=== PATIENT | male | born 1960 | race American Indian/Alaskan Native ===

== ENCOUNTER 2017-01-22 13:02 | Inpatient (IN) | payer OTHER ==
[2017-01-22] MEDS ORDERED: ATROPINE 0.1% (CARDIAC) ONE (13:05)
[2017-01-22] MEDS ORDERED: ATROPINE IV ONE ×2 (13:13→14:00)
[2017-01-22] MEDS ORDERED: INTROPIN DRIP 800 MG/D5W 250 ML 800 MG/250 ML BAG IV ONE (13:14)
[2017-01-22 13:55] LABS: Basophils % (Auto) 0.5 % (0.0-1.8); Eosinophils % (Auto) 1.9 % (0.0-4.3); Hematocrit 40.6 % (35.5-45.6); Hemoglobin 12.9 gm/dl (11.8-15.2); Mean Corpuscular HGB Conc 32 % (32-34); Mean Corpuscular Hemoglobin 27 pg (28-32); Mean Corpuscular Volume 85 fl (84-94); Platelet Count 136 K/mm3 (140-440); Red Blood Count 4.77 M/mm3 (3.65-5.03); Red Cell Distribution Width 16.3 % (13.2-15.2); White Blood Count 4.5 K/mm3 (4.5-11.0)
--- NOTE | 2017-01-22 14:00 | History and Physical Report ---
History of Present Illness Chief complaint: Unresponsive History of present illness: 56 YO Male with HTN, Obesity, DM, Metabolic Syndrome, Medication Noncompliance presents to ED for evaluation. Pt unable to provide history. History taken from EMS, and ED staff. EMS was notified, and upon arrival the patient was found down , unresponsive and diaphoretic. EMS found the patient to have a heart rate of 26, and serum glucose of 400. Pt was placed him on a external pacemaker and became minimally responsive but was still nonverbal and mostly not following commands. No reports of fever, chills, CP, Palpitation, NVD, prodictive cough, recent ill contacts, foreign travel, individual/family history of DVT/PE, leg swelling, calf pain, prolonged travel/immobility, hemoptysis. Past History Past Medical History: diabetes, hypertension, other (metabolic sundrome,) Past Surgical History: Other (Right Ankle) Social history: single. denies: smoking, alcohol abuse, prescription drug abuse Family history: CAD, hypertension Medications and Allergies Allergies Allergy/AdvReac Type Severity Reaction Status Date / Time Unable to Assess Allergy Verified 01/22/17 13:12 Home Medications Medication Instructions Recorded Confirmed Last Taken Type Furosemide [Lasix TAB] 20 mg PO DAILY 01/22/17 01/22/17 Unknown History Nitroglycerin [Nitrostat] 0.4 mg SL PRN PRN 01/22/17 01/22/17 Unknown History Torsemide [Demadex] 1.5 tab PO DAILY 01/22/17 01/22/17 Unknown History Active Meds: Active Medications Atropine Sulfate (Atropine) 1 mg IV ONCE.ED ONE Stop: 01/22/17 14:01 Dopamine HCl/Dextrose (Intropin Drip 800 Mg/D5w 250 Ml) 800 mg in 250 mls @ 4.252 mls/hr IV TITR ONE; 2 MCG/KG/MIN PRN Reason: Protocol Stop: 01/25/17 00:01 Last Titration: 01/22/17 13:40 Dose: 7 mcg/kg/min, 14.88 mls/hr Review of Systems ROS unobtainable: due to mental status Exam - Constitutional Vitals: Temp Pulse Resp BP Pulse Ox 97.2 F L 36 L 18 93/77 100 01/22/17 13:44 01/22/17 13:47 01/22/17 13:47 01/22/17 13:47 01/22/17 13:47 General appearance: Present: severe distress - EENT Eyes: Present: EOM intact - Neck Neck: Present: supple, normal ROM - Respiratory Respiratory effort: labored Respiratory: bilateral: diminished - Cardiovascular Rhythm: other (bradycardic) Heart Sounds: Present: S1 & S2 - Extremities Extremities: pulses symmetrical, No edema Extremity abnormal: edema Peripheral Pulses: within normal limits - Abdominal General gastrointestinal: Present: soft, non-tender, non-distended, normal bowel sounds Male genitourinary: Present: normal - Integumentary Integumentary: Present: clear, dry, pale, decreased turgor - Musculoskeletal Musculoskeletal: generalized weakness - Psychiatric Psychiatric: no intact judgment & insight, no memory intact - Neurologic Neurologic: moves all extremities, no gait normal Results - Labs CBC & Chem 7: 01/22/17 13:48 01/22/17 14:53 Labs: Abnormal lab results 01/22/17 Range/Units 13:48 Edmunds % (Auto) 13.3 H (0.0-7.3) % Assessment and Plan - Patient Problems (1) Cardiogenic shock Current Visit: Yes Status: Acute Plan to address problem: Cardiology consulted, pt placed on IV pressor support, Pt taken urgently to laboratory assistant. Transcutaneous pacer placed in ED. The high probability of a clinically significant, sudden or life threatening deterioration of the [Cardiac, pulmonary, renal] system(s) required my full and direct attention, intervention and personal management. The aggregate critical care time was [65] minutes. This time is in addition to time spent performing reported procedures but includes the following: [x] Data Review and interpretation [x] Patient assessment and monitoring of vital signs [x] Documentation [x] Medication orders and management (2) NSTEMI (non-ST elevated myocardial infarction) Current Visit: Yes Status: Acute Plan to address problem: Cardiology consulted, Pt taken urgently to laboratory assistant, anticoagulation pending results of laboratory assistant intervention, as per cardiology team. (3) ARF (acute renal failure) Current Visit: Yes Status: Acute Qualifiers: Acute renal failure type: A Plan to address problem: IVF resuscitation, supportive care, monitor uop q shift (4) ARF (acute respiratory failure) Current Visit: Yes Status: Acute Qualifiers: Respiratory failure complication: R (5) Encephalopathy Current Visit: Yes Status: Acute Plan to address problem: supportive care, CT head, (6) Hyponatremia syndrome Current Visit: Yes Status: Acute Plan to address problem: IVF replacement, repeat bmp (7) DVT prophylaxis Current Visit: Yes Status: Acute
--- NOTE | 2017-01-22 14:01 | Emergency Department Report ---
HPI - General Chief Complaint: Dyspnea/Respdistress - HPI HPI: This is a 56-year-old AA male presents to the emergency department via EMS from home after the patient was found unresponsive. EMS found the patient to have a heart rate of 26 and they also did an Accu-Chek and found the sugar to be greater than 400. They placed him on a external pacemaker with pads. Once he was getting externally paced, the patient was more responsive but was still nonverbal and mostly not following commands. Secondary to the patient's current condition he is a poor historian but the medications that he arrived with show a high probability of a history of CHF. There also appears to be some history of coronary artery disease and/or angina as he has nitroglycerin sublingual available as well. ED Past Medical Hx - Past Medical History Previous Medical History?: Yes Hx Congestive Heart Failure: Yes Hx Diabetes: Yes - Social History Smoking Status: Unknown if ever smoked - Medications Home Medications: Home Medications Medication Instructions Recorded Confirmed Last Taken Type Furosemide [Lasix TAB] 20 mg PO DAILY 01/22/17 01/22/17 Unknown History Nitroglycerin [Nitrostat] 0.4 mg SL PRN PRN 01/22/17 01/22/17 Unknown History Torsemide [Demadex] 1.5 tab PO DAILY 01/22/17 01/22/17 Unknown History ED Review of Systems ROS: Stated complaint: UNRESPONSIVE Other details as noted in HPI Comment: Unobtainable due to pts medical conditions Physical Exam - Physical Exam Vital Signs: Vital Signs 01/22/17 01/22/17 01/22/17 13:05 13:17 13:44 Temperature 97.2 F L Pulse Rate 30 L 30 L Respiratory 26 H Rate Blood Pressure 104/76 [Left] O2 Sat by Pulse 100 100 Oximetry 01/22/17 13:47 Temperature Pulse Rate 36 L Respiratory 18 Rate Blood Pressure 93/77 [Left] O2 Sat by Pulse 100 Oximetry Physical Exam: GENERAL: The patient is ill-appearing and unresponsive. HENT: Normocephalic. Atraumatic. Patient has moist mucous membranes. EYES: Patient's eyes are open but he does not display any current extraocular motion. Pupils equal reactive to light bilaterally. NECK: Supple. Trachea is midline. CHEST/LUNGS: Clear to auscultation. There is no respiratory distress noted. HEART/CARDIOVASCULAR: Regular. There is no tachycardia. There is no gallop rub or murmur. ABDOMEN: Abdomen is soft. Patient has normal bowel sounds. SKIN: Skin is slightly cool but dry. NEURO: Patient's eyes are open but he does not appear unresponsive. He does not follow any commands. He does withdraw to painful stimuli. He does have a gag reflex. MUSCULOSKELETAL: There is no tenderness to palpation or obvious deformity. Femoral pulses +2 over 4 bilaterally. ED Course Vital Signs 01/22/17 01/22/17 01/22/17 13:05 13:17 13:44 Temperature 97.2 F L Pulse Rate 30 L 30 L Respiratory 26 H Rate Blood Pressure 104/76 [Left] O2 Sat by Pulse 100 100 Oximetry 01/22/17 13:47 Temperature Pulse Rate 36 L Respiratory 18 Rate Blood Pressure 93/77 [Left] O2 Sat by Pulse 100 Oximetry - Consultations Consultation #1: I spoke with the metal lather on-call, Dr. Tip Sagastume, who is going to come into the emergency department and/or Hospital to place a temporary pacemaker. microbiology lab manager team has been notified. 01/22/17 14:02 - Central Line Placement Right Femoral Consent Obtained: emergent situation Time Out Performed: Yes Patient Placed on Monitor/Pulse Ox: Yes MD Prep: mask, gown, gloves Central Line Prep: Chlorhexidine scrub Local Anesthesia Used: Lidocaine 1% Amount of Anesthesia Used (mls): 3 Ultrasound Used for Placement: Yes Central Line Lumen Inserted: triple Bloods Obtained for Lab: No Central Line Position: good blood return, sutured in place with nyl Dressing Applied: Tegaderm, sterile gauze/tape Patient Tolerated Procedure: well Complications: none ED Medical Decision Making - Lab Data Result diagrams: 01/22/17 21:00 01/22/17 21:00 - EKG Data When compared to previous EKG there are: previous EKG unavailable Interpretation: other (junctional bradycardia with PVCs, low voltage QRS, nonspecific ST-T waves with T-wave inversions to the lateral leads V4 through V6 , prolonged QT, 36 bpm) - Radiology Data Radiology results: image reviewed interpreted by me: Chest x-ray shows some mild cardiomegaly and concern for a slightly widened mediastinum. No pneumothorax or pleural effusions. - Medical Decision Making 56-year-old male presents to the emergency department after he was found unresponsive and was found by EMS to have significant bradycardia with a heart rate of 26. Patient did come in with the same bradycardia and was responsive only to painful stimuli. He did have a gag reflex and spontaneous eye opening and had a pulse ox of 100% with supplemental oxygen and therefore did not appear to require intubation immediately. EKG showed a junctional sustained significant bradycardia but no ST elevation RI or any obvious heart block. He was given atropine without any improvement. He had palpable femoral pulses but no obtainable blood pressure. He was started on dopamine and was titrated until we had a blood pressure of about 100/40. Patient was placed back on the external pacers using the pads but it did not necessarily appear as if there was capture or perfusion. A right femoral central line was placed in case other pressors or resuscitation was necessary. Cardiology was consult it and came into the emergency department and took the patient to the Family Psychologist for a temporary pacer. Just prior to going to the sanitation laborer the patient did show some slight improvement and started talking, looking around. It appeared as if the patient has a hearing impairment or is deaf. The patient was admitted to the ICU from the Family Psychologist and was accepted for admission by the hospitalist Dr. Hurley. Dr. Hurley had sent the patient for a CT of the chest secondary to the chest x-ray but did not result in showing any concern for dissection or any other acute process of the chest. - Differential Diagnosis RI, heart block, dysrhythmia Critical Care Time: Yes Critical care time in (mins) excluding proc time.: 45 Critical care attestation.: If time is entered above; I have spent that time in minutes in the direct care of this critically ill patient, excluding procedure time. Critical care time was spent on this patient during his initial evaluation, multiple re-evaluations , titration of dopamine, ordering and interpretation of labs and imaging, discussion with the metal lather, discussion with the admitting hospitalist. This does not include time spent doing the right femoral central venous catheter placement. Critical Care Time: 45 minutes ED Disposition Clinical Impression: Cardiogenic shock, Hyperkalemia, Bradycardia with 31-40 beats per minute, Elevated troponin ARF (acute renal failure) Qualifiers: Acute renal failure type: unspecified Qualified Code(s): N17.9 - Acute kidney failure, unspecified Disposition: 09 OP ADMIT IP TO THIS HOSP Is pt being admited?: Yes Condition: Serious
[2017-01-22 14:04] LABS: INR 1.36 (0.87-1.13)
[2017-01-22 14:05] LABS: Partial Thromboplastin Time 34.4 Sec. (24.2-36.6)
[2017-01-22] MEDS ORDERED: PROVENTIL IH PRN (14:20)
[2017-01-22 14:37] LABS: Anion Gap TNR mmol/L; Blood Urea Nitrogen TNR mg/dL (9-20); Carbon Dioxide TNR mmol/L (22-30); Chloride TNR mmol/L (98-107); Sodium TNR mmol/L (137-145)
[2017-01-22 14:38] LABS: BUN/Creatinine Ratio TNR; Calcium TNR mg/dL (8.4-10.2); Glucose TNR mg/dL (75-100); Potassium TNR mmol/L (3.6-5.0)
[2017-01-22 14:39] LABS: Cholesterol TNR mg/dL (50-199); HDL Cholesterol TNR mg/dL (40-59); LDL Cholesterol,Direct TNR mg/dL (50-130); Triglycerides TNR mg/dL (2-149)
[2017-01-22] MEDS ORDERED: HEPARIN/NS 5000 UNIT/500ML(CATH LAB) 500 ML IR ONE (15:02)
[2017-01-22] MEDS: XYLOCAINE 2% INFILTRATI ONE ×2 (15:04→15:05)
[2017-01-22 15:10] LABS: BUN/Creatinine Ratio 14.21; Chloride 101.2 mmol/L (98-107); Potassium 5.9 mmol/L (3.6-5.0)
[2017-01-22 15:12] LABS: Albumin/Globulin Ratio 1.7 %; Bilirubin,Direct 0.5 mg/dL (0-0.2); Bilirubin,Indirect 0.5 mg/dL; Total Protein 6.3 g/dL (6.3-8.2)
--- NOTE | 2017-01-22 17:27 | Cardiac Catherization Report ---
TEMPORARY PACEMAKER PROCEDURE The patient is a 56-year-old male who came to the Emergency Room with an altered mental status, hyperkalemia and heart rate of 36 with evidence of complete heart block on the 12 lead electrocardiogram. A temporary pacemaker was recommended to stabilize the patient's heart rate and rhythm. PROCEDURE: The patient was prepped and draped in the sterile fashion exposing the right femoral vein. The right femoral vein was cannulated via the Seldinger technique and a sheath was placed, 6-Kittitian. Temporary pacemaker was advanced under fluoroscopic guidance and position in the right ventricle. The threshold was deemed to be less than one milliamp. The device was sutured into place. There was no evidence of hematoma. The patient was trashing about and uncooperative during the procedure. The pacemaker was set at 3 milliamps, heart rate of 70, synchronized. COMPLICATIONS: None. ESTIMATED BLOOD LOSS: Less than 10 mL. PREPROCEDURE DIAGNOSIS: Complete heart block. POSTPROCEDURE DIAGNOSES: Complete heart block. SEDATION: No intravenous sedation was given. He received 20 mL of subcutaneus Xylocaine. FINAL IMPRESSION: Complete heart block with bradycardia, unstable hemodynamics. PLAN: Temporary pacemaking, echocardiography, serial cardiac enzymes, consider permanent pacemaker, correct hyperkalemia. JOB# [id number] DANNY/KARINA CORADO
--- NOTE | 2017-01-22 17:55 | Cat Scan Report ---
FINAL REPORT PROCEDURE: CT CHEST WO CON TECHNIQUE: Computerized axial tomography of the chest was performed without contrast material. This study is performed without intravenous contrast and the sensitivity for pathology, including neoplasms, adenopathy, abscess, pulmonary embolism and aortic dissection, is reduced. HISTORY: dypsnea COMPARISON: No prior studies are available for comparison. TECHNICAL QUALITY: Satisfactory. FINDINGS: Heart and pericardium: Heart is enlarged. No pericardial effusion or thickening. Thoracic aorta: Normal contour. Pulmonary vasculature: Normal. Lymph nodes: 2 centimeter short axis right paratracheal lymph node is noted. Lungs: There are patchy bilateral airspace infiltrates, noted throughout the lungs diffusely, which may be related to infectious infiltrates. There may be a component of pulmonary edema. Pleural space: No effusion, thickening, or pneumothorax. Musculoskeletal structures: No significant abnormality. Upper abdominal structures: Small amount of free fluid is seen in the upper abdomen. IMPRESSION: Cardiomegaly. Bilateral pulmonary infiltrates, which may be related to pneumonia. Cannot exclude pulmonary edema.
[2017-01-22] MEDS ORDERED: KIONEX PO ONE (21:52)
[2017-01-22 22:01] LABS: BUN/Creatinine Ratio 15.62; Calcium 7.4 mg/dL (8.4-10.2); Chloride 106.3 mmol/L (98-107); Potassium 5.4 mmol/L (3.6-5.0)
[2017-01-22 22:05] LABS: INR 1.35 (0.87-1.13)
[2017-01-22] MEDS: CATAPRES PO PRN (22:10)
[2017-01-22 22:17] LABS: Hematocrit TNR % (35.5-45.6); Hemoglobin TNR gm/dl (11.8-15.2); Mean Corpuscular HGB Conc TNR % (32-34); Mean Corpuscular Hemoglobin TNR pg (28-32); Mean Corpuscular Volume TNR fl (84-94); Mean Platelet Volume TNR fl (6-12); Platelet Count TNR K/mm3 (140-440); Red Blood Count TNR M/mm3 (3.65-5.03); Red Cell Distribution Width TNR % (13.2-15.2); White Blood Count TNR K/mm3 (4.5-11.0)
[2017-01-22 22:18] LABS: Basophils % (Auto) TNR % (0.0-1.8); Eosinophils % (Auto) TNR % (0.0-4.3)
[2017-01-22 22:19] LABS: Diff Status TNR
--- NOTE | 2017-01-23 02:13 | Consultation ---
HISTORY OF PRESENT ILLNESS: The patient is a 56-year-old male who was found unresponsive with a heart rate of 26 and a blood sugar of 400. He has been unable to give any history. He became more responsive after an external pacemaker was placed. A Cardiology consult was requested because of persistent bradycardia and evidence of complete heart block on EKG. His past history is not available. Given his medications, it is suspected that he has hypertension, possible heart failure and possible coronary disease. He normally goes to [place]. There were no ST changes to suggest an acute myocardial infarction. There are no physical findings to suggest congestive heart failure. PAST HISTORY: There is no family available. It is unknown if he has had any operations, smoking history, alcohol history or if he is compliant with his medications. It is suspected that he has diabetes. MEDICATIONS: Includes sublingual nitroglycerin, Demadex, Lasix. REVIEW OF SYSTEMS: Not available at this time. PHYSICAL EXAMINATION: GENERAL: Well-developed, moderately overweight, alert, but disoriented and sometimes agitated. HEENT: Unremarkable. NECK: Reveals mild JVD. There are no bruits. Neck supple, no masses. LUNGS: Clear. No labored respirations. HEART: Bradycardia, rhythm regular, no rubs, murmurs, gallops appreciable at this time. ABDOMEN: Soft, nontender, no masses, somewhat distended. Bowel sounds intact, but diminished. NEUROLOGIC: Grossly symmetrical other than an altered mental status. SKIN: Clear. EXTREMITIES: No cyanosis or clubbing. There is trace pedal edema. There is a scar about the right ankle suggesting previous surgery. LABORATORY DATA: EKG shows sinus rhythm with complete heart block, junctional rhythm of about 36. There are nonspecific ST-T changes. The T-waves are either flattened or slightly inverted. Blood tests remarkable for potassium 5.9. Platelet count 136. Creatinine 1.9. Blood sugar 334. CO2 level 25. Anion gap 17. Mild elevation of alkaline phosphatase and CK. TSH normal. IMPRESSION: 1. Complete heart block with bradycardia in labile blood pressure readings, hypertensive at times, but he has been on IV dopamine. 2. Uncontrolled diabetes. 3. Acute renal failure with hyperkalemia. 4. Obesity. 5. Altered mental status, consider metabolic encephalopathy, intracranial process, cerebral hypoperfusion. 6. Cardiomegaly on chest x-ray: CAT scan pending. 7. Suspect history of hypertension. 8. Suspect history of coronary artery disease: There is no suggestion of acute coronary syndrome at this time. PLAN: Admit to ICU, hydrate, insulin, temporary pacemaking, echocardiography. Consider Neurology consultation. Thank you for this consultation. JOB# [id number] DANNY/NTS
--- NOTE | 2017-01-23 07:26 | XRay Report ---
AP CHEST: HISTORY: chest pain No comparison. Mild cardiomegaly and pulmonary venous congestion are identified. No evidence for pneumonia, pleural effusion or pneumothorax. The thoracic cage is grossly intact. IMPRESSION: Cardiomegaly and pulmonary venous congestion.
[2017-01-23 07:40] LABS: Basophils % (Auto) 0.3 % (0.0-1.8); Eosinophils % (Auto) 1.9 % (0.0-4.3); Hematocrit 36.9 % (35.5-45.6); Hemoglobin 11.7 gm/dl (11.8-15.2); Mean Corpuscular HGB Conc 32 % (32-34); Mean Corpuscular Hemoglobin 27 pg (28-32); Mean Corpuscular Volume 85 fl (84-94); Platelet Count 122 K/mm3 (140-440); Red Blood Count 4.35 M/mm3 (3.65-5.03); Red Cell Distribution Width 16.2 % (13.2-15.2); White Blood Count 6.9 K/mm3 (4.5-11.0)
--- NOTE | 2017-01-23 08:07 | Admit Criteria Form ---
Admission Criteria Documentation: MYOCARDIAL INFARCTION Clinical Indications for Admission to Inpatient Care (Place 'X' for any and all applicable criteria): Admission is indicated for 1 or more of the following (1)(2)(3)(4): [ X]I. Acute AL [ ]II. Contraindications and/or Inappropriate clinical situations for Observational Care in patients with Myocardial Infarction, when ANY ONE of the following is required: [ ]a) Patient with High risk of cardiac embolism (e.g, patients with previous cardiac embolism, LVEF < 40%, age >75 and patients with prosthetic valve) 18 [ ]b) Patient with Moderate risk including DM patient, CAD and patient aged 65-75 18 [ ]c) Patient with any change in cardiac biomarker especially troponin should be managed as high risk in an inpatient setting 19 [ ]d) Physician judgement irrespective of ECG and other diagnostic findings 20 [ ]III.General contraindications and/or Inappropriate clinical situations for Observational Care in patients with Myocardial Infarction, when ANY ONE of the following is required: [ ]a) Prediction of prolongation of LOS based on ANY ONE of the following may be considered as a contraindication for observational care 2, 3, 4, 5, 6, 7, 8, 9, 10, 11 [ ]i) Age > 65 yrs. [ ]ii) Patient arriving by ambulance [ ]iii) Patient with high acuity [ ]iv) Patient requiring vital sign monitoring [ ]v) Patient on IV medication [ ]b) Systolic blood pressures greater than or equal to 180mmHg 3,12 [ ]c) Patient with altered mental status including delirium and other alteration of consciousness, (3) [ ]d) Patient whose discharge disposition will be to a penitentiary home or rehabilitation home should not be managed in Emergency Department Observation Unit. CMS rule requires 3 days hospital stay before such placement. 3,13 [ ]e) Patient with failure to thrive due to broad array of etiologies 3 ,16,17 [ ]f) Inability to ambulate 3,14 Extended stay beyond goal length of stay may be needed for (1)(18)(20)(24)(25): [ ]a) Hemodynamic instability, persisting symptoms after intensive medical management, or recurring severe, prolonged symptoms [ ]b) Intravascular procedural complications such as acute vessel closure, stent thrombosis, stent malposition, or vessel dissection (26)(27)(28) [ ]c) Extravascular procedural complications such as retroperitoneal hematoma , pericardial effusion, or cardiac tamponade [ ]d) Entry site complications causing bleeding, hematoma or distal ischemia and requiring ongoing monitoring, surgical repair or surgical thrombectomy. Dangerous arrhythmia [ ]e) Complicated percutaneous coronary intervention (e.g., unsuccessful percutaneous coronary intervention or percutaneous coronary intervention of non- [place] vessel) [ ]f) Urgent or emergent surgery for complications of AL (e.g., ventricular rupture, valvular insufficiency) [ ]g) Surgical revascularization via coronary artery bypass graft [ ]h) Heart failure (e.g., pulmonary edema) [ ]i) Unstable pulmonary comorbidities, including COPD or pneumonia (31) [ ]j) Acute renal failure The original [employer] content created by [employer] has been revised. The portions of the content which have been revised are identified through the use of italic text or in bold, and [employer] has neither reviewed nor approved the modified material. All other unmodified content is copyright [facility] [employer] Please see references footnoted in the original [employer] edition 2016 Admission Criteria Met: Yes
[2017-01-23 08:34] LABS: Albumin 3.8 g/dL (3.9-5); Albumin/Globulin Ratio 1.4 %; Bilirubin,Total 1.1 mg/dL (0.1-1.2); Calcium 8.5 mg/dL (8.4-10.2); Magnesium 1.7 mg/dL (1.7-2.3); Potassium 4.7 mmol/L (3.6-5.0); Total Protein 6.6 g/dL (6.3-8.2)
--- NOTE | 2017-01-23 10:19 | Progress Note ---
Assessment and Plan Assessment and plan: 56 YO Male with HTN, Obesity, DM, Metabolic Syndrome, Medication Noncompliance presents to ED for evaluation. Pt unable to provide history. History taken from EMS, and ED staff. EMS was notified, and upon arrival the patient was found down , unresponsive and diaphoretic. As per patient he fell on his right shoulder and woke up shoulder pain. EMS found the patient to have a heart rate of 26, and serum glucose of 400. Pt was placed him on a external pacemaker, he went on to have transvenous pacemaker which is in his left groin. Bradycardia leading to cardiogenic syncope He received atropine 2, transcutaneous pacing and was converted to transvenous pacing Continue transvenous pacing, rate has been reduced by cardiology It is suspected that it was most likely due to hyperkalemia which has now been corrected, we'll continue to monitor Case discussed with cardiology/[facility] fu echo ACS ruled out, NSTEMI ruled out, Trop max was 0.04 case also discussed with [facility], the agreed with him staying in this hospital to finish out his care Hyperkalemia sp Kayexalate, now resolved, continue to monitor levels daily\ avoid any K sparing diuretic, RUFUS or ARB Cardiogenic shock Has only weaned off dopamine drip Acute on chronic CHF with pulmonary venous congestion IV diuresis as tolerated, optimize meds, fup echo acute renal failure/Vasomotor nephropathy creat from 1.9 to 1.6, donald in place resolving with IVF, check Renal US and nephrology consult acute respiratory failure with Hypoxia continue oxygen supplement Toxic Metabolic Encephalopathy improving, due to high K and Bradycardia, now resolved R shoulder pain/ sp fall check Xray Hyponatremia syndrome IVF replacement, DVT prophylaxis lovenox, The high probability of a clinically significant, sudden or life threatening deterioration of the [Cardiac, pulmonary, renal] system(s) required my full and direct attention, intervention and personal management. The aggregate critical care time was [65] minutes. This time is in addition to time spent performing reported procedures but includes the following: [x] Data Review and interpretation [x] Patient assessment and monitoring of vital signs [x] Documentation [x] Medication orders and management History Interval history: The patient does not remember why he is in the hospital. He believes he passed out. States that when he passed out he hit his right shoulder hurts. Hospitalist Physical - Physical exam Narrative exam: General: Patient appears well in no distress HEENT: MMM, EOMI cardiac: S1-S2 heard lungs: clear to auscultation, abdomen: soft, nontender, nondistended bowel sounds positive Right shoulder tenderness extremities: no edema clubbing or cyanosis Skin: no rash or lesion Neuro: Patient is deaf, therefore communicates by writing, Psych: appropriate behavior and mood, cognition intact - Constitutional Vitals: Temp Pulse Resp BP Pulse Ox 97.9 F 71 17 131/89 96 01/23/17 07:55 01/23/17 04:24 01/23/17 04:24 01/23/17 04:24 01/23/17 07:39 Results - Labs CBC & Chem 7: 01/23/17 06:45 01/23/17 06:45 Labs: Laboratory Last Values WBC 6.9 K/mm3 (4.5-11.0) 01/23/17 06:45 RBC 4.35 M/mm3 (3.65-5.03) 01/23/17 06:45 Hgb 11.7 gm/dl (11.8-15.2) L 01/23/17 06:45 Hct 36.9 % (35.5-45.6) 01/23/17 06:45 MCV 85 fl (84-94) 01/23/17 06:45 MCH 27 pg (28-32) L 01/23/17 06:45 MCHC 32 % (32-34) 01/23/17 06:45 RDW 16.2 % (13.2-15.2) H 01/23/17 06:45 Plt Count 122 K/mm3 (140-440) L 01/23/17 06:45 Lymph % (Auto) 20.3 % (13.4-35.0) 01/23/17 06:45 [place] % (Auto) 10.4 % (0.0-7.3) H 01/23/17 06:45 Eos % (Auto) 1.9 % (0.0-4.3) 01/23/17 06:45 Baso % (Auto) 0.3 % (0.0-1.8) 01/23/17 06:45 Lymph # 1.4 K/mm3 (1.2-5.4) 01/23/17 06:45 [place] # 0.7 K/mm3 (0.0-0.8) 01/23/17 06:45 Eos # 0.1 K/mm3 (0.0-0.4) 01/23/17 06:45 Baso # 0.0 K/mm3 (0.0-0.1) 01/23/17 06:45 Add Manual Diff TNR 01/22/17 21:00 Seg Neutrophils % 67.1 % (40.0-70.0) 01/23/17 06:45 Seg Neutrophils # 4.6 K/mm3 (1.8-7.7) 01/23/17 06:45 PT 17.4 Sec. (12.2-14.9) H 01/22/17 21:00 INR 1.35 (0.87-1.13) H 01/22/17 21:00 APTT 34.4 Sec. (24.2-36.6) 01/22/17 13:48 D-Dimer 325.55 ng/mlDDU (0-234) H 01/22/17 17:21 VBG pH 7.371 (7.320-7.420) 01/22/17 13:59 Sodium 141 mmol/L (137-145) 01/23/17 06:45 Potassium 4.7 mmol/L (3.6-5.0) 01/23/17 06:45 Chloride 103.0 mmol/L (98-107) 01/23/17 06:45 Carbon Dioxide 26 mmol/L (22-30) 01/23/17 06:45 Anion Gap 17 mmol/L 01/23/17 06:45 BUN 24 mg/dL (9-20) H 01/23/17 06:45 Creatinine 1.6 mg/dL (0.8-1.5) H 01/23/17 06:45 Estimated GFR 55 ml/min 01/23/17 06:45 BUN/Creatinine Ratio 15.00 % 01/23/17 06:45 Glucose 153 mg/dL (75-100) H 01/23/17 06:45 POC Glucose 270 (70-105) H 01/22/17 17:45 Calcium 8.5 mg/dL (8.4-10.2) 01/23/17 06:45 Magnesium 1.70 mg/dL (1.7-2.3) 01/23/17 06:45 Total Bilirubin 1.10 mg/dL (0.1-1.2) 01/23/17 06:45 Direct Bilirubin 0.5 mg/dL (0-0.2) H 01/22/17 14:25 Indirect Bilirubin 0.5 mg/dL 01/22/17 14:25 AST 18 units/L (5-40) 01/23/17 06:45 ALT 20 units/L (7-56) 01/23/17 06:45 Alkaline Phosphatase 181 units/L (35-129) H 01/23/17 06:45 Total Creatine Kinase 267 units/L (55-170) H 01/22/17 13:48 Troponin T 0.039 ng/mL (0.00-0.029) H 01/22/17 21:00 Total Protein 6.6 g/dL (6.3-8.2) 01/23/17 06:45 Albumin 3.8 g/dL (3.9-5) L 01/23/17 06:45 Albumin/Globulin Ratio 1.4 % 01/23/17 06:45 Triglycerides TNR 01/22/17 13:48 Cholesterol TNR 01/22/17 13:48 LDL Cholesterol Direct TNR 01/22/17 13:48 HDL Cholesterol TNR 01/22/17 13:48 Cholesterol/HDL Ratio TNR 01/22/17 13:48 TSH 3.350 mlU/mL (0.270-4.200) 01/22/17 13:48
--- NOTE | 2017-01-23 11:58 | Progress Note ---
Assessment and Plan Junctional bradycardia secondary to hyperkalemia s/p temporary transvenous pacemaker normal TSH Hyperkalemia Acute renal failure Hearing impaired/Deaf Diabetes Hypertension Obese Plan: Temporary TVP rate reduced to 50bpm on demand. Continue to monitor. Subjective Date of service: 01/23/17 Interval history: Patient denies chest pain and shortness of breath. temporary transvenous pacemaker in place. Objective Vital Signs Temp Pulse Pulse Pulse Resp BP BP 01/23/17 07:55 97.9 F 01/23/17 07:39 01/23/17 04:24 71 17 131/89 01/23/17 04:00 71 18 126/88 01/23/17 03:31 71 16 122/95 01/23/17 03:00 73 17 121/78 01/23/17 02:30 72 19 125/79 01/23/17 02:00 73 19 114/75 01/23/17 01:31 71 16 150/92 01/23/17 01:00 70 18 108/70 01/23/17 00:31 70 19 123/75 01/23/17 00:05 72 70 19 01/23/17 00:00 98.2 F 70 75 71 20 144/86 01/22/17 23:30 70 19 154/113 01/22/17 23:05 70 18 184/97 01/22/17 23:00 70 20 184/97 01/22/17 22:33 70 20 171/120 01/22/17 22:30 70 23 171/120 01/22/17 22:21 70 14 169/115 01/22/17 22:11 70 14 163/111 01/22/17 22:10 70 169/105 01/22/17 22:01 70 20 174/115 01/22/17 21:51 70 19 151/106 01/22/17 21:41 70 21 160/98 01/22/17 21:30 70 19 160/98 01/22/17 21:21 70 20 160/85 01/22/17 21:11 70 14 137/89 01/22/17 21:00 70 15 137/89 01/22/17 20:51 70 18 143/100 01/22/17 20:41 69 16 140/95 01/22/17 20:30 70 14 140/95 08/20/17 20:21 70 21 135/92 08/20/17 20:20 70 68 21 01/22/17 20:11 70 16 135/96 01/22/17 20:00 98.7 F 69 17 135/96 01/22/17 19:51 70 19 139/90 01/22/17 19:41 70 17 132/94 01/22/17 19:31 70 23 132/94 01/22/17 19:21 70 16 136/91 01/22/17 19:11 70 16 122/85 01/22/17 19:01 70 20 122/85 01/22/17 18:51 70 13 144/85 01/22/17 18:41 70 17 123/99 01/22/17 18:31 70 14 123/99 01/22/17 18:21 70 20 135/93 01/22/17 18:11 70 12 124/86 01/22/17 18:00 70 22 124/86 01/22/17 17:51 70 15 133/93 01/22/17 17:41 70 21 131/96 01/22/17 17:31 70 19 131/96 01/22/17 17:21 70 17 138/89 01/22/17 17:11 70 19 130/92 01/22/17 17:07 70 21 01/22/17 16:30 70 23 120/89 01/22/17 16:20 70 15 01/22/17 16:10 70 18 123/79 01/22/17 16:00 70 11 L 133/88 01/22/17 15:56 01/22/17 14:45 40 L 18 122/78 Pulse Ox 01/23/17 07:55 01/23/17 07:39 96 01/23/17 04:24 100 01/23/17 04:00 99 01/23/17 03:31 100 01/23/17 03:00 100 01/23/17 02:30 100 01/23/17 02:00 100 01/23/17 01:31 100 01/23/17 01:00 100 01/23/17 00:31 100 01/23/17 00:05 100 01/23/17 00:00 100 01/22/17 23:30 100 01/22/17 23:05 100 01/22/17 23:00 100 01/22/17 22:33 100 01/22/17 22:30 100 01/22/17 22:21 97 01/22/17 22:11 100 01/22/17 22:10 01/22/17 22:01 100 01/22/17 21:51 98 01/22/17 21:41 100 01/22/17 21:30 100 01/22/17 21:21 99 01/22/17 21:11 100 01/22/17 21:00 100 01/22/17 20:51 98 01/22/17 20:41 99 01/22/17 20:30 100 01/22/17 20:21 99 01/22/17 20:20 99 01/22/17 20:11 100 01/22/17 20:00 99 01/22/17 19:51 100 01/22/17 19:41 99 01/22/17 19:31 100 01/22/17 19:21 98 01/22/17 19:11 95 01/22/17 19:01 100 01/22/17 18:51 99 01/22/17 18:41 96 01/22/17 18:31 100 01/22/17 18:21 98 01/22/17 18:11 100 01/22/17 18:00 100 01/22/17 17:51 98 01/22/17 17:41 100 01/22/17 17:31 99 01/22/17 17:21 99 01/22/17 17:11 99 01/22/17 17:07 01/22/17 16:30 98 01/22/17 16:20 97 01/22/17 16:10 100 01/22/17 16:00 97 01/22/17 15:56 98 01/22/17 14:45 100 - Physical Examination General: No Apparent Distress HEENT: Positive: PERRL Neck: Positive: trachea midline Cardiac: Positive: Other (paced) - Labs and Meds Cardiac Enzymes 01/22/17 01/23/17 Range/Units 14:25 06:45 AST 23 18 (5-40) units/L Coagulation 01/22/17 Range/Units 21:00 PT 17.4 H (12.2-14.9) Sec. INR 1.35 H (0.87-1.13) CBC 01/22/17 01/23/17 Range/Units 21:00 06:45 WBC TNR 6.9 RBC TNR 4.35 Hgb TNR 11.7 L Hct TNR 36.9 Plt Count TNR 122 L Lymph # TNR 1.4 [place] # TNR 0.7 Eos # TNR 0.1 Baso # TNR 0.0 Comprehensive Metabolic Panel 01/22/17 01/22/17 01/22/17 Range/Units 14:25 14:53 21:00 Sodium 137 141 (137-145) mmol/L Potassium 5.9 H 5.4 H (3.6-5.0) mmol/L Chloride 101.2 106.3 (98-107) mmol/L Carbon Dioxide 25 23 (22-30) mmol/L BUN 27 H 25 H (9-20) mg/dL Creatinine 1.9 H 1.6 H (0.8-1.5) mg/dL Glucose 334 H 173 H (75-100) mg/dL Calcium 8.0 L 7.4 L (8.4-10.2) mg/dL Direct Bilirubin 0.5 H (0-0.2) mg/dL Indirect Bilirubin 0.5 mg/dL AST 23 (5-40) units/L ALT 23 (7-56) units/L Alkaline Phosphatase 195 H (35-129) units/L Total Protein 6.3 (6.3-8.2) g/dL Albumin 4.0 (3.9-5) g/dL 01/23/17 Range/Units 06:45 Sodium 141 (137-145) mmol/L Potassium 4.7 (3.6-5.0) mmol/L Chloride 103.0 (98-107) mmol/L Carbon Dioxide 26 (22-30) mmol/L BUN 24 H (9-20) mg/dL Creatinine 1.6 H (0.8-1.5) mg/dL Glucose 153 H (75-100) mg/dL Calcium 8.5 (8.4-10.2) mg/dL Direct Bilirubin (0-0.2) mg/dL Indirect Bilirubin mg/dL AST 18 (5-40) units/L ALT 20 (7-56) units/L Alkaline Phosphatase 181 H (35-129) units/L Total Protein 6.6 (6.3-8.2) g/dL Albumin 3.8 L (3.9-5) g/dL
--- NOTE | 2017-01-23 12:46 | Consultation ---
History of Present Illness Consult date: 01/23/17 Reason for consult: other (bradycardia with heart block) History of present illness: Called to evaluate case of a 56-year-old -Luxembourger male, asked to assess his admission to the ICU secondary to bradycardia and complete heart block. Communication barrier noted, the patient is deaf but able to answer questions written down. He was found unresponsive at home and EMS were called. The patient was found with severe bradycardia, shock and temporary pacemaker was placed in with pads and then rushed to the ER. Per continue the ER and cardiology was called, the patient being rushed to the Lab where he had a temporary implantable pacemaker in. Currently the patient denies any chest pain or respiratory problems. There is no history of fever. Apparently needed drug use related to the event. Prior history relevant for CHF and CAD. No family members available. Past History Past Medical History: diabetes, hypertension, other (metabolic sundrome,) Past Surgical History: Other (Right Ankle) Social history: single. denies: smoking, alcohol abuse, prescription drug abuse Family history: CAD, hypertension Medications and Allergies Allergies Allergy/AdvReac Type Severity Reaction Status Date / Time Unable to Assess Allergy Verified 01/22/17 13:12 Home Medications Medication Instructions Recorded Confirmed Last Taken Type Furosemide [Lasix TAB] 20 mg PO DAILY 01/22/17 01/22/17 Unknown History Nitroglycerin [Nitrostat] 0.4 mg SL PRN PRN 01/22/17 01/22/17 Unknown History Torsemide [Demadex] 1.5 tab PO DAILY 01/22/17 01/22/17 Unknown History Active Meds: Active Medications Albuterol (Proventil) 2.5 mg IH Q3HRT PRN PRN Reason: Shortness Of Breath Clonidine HCl (Catapres) 0.1 mg PO Q6HR PRN PRN Reason: Hypertension Last Admin: 01/22/17 22:10 Dose: 0.1 mg Dopamine HCl/Dextrose (Intropin Drip 800 Mg/D5w 250 Ml) 800 mg in 250 mls @ 4.252 mls/hr IV TITR ONE; 2 MCG/KG/MIN PRN Reason: Protocol Stop: 01/25/17 00:01 Last Titration: 01/22/17 13:40 Dose: 7 mcg/kg/min, 14.88 mls/hr Physical Examination Vital signs: Vital Signs Pulse Pulse Ox 30 L 100 01/22/17 13:05 01/22/17 13:05 General appearance: no acute distress, other (morbidly obese) Eyes: non-icteric ENT: oropharynx moist Neck: supple, no lymphadenopathy, no JVD (difficult to evaluate due to body habitus) Effort: normal Ascultation: Bilateral: clear, diminished breath sounds Cardiovascular: irregular rhythm Gastrointestinal: normoactive bowel sounds, non-distended Integumentary: normal Results - Laboratory Findings CBC and BMP: 01/23/17 06:45 01/23/17 06:45 PT/INR, D-dimer PT 17.4 Sec. (12.2-14.9) H 01/22/17 21:00 INR 1.35 (0.87-1.13) H 01/22/17 21:00 D-Dimer 325.55 ng/mlDDU (0-234) H 01/22/17 17:21 Abnormal lab findings: Abnormal Labs 01/22/17 01/22/17 01/22/17 14:25 14:53 17:21 Hgb MCH RDW Plt Count [place] % (Auto) PT INR D-Dimer Potassium 5.9 H BUN 27 H Creatinine 1.9 H Glucose 334 H POC Glucose Calcium 8.0 L Direct Bilirubin 0.5 H Alkaline Phosphatase 195 H Troponin T 0.041 H Albumin 01/22/17 01/22/17 01/22/17 17:21 17:45 21:00 Hgb MCH RDW Plt Count [place] % (Auto) PT INR D-Dimer 325.55 H Potassium BUN Creatinine Glucose POC Glucose 270 H Calcium Direct Bilirubin Alkaline Phosphatase Troponin T 0.039 H Albumin 01/22/17 01/22/17 01/23/17 21:00 21:00 06:45 Hgb 11.7 L MCH 27 L RDW 16.2 H Plt Count 122 L [place] % (Auto) 10.4 H PT 17.4 H INR 1.35 H D-Dimer Potassium 5.4 H BUN 25 H Creatinine 1.6 H Glucose 173 H POC Glucose Calcium 7.4 L Direct Bilirubin Alkaline Phosphatase Troponin T Albumin 01/23/17 01/23/17 06:45 11:40 Hgb MCH RDW Plt Count [place] % (Auto) PT INR D-Dimer Potassium BUN 24 H Creatinine 1.6 H Glucose 153 H POC Glucose 179 H Calcium Direct Bilirubin Alkaline Phosphatase 181 H Troponin T Albumin 3.8 L - Diagnostic Findings Chest x-ray: report reviewed Assessment and Plan Acute bradycardia with complete heart block episode. Temporary pacemaker placement. Currently in both femoral areas, be reevaluated by it portfolio manager this afternoon Morbid obesity CAD May need to be reevaluated for HER associated conditions including ASPEN, but history is not clear at this time. Recommendations Continue hemodynamic monitoring. Continue oxygen support as needed to maintain oxygen for 90% Pacemaker reassessment by cardiology and recommend femoral access to be removed on next 72 hours if possible. Reassess and possible further respiratory history for the older related events. Monitor for sleep apnea while in the unit in the meantime. Discussed with nursing staff. Critical care time was 35 minutes of [id number] evaluation and coordination of care
--- NOTE | 2017-01-23 14:55 | XRay Report ---
Portable supine chest: Line placement. The right PICC line tip in the superior SVC. The heart is big and there is generalized vascular congestion. No perivascular edema and no effusion identified. Compared to the patient's prior study of January 22 the congestion may be slightly worse. Impression: Vascular congestion. Adequate PICC line position. Advancing the line approximately 3 cm would optimal.
--- NOTE | 2017-01-23 16:25 | XRay Report ---
RIGHT SHOULDER RADIOGRAPHS INDICATION: Right shoulder pain. COMPARISON: None similar. FINDINGS: Frontal and Y views of the right shoulder, 3 projections demonstrate normal humeral head contour, well positioned against the glenoid. Intact acromioclavicular joint. Slight degenerative changes. Preserved scapular contour. Normal visualized right ribs. Minimal fluid or thickening along the right minor fissure. Right upper extremity PICC tip along the mid SVC. CONCLUSION: No acute right shoulder radiographic abnormality with few other findings, as described. Thank you for the opportunity to participate in this patient's care.
[2017-01-23] MEDS: CATAPRES PO PRN (16:32)
[2017-01-23] MEDS: MORPHINE IV PRN (16:32)
[2017-01-23] MEDS: PERCOCET 5/325 PO PRN ×2 (16:33→23:33)
[2017-01-23] MEDS: LOVENOX SUB-Q SCH (21:30)
[2017-01-23 23:06] LABS: Alanine Aminotransferase 18 units/L (7-56); Albumin 3.7 g/dL (3.9-5); Albumin/Globulin Ratio 1.2 %; Alkaline Phosphatase 179 units/L (35-129); Anion Gap 18 mmol/L; BUN/Creatinine Ratio 17.69; Blood Urea Nitrogen 23 mg/dL (9-20); Calcium 8.5 mg/dL (8.4-10.2); Carbon Dioxide 25 mmol/L (22-30); Chloride 99.8 mmol/L (98-107); Glucose 296 mg/dL (75-100); Sodium 137 mmol/L (137-145); Total Protein 6.7 g/dL (6.3-8.2)
[2017-01-23 23:11] LABS: Potassium 5.8 mmol/L (3.6-5.0)
[2017-01-24] MEDS: LASIX IV SCH (05:53)
[2017-01-24 06:08] LABS: Alanine Aminotransferase 16 units/L (7-56); Albumin 3.5 g/dL (3.9-5); Albumin/Globulin Ratio 1.3 %; Alkaline Phosphatase 163 units/L (35-129); Anion Gap 16 mmol/L; BUN/Creatinine Ratio 16.92; Blood Urea Nitrogen 22 mg/dL (9-20); Calcium 8.4 mg/dL (8.4-10.2); Carbon Dioxide 26 mmol/L (22-30); Glucose 228 mg/dL (75-100); Potassium 5.2 mmol/L (3.6-5.0); Sodium 135 mmol/L (137-145); Total Protein 6.3 g/dL (6.3-8.2)
[2017-01-24] MEDS ORDERED: KIONEX PO ONE (08:00)
[2017-01-24] MEDS: PERCOCET 5/325 PO PRN (08:53)
[2017-01-24] MEDS: MORPHINE IV PRN (08:54)
[2017-01-24 09:19] LABS: Hematocrit 35.8 % (35.5-45.6); Hemoglobin 11.7 gm/dl (11.8-15.2); Mean Corpuscular HGB Conc 33 % (32-34); Mean Corpuscular Hemoglobin 27 pg (28-32); Mean Corpuscular Volume 84 fl (84-94); Platelet Count 126 K/mm3 (140-440); Red Blood Count 4.28 M/mm3 (3.65-5.03); Red Cell Distribution Width 15.8 % (13.2-15.2); White Blood Count 7.7 K/mm3 (4.5-11.0)
[2017-01-24 09:40] LABS: Anion Gap 17 mmol/L; BUN/Creatinine Ratio 16.15; Blood Urea Nitrogen 21 mg/dL (9-20); Calcium 8.8 mg/dL (8.4-10.2); Carbon Dioxide 28 mmol/L (22-30); Chloride 94.6 mmol/L (98-107); Glucose 235 mg/dL (75-100); Sodium 135 mmol/L (137-145)
--- NOTE | 2017-01-24 10:27 | Consultation ---
History of Present Illness - Reason for Consult Consult date: 01/24/17 acute renal failure, hyperkalemia Requesting physician: CARLYN RIVERS - History of Present Illness This is a 56yo AAM, with past medical history of Type 2 DM, hypertension, metabolic syndrome, who initially presented to [facility] ER via EMS from home after he patient was found unresponsive. EMS found the patient to have a heart rate of 26 and they also did an Accu-Chek and found the sugar to be greater than 400. They placed him on a external pacemaker with pads. He received atropine 2 , transcutaneous pacing and was converted to transvenous pacing. Pt was also found to have significant hyperkalemia on admission with K of 5.9 along with elevated BUN/Cr at 27/1.9mg/dl. Renal consult requested for management of Hyperkalemia/INDIGO. It was suspected that hyperkalemia contributed to acute bradycardia. Echocardiogram showed low LVEF 15-20%, mild to moderately dilated LV, moderate TR, moderate pulm HTN. patient seen and examined at bedside, is awake, alert, in no acute respiratory distress. pt is deaf and communicates in writing. pt's brother is at bedside, who also translated via sign language. Past History Past Medical History: diabetes, hypertension, other (metabolic sundrome,) Past Surgical History: Other (Right Ankle) Social history: single. denies: smoking, alcohol abuse, prescription drug abuse Family history: CAD, hypertension Medications and Allergies Allergies Allergy/AdvReac Type Severity Reaction Status Date / Time No Known Allergies Allergy Unverified 01/23/17 15:33 Home Medications Medication Instructions Recorded Confirmed Last Taken Type Furosemide [Lasix TAB] 20 mg PO DAILY 01/22/17 01/22/17 Unknown History Nitroglycerin [Nitrostat] 0.4 mg SL PRN PRN 01/22/17 01/22/17 Unknown History Torsemide [Demadex] 1.5 tab PO DAILY 01/22/17 01/22/17 Unknown History Active Meds: Active Medications Albuterol (Proventil) 2.5 mg IH Q3HRT PRN PRN Reason: Shortness Of Breath Clonidine HCl (Catapres) 0.1 mg PO Q6HR PRN PRN Reason: Hypertension Last Admin: 01/23/17 16:32 Dose: 0.1 mg Enoxaparin Sodium (Lovenox) 40 mg SUB-Q QDAY@2200 [facility] Last Admin: 01/23/17 21:30 Dose: 40 mg Furosemide (Lasix) 40 mg IV DAILY@0600 [facility] Last Admin: 01/24/17 05:53 Dose: 40 mg Dopamine HCl/Dextrose (Intropin Drip 800 Mg/D5w 250 Ml) 800 mg in 250 mls @ 4.252 mls/hr IV TITR ONE; 2 MCG/KG/MIN PRN Reason: Protocol Stop: 01/25/17 00:01 Last Titration: 01/22/17 13:40 Dose: 7 mcg/kg/min, 14.88 mls/hr Insulin Human Regular (Novolin R) 0 units SUB-Q ACHS HUI PRN Reason: Protocol Morphine Sulfate (Morphine) 2 mg IV Q3H PRN PRN Reason: Pain, Moderate (4-6) Last Admin: 01/24/17 08:54 Dose: 2 mg Oxycodone/Acetaminophen (Percocet 5/325) 1 tab PO Q4H PRN PRN Reason: Pain, Moderate (4-6) Last Admin: 01/24/17 08:53 Dose: 1 tab Review of Systems All systems: negative Constitutional: fatigue, weakness Cardiovascular: shortness of breath, dyspnea on exertion, paroxysmal nocturnal dyspnea, leg edema Respiratory: shortness of breath, dyspnea on exertion Exam - Vital Signs Vital signs: Vital Signs Pulse Pulse Ox 30 L 100 01/22/17 13:05 01/22/17 13:05 - General Appearance General appearance: well-developed, well-nourished, appears stated age, other ( deaf) EENT: ATNC, PERRL, mucous membranes moist Neck: Present: neck supple Respiratory: Decreased Breath Sounds Heart: regular, S1S2, systolic murmur Gastrointestinal: Present: normal, normoactive bowel sounds Integumentary: no rash, other (trace edema b/l lE ) Neurologic: no focal deficit, alert and oriented x3, strength 5/5, CN 3-12 intact Psychiatric: mood/affect appropriate, cooperative Results - Lab Results 01/24/17 09:00 01/24/17 09:00 Most recent lab results Calcium 8.8 mg/dL (8.4-10.2) 01/24/17 09:00 Magnesium 1.50 mg/dL (1.7-2.3) L 01/23/17 21:00 Laboratory Tests 01/22/17 01/22/17 01/22/17 13:59 17:21 21:00 PT 17.4 H INR 1.35 H D-Dimer 325.55 H VBG pH 7.371 Hemoglobin A1c Calcium Total Bilirubin AST ALT Alkaline Phosphatase Total Protein Albumin Albumin/Globulin Ratio 01/24/17 01/24/17 01/24/17 05:00 09:00 09:00 PT INR D-Dimer VBG pH Hemoglobin A1c 11.8 H Calcium 8.4 8.8 Total Bilirubin 1.60 H AST 18 ALT 16 Alkaline Phosphatase 163 H Total Protein 6.3 Albumin 3.5 L Albumin/Globulin Ratio 1.3 Assessment and Plan - Patient Problems (1) ARF (acute renal failure) Current Visit: Yes Status: Acute Qualifiers: Acute renal failure type: unspecified Qualified Code(s): N17.9 - Acute kidney failure, unspecified Plan to address problem: acute renal failure likely due to acute cardiorenal syndrome in the setting of bradycardia/acute on chronic systolic HF. eGFR improved s/p rate control with TV pace maker/s/p dobutamin. pt remains non-oliguric. Cr improved to 1.3mg/dl. cont supportive care for INDIGO, avoid nephrotoxins, NSAIDs, IV contrast. underlying CKD possible, will check UA, urine lytes/protein/cr ratio will monitor lytes/renal parameters and make further recommendations. D/w ICU team, pt and family at bedside, total CCM time spent 45min (2) Bradycardia with 31-40 beats per minute Current Visit: Yes Status: Acute Plan to address problem: rate controlled s/p TVP placement, follow cardiology recommendations. K improved with medical management, will target K to 4-5 (3) Cardiogenic shock Current Visit: Yes Status: Acute Plan to address problem: pt weaned off dobutamine gtt. (4) Acute systolic heart failure Current Visit: Yes Status: Acute Plan to address problem: cont IV diuresis with lasix 40mg bid, hold RUFUS-I/ARB due to hyperkalemia. Rate control as per cardiology (5) Hyperkalemia Current Visit: Yes Status: Acute Plan to address problem: due to decreased distal tubular Na delivery in the setting of acute systolic HF. underlying type 4RTA, given h/o uncontrolled Type 2 DM, may contribute to hyperkalemia. K improved with medical treatment wtih D50/IV insulin, kayexalate. Cont IV Lasix w/ its kaliuretic effect, hold RUFUS-I/ARB, cont 2g K renal diet. Will check TTKG. (6) Type 2 diabetes mellitus with diabetic chronic kidney disease Current Visit: Yes Status: Acute Qualifiers: Diabetes mellitus longterm insulin use: D Chronic kidney disease stage: C Plan to address problem: glucose control as per primary attending.
[2017-01-24 10:28] LABS: Basophils % (Manual) 0 % (0.0-1.8); Blastocytes % (Manual) 0 %; Eosinophils % (Manual) 0 % (0.0-4.3)
[2017-01-24 10:29] LABS: Anisocytosis Few; Diff Status Complete; Poikilocytosis Few
[2017-01-24 11:15] LABS: Magnesium 1.5 mg/dL (1.7-2.3); Phosphorous 2.9 mg/dL (2.5-4.5)
[2017-01-24] MEDS ORDERED: MAGNESIUM SULFATE IV ONE (11:27)
--- NOTE | 2017-01-24 11:31 | Progress Note ---
Assessment and Plan This is a 56yo AAM, with past medical history of Type 2 DM, hypertension, metabolic syndrome, who initially presented [facility] via EMS from home after he patient was found unresponsive. EMS found the patient to have a heart rate of 26 and they also did an Accu-Chek and found the sugar to be greater than 400. They placed him on a external pacemaker with pads. He received atropine 2 , transcutaneous pacing and was converted to transvenous pacing. Pt was also found to have significant hyperkalemia on admission with K of 5.9 along with elevated BUN/Cr at 27/1.9mg/dl. a As per patient he fell on his right shoulder and woke up shoulder pain. Bradycardia leading to cardiogenic syncope He received atropine 2, transcutaneous pacing and was converted to transvenous pacing Continue transvenous pacing, rate has been reduced by cardiology It is suspected that it was most likely due to hyperkalemia leading to third degree heart block ACS ruled out, NSTEMI ruled out, Trop max was 0.04 2-D echo showed EF of 15-20% case also discussed with Fito, the agreed with him staying in this hospital to finish out his care Hyperkalemia s/p Kayexalate, now resolved, continue to monitor levels daily avoid any K sparing diuretic, RUFUS or ARB Cardiogenic shock Has only weaned off dopamine drip Acute on chronic systolic CHF with pulmonary venous congestion IV diuresis as tolerated, optimize meds, EF 15-20% Acute renal failure/Vasomotor nephropathy creat trended down to 1.3 today, donald in place resolving with IVF, nephrology consult placed Acute respiratory failure with Hypoxia Likely due to severe bradycardia leading cardiogenic syncope continue oxygen supplement Toxic Metabolic Encephalopathy improving, due to high K and Bradycardia, now resolved R shoulder pain/ sp fall Xray unremarkable Hyponatremia syndrome IVF replacement, Hearing impaired/Deaf - supportive care DM type 2 -will adjust insulin as needed DVT prophylaxis lovenox, The high probability of a clinically significant, sudden or life threatening deterioration of the [Cardiac, pulmonary, renal] system(s) required my full and direct attention, intervention and personal management. The aggregate critical care time was [65] minutes. This time is in addition to time spent performing reported procedures but includes the following: [x] Data Review and interpretation [x] Patient assessment and monitoring of vital signs [x] Documentation [x] Medication orders and management Subjective Date of service: 01/24/17 Interval history: Patient seen and examined. Medical records and medication list reviewed. No acute event overnight noted by the RN. Patient denies any chest pain or difficulty breathing. Patient is tolerating diet. Discussed plan of care at bedside with patient. Objective - Exam Narrative Exam: General: Patient appears well in no distress HEENT: MMM, EOMI cardiac: S1-S2 heard lungs: clear to auscultation, abdomen: soft, nontender, nondistended bowel sounds positive Right shoulder tenderness extremities: no edema clubbing or cyanosis Skin: no rash or lesion Neuro: Patient is deaf, therefore communicates by writing, Psych: appropriate behavior and mood, cognition intact - Constitutional Vitals: Vital Signs - 12hr 01/24/17 01/24/17 01/24/17 00:00 01:00 02:00 Temperature Pulse Rate 58 L 63 56 L Respiratory 17 17 17 Rate Respiratory Rate [Right Shoulder] Blood Pressure 130/74 127/73 121/68 O2 Sat by Pulse 99 98 99 Oximetry 01/24/17 01/24/17 01/24/17 03:00 03:01 04:00 Temperature Pulse Rate 55 L 55 L Respiratory 19 17 17 Rate Respiratory Rate [Right Shoulder] Blood Pressure 129/77 119/59 O2 Sat by Pulse 100 100 100 Oximetry 01/24/17 01/24/17 01/24/17 05:00 05:20 06:00 Temperature Pulse Rate 55 L 56 L 56 L Respiratory 17 16 19 Rate Respiratory Rate [Right Shoulder] Blood Pressure 117/61 117/61 140/89 O2 Sat by Pulse 100 100 100 Oximetry 01/24/17 01/24/17 01/24/17 07:00 07:09 08:00 Temperature Pulse Rate 58 L 62 Respiratory 19 21 Rate Respiratory Rate [Right Shoulder] Blood Pressure 122/71 O2 Sat by Pulse 100 100 99 Oximetry 01/24/17 01/24/17 01/24/17 08:53 09:01 09:02 Temperature 99.1 F Pulse Rate 61 Respiratory 12 17 Rate Respiratory Rate [Right Shoulder] Blood Pressure 123/70 O2 Sat by Pulse 99 Oximetry 01/24/17 01/24/17 01/24/17 10:00 10:01 11:00 Temperature Pulse Rate 57 L 59 L 60 Respiratory 15 18 Rate Respiratory 10 L Rate [Right Shoulder] Blood Pressure 123/74 122/78 O2 Sat by Pulse 100 100 Oximetry - Labs CBC & Chem 7: 01/24/17 09:00 01/24/17 09:00 Labs: Abnormal lab results 01/23/17 01/23/17 01/23/17 Range/Units 11:40 16:02 18:12 Hgb (11.8-15.2) gm/dl MCH (28-32) pg RDW (13.2-15.2) % Plt Count (140-440) K/mm3 Monocytes % (Manual) (0.0-7.3) % Monocytes # (Manual) (0.0-0.8) K/mm3 Sodium (137-145) mmol/L Potassium (3.6-5.0) mmol/L Chloride (98-107) mmol/L BUN (9-20) mg/dL Glucose (75-100) mg/dL POC Glucose 179 H 187 H 240 H (70-105) Hemoglobin A1c (4-6) % Magnesium (1.7-2.3) mg/dL Total Bilirubin (0.1-1.2) mg/dL Alkaline Phosphatase (35-129) units/L Albumin (3.9-5) g/dL 01/23/17 01/23/17 01/24/17 Range/Units 21:00 23:51 05:00 Hgb (11.8-15.2) gm/dl MCH (28-32) pg RDW (13.2-15.2) % Plt Count (140-440) K/mm3 Monocytes % (Manual) (0.0-7.3) % Monocytes # (Manual) (0.0-0.8) K/mm3 Sodium 135 L (137-145) mmol/L Potassium 5.8 H D 5.2 H (3.6-5.0) mmol/L Chloride (98-107) mmol/L BUN 23 H 22 H (9-20) mg/dL Glucose 296 H 228 H (75-100) mg/dL POC Glucose 232 H (70-105) Hemoglobin A1c (4-6) % Magnesium 1.50 L (1.7-2.3) mg/dL Total Bilirubin 1.60 H 1.60 H (0.1-1.2) mg/dL Alkaline Phosphatase 179 H 163 H (35-129) units/L Albumin 3.7 L 3.5 L (3.9-5) g/dL 01/24/17 01/24/17 01/24/17 Range/Units 09:00 09:00 09:00 Hgb 11.7 L (11.8-15.2) gm/dl MCH 27 L (28-32) pg RDW 15.8 H (13.2-15.2) % Plt Count 126 L (140-440) K/mm3 Monocytes % (Manual) 15.0 H (0.0-7.3) % Monocytes # (Manual) 1.2 H (0.0-0.8) K/mm3 Sodium 135 L (137-145) mmol/L Potassium (3.6-5.0) mmol/L Chloride 94.6 L (98-107) mmol/L BUN 21 H (9-20) mg/dL Glucose 235 H (75-100) mg/dL POC Glucose (70-105) Hemoglobin A1c 11.8 H (4-6) % Magnesium (1.7-2.3) mg/dL Total Bilirubin (0.1-1.2) mg/dL Alkaline Phosphatase (35-129) units/L Albumin (3.9-5) g/dL 01/24/17 Range/Units Unknown Hgb (11.8-15.2) gm/dl MCH (28-32) pg RDW (13.2-15.2) % Plt Count (140-440) K/mm3 Monocytes % (Manual) (0.0-7.3) % Monocytes # (Manual) (0.0-0.8) K/mm3 Sodium (137-145) mmol/L Potassium (3.6-5.0) mmol/L Chloride (98-107) mmol/L BUN (9-20) mg/dL Glucose (75-100) mg/dL POC Glucose (70-105) Hemoglobin A1c (4-6) % Magnesium 1.50 L (1.7-2.3) mg/dL Total Bilirubin (0.1-1.2) mg/dL Alkaline Phosphatase (35-129) units/L Albumin (3.9-5) g/dL
[2017-01-24 11:44] LABS: Bacteria,Urine 1+ /HPF (Negative); Bilirubin,Urine NEG (Negative); Blood,Urine MOD (Negative); Ketones,Urine NEG (Negative); Leukocyte Esterase,Urine MOD (Negative); Mucus,Urine FEW /HPF; Nitrite,Urine NEG (Negative); Protein,Urine <15 mg/dL mg/dL (Negative); Urobilinogen,Urine < 2.0 mg/dL (<2.0)
--- NOTE | 2017-01-24 12:01 | Progress Note ---
Assessment and Plan Acute bradycardia with complete heart block episode.Controlled.Adequate rhythm at the bedside Temporary pacemaker placement. 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 Continue oxygen support as needed Pacemaker reassessment by cardiology and recommend femoral access to be removed on next 72 hours if possible. Reassess and possible further respiratory history for the older related events. Continue monitor for sleep apnea while in the unit in the meantime. Discussed with nursing staff. Critical care time was 35 minutes of [id number] evaluation and coordination of care Subjective Date of service: 01/24/17 Interval history: No chest complains.Family at bedside Objective Vital Signs - 12hr 01/24/17 01/24/17 01/24/17 00:00 01:00 02:00 Temperature Pulse Rate 58 L 63 56 L Respiratory 17 17 17 Rate Respiratory Rate [Right Shoulder] Blood Pressure 130/74 127/73 121/68 O2 Sat by Pulse 99 98 99 Oximetry 01/24/17 01/24/17 01/24/17 03:00 03:01 04:00 Temperature Pulse Rate 55 L 55 L Respiratory 19 17 17 Rate Respiratory Rate [Right Shoulder] Blood Pressure 129/77 119/59 O2 Sat by Pulse 100 100 100 Oximetry 01/24/17 01/24/17 01/24/17 05:00 05:20 06:00 Temperature Pulse Rate 55 L 56 L 56 L Respiratory 17 16 19 Rate Respiratory Rate [Right Shoulder] Blood Pressure 117/61 117/61 140/89 O2 Sat by Pulse 100 100 100 Oximetry 01/24/17 01/24/17 01/24/17 07:00 07:09 08:00 Temperature Pulse Rate 58 L 62 Respiratory 19 21 Rate Respiratory Rate [Right Shoulder] Blood Pressure 122/71 O2 Sat by Pulse 100 100 99 Oximetry 01/24/17 01/24/17 01/24/17 08:53 09:01 09:02 Temperature 99.1 F Pulse Rate 61 Respiratory 12 17 Rate Respiratory Rate [Right Shoulder] Blood Pressure 123/70 O2 Sat by Pulse 99 Oximetry 01/24/17 01/24/17 01/24/17 10:00 10:01 11:00 Temperature Pulse Rate 57 L 59 L 60 Respiratory 15 18 Rate Respiratory 10 L Rate [Right Shoulder] Blood Pressure 123/74 122/78 O2 Sat by Pulse 100 100 Oximetry Constitutional: no acute distress, other (morbidly obese) Eyes: non-icteric ENT: oropharynx moist Neck: supple, no lymphadenopathy, no JVD (difficult to evaluate due to body habitus) Effort: normal Ascultation: Bilateral: clear, diminished breath sounds Cardiovascular: irregular rhythm Gastrointestinal: normoactive bowel sounds, non-distended Integumentary: normal CBC and BMP: 01/24/17 09:00 01/24/17 09:00 ABG, PT/INR, D-dimer: PT/INR, D-dimer PT 17.4 Sec. (12.2-14.9) H 01/22/17 21:00 INR 1.35 (0.87-1.13) H 01/22/17 21:00 D-Dimer 325.55 ng/mlDDU (0-234) H 01/22/17 17:21 Abnormal lab findings: Abnormal Labs 01/22/17 01/22/17 01/22/17 14:25 14:53 17:21 Hgb MCH RDW Plt Count [place] % (Auto) Monocytes % (Manual) Monocytes # (Manual) PT INR D-Dimer Sodium Potassium 5.9 H Chloride BUN 27 H Creatinine 1.9 H Glucose 334 H POC Glucose Hemoglobin A1c Calcium 8.0 L Magnesium Total Bilirubin Direct Bilirubin 0.5 H Alkaline Phosphatase 195 H Troponin T 0.041 H Albumin Urine WBC (Auto) 01/22/17 01/22/17 01/22/17 17:21 17:45 21:00 Hgb MCH RDW Plt Count [place] % (Auto) Monocytes % (Manual) Monocytes # (Manual) PT INR D-Dimer 325.55 H Sodium Potassium Chloride BUN Creatinine Glucose POC Glucose 270 H Hemoglobin A1c Calcium Magnesium Total Bilirubin Direct Bilirubin Alkaline Phosphatase Troponin T 0.039 H Albumin Urine WBC (Auto) 01/22/17 01/22/17 01/23/17 21:00 21:00 06:45 Hgb 11.7 L MCH 27 L RDW 16.2 H Plt Count 122 L [place] % (Auto) 10.4 H Monocytes % (Manual) Monocytes # (Manual) PT 17.4 H INR 1.35 H D-Dimer Sodium Potassium 5.4 H Chloride BUN 25 H Creatinine 1.6 H Glucose 173 H POC Glucose Hemoglobin A1c Calcium 7.4 L Magnesium Total Bilirubin Direct Bilirubin Alkaline Phosphatase Troponin T Albumin Urine WBC (Auto) 01/23/17 01/23/17 01/23/17 06:45 11:40 16:02 Hgb MCH RDW Plt Count [place] % (Auto) Monocytes % (Manual) Monocytes # (Manual) PT INR D-Dimer Sodium Potassium Chloride BUN 24 H Creatinine 1.6 H Glucose 153 H POC Glucose 179 H 187 H Hemoglobin A1c Calcium Magnesium Total Bilirubin Direct Bilirubin Alkaline Phosphatase 181 H Troponin T Albumin 3.8 L Urine WBC (Auto) 01/23/17 01/23/17 01/23/17 18:12 21:00 23:51 Hgb MCH RDW Plt Count [place] % (Auto) Monocytes % (Manual) Monocytes # (Manual) PT INR D-Dimer Sodium Potassium 5.8 H D Chloride BUN 23 H Creatinine Glucose 296 H POC Glucose 240 H 232 H Hemoglobin A1c Calcium Magnesium 1.50 L Total Bilirubin 1.60 H Direct Bilirubin Alkaline Phosphatase 179 H Troponin T Albumin 3.7 L Urine WBC (Auto) 01/24/17 01/24/17 01/24/17 05:00 09:00 09:00 Hgb 11.7 L MCH 27 L RDW 15.8 H Plt Count 126 L [place] % (Auto) Monocytes % (Manual) 15.0 H Monocytes # (Manual) 1.2 H PT INR D-Dimer Sodium 135 L 135 L Potassium 5.2 H Chloride 94.6 L BUN 22 H 21 H Creatinine Glucose 228 H 235 H POC Glucose Hemoglobin A1c Calcium Magnesium Total Bilirubin 1.60 H Direct Bilirubin Alkaline Phosphatase 163 H Troponin T Albumin 3.5 L Urine WBC (Auto) 01/24/17 01/24/17 01/24/17 09:00 11:10 Unknown Hgb MCH RDW Plt Count [place] % (Auto) Monocytes % (Manual) Monocytes # (Manual) PT INR D-Dimer Sodium Potassium Chloride BUN Creatinine Glucose POC Glucose Hemoglobin A1c 11.8 H Calcium Magnesium 1.50 L Total Bilirubin Direct Bilirubin Alkaline Phosphatase Troponin T Albumin Urine WBC (Auto) 19.0 H
[2017-01-24] MEDS ORDERED: MAGNESIUM SULFATE 1 GM in NACL 0.9% 50 ML IV ONE (12:30)
[2017-01-24 12:52] LABS: Potassium, Urine 27.63 mEq/L
[2017-01-24] MEDS ORDERED: LEVEMIR SUB-Q SCH (13:00)
[2017-01-24] MEDS ORDERED: MAGNESIUM SULFATE 4GM/100ML 4 GM/100 ML BAG IV ONE (13:00)
--- NOTE | 2017-01-24 16:25 | Progress Note ---
Assessment and Plan Junctional bradycardia secondary to hyperkalemia s/p temporary transvenous pacemaker normal TSH Hyperkalemia Acute renal failure Deafness Diabetes Hypertension Obese Cardiomyopathy, uncertain duration Echocardiogram reveals a severe cardiomyopathy with left ventricle ejection fraction 20%. Plan: Patient appears to have a stable underlying sinus rhythm without further need for backup pacing. Temporary pacemaker was removed at bedside. Subjective Date of service: 01/24/17 Interval history: Patient is resting in bed comfortably. Sinus rhythm on telemetry. Objective Vital Signs Temp Pulse Pulse Resp Resp BP Pulse Ox 01/24/17 16:01 63 19 146/86 98 01/24/17 15:00 61 15 139/91 99 01/24/17 14:00 62 19 129/87 100 01/24/17 13:00 66 19 126/90 100 01/24/17 12:01 62 17 120/87 99 01/24/17 12:00 98.0 F 100 01/24/17 11:00 60 18 122/78 100 01/24/17 10:01 59 L 15 123/74 100 01/24/17 10:00 57 L 10 L 99 01/24/17 09:02 99.1 F 01/24/17 09:01 61 17 123/70 99 01/24/17 08:53 12 01/24/17 08:00 62 21 122/71 99 01/24/17 07:09 58 L 19 100 01/24/17 07:00 100 01/24/17 06:00 56 L 19 140/89 100 01/24/17 05:20 56 L 16 117/61 100 01/24/17 05:00 55 L 17 117/61 100 01/24/17 04:00 55 L 17 119/59 100 01/24/17 03:01 55 L 17 129/77 100 01/24/17 03:00 19 100 01/24/17 02:00 56 L 17 121/68 99 01/24/17 01:00 63 17 127/73 98 01/24/17 00:00 58 L 17 130/74 99 01/23/17 23:19 59 L 21 156/91 100 01/23/17 23:00 61 60 23 156/91 100 01/23/17 22:00 59 L 24 151/91 100 01/23/17 21:36 98.4 F 01/23/17 21:29 60 26 H 151/90 100 01/23/17 21:00 56 L 24 151/90 99 01/23/17 20:12 100 01/23/17 20:00 58 L 21 137/92 100 01/23/17 19:45 100 01/23/17 19:01 66 21 145/86 100 01/23/17 18:01 66 22 153/76 100 01/23/17 17:33 25 H 01/23/17 17:01 68 16 152/104 99 01/23/17 16:33 17 01/23/17 16:32 68 13 158/96 - Physical Examination General: No Apparent Distress HEENT: Positive: PERRL Cardiac: Positive: Reg Rate and Rhythm - Labs and Meds Cardiac Enzymes 01/23/17 01/24/17 Range/Units 21:00 05:00 AST 20 18 (5-40) units/L CBC 01/24/17 Range/Units 09:00 WBC 7.7 (4.5-11.0) K/mm3 RBC 4.28 (3.65-5.03) M/mm3 Hgb 11.7 L (11.8-15.2) gm/dl Hct 35.8 (35.5-45.6) % Plt Count 126 L (140-440) K/mm3 Comprehensive Metabolic Panel 01/23/17 01/24/17 01/24/17 Range/Units 21:00 05:00 09:00 Sodium 137 135 L 135 L (137-145) mmol/L Potassium 5.8 H D 5.2 H 5.0 (3.6-5.0) mmol/L Chloride 99.8 98.0 94.6 L (98-107) mmol/L Carbon Dioxide 25 26 28 (22-30) mmol/L BUN 23 H 22 H 21 H (9-20) mg/dL Creatinine 1.3 1.3 1.3 (0.8-1.5) mg/dL Glucose 296 H 228 H 235 H (75-100) mg/dL Calcium 8.5 8.4 8.8 (8.4-10.2) mg/dL AST 20 18 (5-40) units/L ALT 18 16 (7-56) units/L Alkaline Phosphatase 179 H 163 H (35-129) units/L Total Protein 6.7 6.3 (6.3-8.2) g/dL Albumin 3.7 L 3.5 L (3.9-5) g/dL
[2017-01-24] MEDS: LOVENOX SUB-Q SCH (21:57)
[2017-01-25] MEDS: LASIX IV SCH (05:04)
[2017-01-25 05:13] LABS: Anion Gap 16 mmol/L; BUN/Creatinine Ratio 13.33; Blood Urea Nitrogen 16 mg/dL (9-20); Carbon Dioxide 29 mmol/L (22-30); Chloride 94.1 mmol/L (98-107); Glucose 275 mg/dL (75-100); Potassium 4.2 mmol/L (3.6-5.0); Sodium 135 mmol/L (137-145)
--- NOTE | 2017-01-25 08:42 | Progress Note ---
Assessment and Plan Acute bradycardia with complete heart block episode.Controlled.Adequate rhythm at the bedside Temporary pacemaker placement. Removed. No new events overnight. Cardiomyopathy,HFdiminished EF Morbid obesity CAD Will reevaluate for associated conditions including ASPEN, OPD Recommendations Follow up cardiology recommendations. Recommend sleep study after the patient discharged from the hospital Ambulate and check oximetry prior to discharge Will sign off on the patient's transfer outside unit. Feel free to reconsult needed. Critical care time was 31 minutes of [id number] evaluation and coordination of care Subjective Date of service: 01/25/17 Principal diagnosis: Junctional bardycardia,hyperkalemia,ARF,deaf Interval history: No complaints this morning Objective Vital Signs - 12hr 01/24/17 01/24/17 01/24/17 21:01 22:00 22:20 Temperature Pulse Rate 71 69 68 Respiratory 13 21 16 Rate Blood Pressure 160/89 162/88 O2 Sat by Pulse 95 98 100 Oximetry 01/24/17 01/24/17 01/24/17 22:55 23:00 23:13 Temperature Pulse Rate 73 60 59 L Respiratory 16 20 21 Rate Blood Pressure 162/88 151/79 151/79 O2 Sat by Pulse 100 100 99 Oximetry 01/25/17 01/25/17 01/25/17 00:00 00:30 01:00 Temperature 99.0 F Pulse Rate 59 L 58 L 57 L Respiratory 19 16 Rate Blood Pressure 145/83 138/85 O2 Sat by Pulse 100 100 Oximetry 01/25/17 01/25/17 01/25/17 02:00 03:01 04:00 Temperature 98.8 F Pulse Rate 59 L 58 L Respiratory 20 21 Rate Blood Pressure 148/96 151/88 O2 Sat by Pulse 99 97 Oximetry 01/25/17 01/25/17 01/25/17 04:01 05:00 06:00 Temperature Pulse Rate 62 59 L 61 Respiratory 19 21 17 Rate Blood Pressure 151/96 162/93 141/81 O2 Sat by Pulse 96 92 91 Oximetry 01/25/17 08:00 Temperature 98.3 F Pulse Rate Respiratory Rate Blood Pressure O2 Sat by Pulse Oximetry Constitutional: no acute distress, other (morbidly obese) Eyes: non-icteric ENT: oropharynx moist Neck: supple, no lymphadenopathy, no JVD (difficult to evaluate due to body habitus) Effort: normal Ascultation: Bilateral: clear, diminished breath sounds Cardiovascular: irregular rhythm Gastrointestinal: normoactive bowel sounds, non-distended Integumentary: normal CBC and BMP: 01/24/17 09:00 01/25/17 Unknown ABG, PT/INR, D-dimer: PT/INR, D-dimer PT 17.4 Sec. (12.2-14.9) H 01/22/17 21:00 INR 1.35 (0.87-1.13) H 01/22/17 21:00 D-Dimer 325.55 ng/mlDDU (0-234) H 01/22/17 17:21 Abnormal lab findings: Abnormal Labs 01/22/17 01/22/17 01/22/17 14:25 14:53 17:21 Hgb MCH RDW Plt Count [place] % (Auto) Monocytes % (Manual) Monocytes # (Manual) PT INR D-Dimer Sodium Potassium 5.9 H Chloride BUN 27 H Creatinine 1.9 H Glucose 334 H POC Glucose Hemoglobin A1c Calcium 8.0 L Magnesium Total Bilirubin Direct Bilirubin 0.5 H Alkaline Phosphatase 195 H Troponin T 0.041 H Albumin Urine WBC (Auto) Urine Creatinine 01/22/17 01/22/17 01/22/17 17:21 17:45 21:00 Hgb MCH RDW Plt Count [place] % (Auto) Monocytes % (Manual) Monocytes # (Manual) PT INR D-Dimer 325.55 H Sodium Potassium Chloride BUN Creatinine Glucose POC Glucose 270 H Hemoglobin A1c Calcium Magnesium Total Bilirubin Direct Bilirubin Alkaline Phosphatase Troponin T 0.039 H Albumin Urine WBC (Auto) Urine Creatinine 01/22/17 01/22/17 01/23/17 21:00 21:00 06:45 Hgb 11.7 L MCH 27 L RDW 16.2 H Plt Count 122 L [place] % (Auto) 10.4 H Monocytes % (Manual) Monocytes # (Manual) PT 17.4 H INR 1.35 H D-Dimer Sodium Potassium 5.4 H Chloride BUN 25 H Creatinine 1.6 H Glucose 173 H POC Glucose Hemoglobin A1c Calcium 7.4 L Magnesium Total Bilirubin Direct Bilirubin Alkaline Phosphatase Troponin T Albumin Urine WBC (Auto) Urine Creatinine 01/23/17 01/23/17 01/23/17 06:45 11:40 16:02 Hgb MCH RDW Plt Count [place] % (Auto) Monocytes % (Manual) Monocytes # (Manual) PT INR D-Dimer Sodium Potassium Chloride BUN 24 H Creatinine 1.6 H Glucose 153 H POC Glucose 179 H 187 H Hemoglobin A1c Calcium Magnesium Total Bilirubin Direct Bilirubin Alkaline Phosphatase 181 H Troponin T Albumin 3.8 L Urine WBC (Auto) Urine Creatinine 01/23/17 01/23/17 01/23/17 18:12 21:00 23:51 Hgb MCH RDW Plt Count [place] % (Auto) Monocytes % (Manual) Monocytes # (Manual) PT INR D-Dimer Sodium Potassium 5.8 H D Chloride BUN 23 H Creatinine Glucose 296 H POC Glucose 240 H 232 H Hemoglobin A1c Calcium Magnesium 1.50 L Total Bilirubin 1.60 H Direct Bilirubin Alkaline Phosphatase 179 H Troponin T Albumin 3.7 L Urine WBC (Auto) Urine Creatinine 01/24/17 01/24/17 01/24/17 05:00 08:06 09:00 Hgb 11.7 L MCH 27 L RDW 15.8 H Plt Count 126 L [place] % (Auto) Monocytes % (Manual) 15.0 H Monocytes # (Manual) 1.2 H PT INR D-Dimer Sodium 135 L Potassium 5.2 H Chloride BUN 22 H Creatinine Glucose 228 H POC Glucose 222 H Hemoglobin A1c Calcium Magnesium Total Bilirubin 1.60 H Direct Bilirubin Alkaline Phosphatase 163 H Troponin T Albumin 3.5 L Urine WBC (Auto) Urine Creatinine 01/24/17 01/24/17 01/24/17 09:00 09:00 11:10 Hgb MCH RDW Plt Count [place] % (Auto) Monocytes % (Manual) Monocytes # (Manual) PT INR D-Dimer Sodium 135 L Potassium [place] 94.6 L BUN 21 H Creatinine Glucose 235 H POC Glucose Hemoglobin A1c 11.8 H Calcium Magnesium Total Bilirubin Direct Bilirubin Alkaline Phosphatase Troponin T Albumin Urine WBC (Auto) Urine Creatinine 54.1 H 01/24/17 01/24/17 01/24/17 11:10 12:25 16:34 Hgb MCH RDW Plt Count [place] % (Auto) Monocytes % (Manual) Monocytes # (Manual) PT INR D-Dimer Sodium Potassium Chloride BUN Creatinine Glucose POC Glucose 241 H 296 H Hemoglobin A1c Calcium Magnesium Total Bilirubin Direct Bilirubin Alkaline Phosphatase Troponin T Albumin Urine WBC (Auto) 19.0 H Urine Creatinine 01/24/17 01/24/17 01/25/17 21:20 Unknown 08:00 Hgb MCH RDW Plt Count [place] % (Auto) Monocytes % (Manual) Monocytes # (Manual) PT INR D-Dimer Sodium Potassium Chloride BUN Creatinine Glucose POC Glucose 299 H 250 H Hemoglobin A1c Calcium Magnesium 1.50 L Total Bilirubin Direct Bilirubin Alkaline Phosphatase Troponin T Albumin Urine WBC (Auto) Urine Creatinine 01/25/17 Unknown Hgb MCH RDW Plt Count [place] % (Auto) Monocytes % (Manual) Monocytes # (Manual) PT INR D-Dimer Sodium 135 L Potassium [place] 94.1 L BUN Creatinine Glucose 275 H POC Glucose Hemoglobin A1c Calcium Magnesium Total Bilirubin Direct Bilirubin Alkaline Phosphatase Troponin T Albumin Urine WBC (Auto) Urine Creatinine
[2017-01-25] MEDS ORDERED: LEVEMIR SUB-Q SCH (10:00)
--- NOTE | 2017-01-25 10:14 | Progress Note ---
Assessment and Plan - Patient Problems (1) ARF (acute renal failure) Current Visit: Yes Status: Acute Qualifiers: Acute renal failure type: unspecified Qualified Code(s): N17.9 - Acute kidney failure, unspecified Plan to address problem: acute renal failure likely due to acute cardiorenal syndrome in the setting of bradycardia/acute on chronic systolic HF. Renal function improved with last Cr improved to 1.3mg/dl. will recheck BMP. urine protein/cr ratio only 111mg/g cont supportive care for INDIGO, avoid nephrotoxins, NSAIDs, IV contrast. will monitor lytes/renal parameters and make further recommendations. (2) Hyperkalemia Current Visit: Yes Status: Acute Plan to address problem: due to decreased distal tubular Na delivery in the setting of acute systolic HF. TTKG is <3, underlying type 4RTA, may contribute to hyperkalemia. K improved with medical treatment wtih D50/IV insulin, kayexalate. Cont IV Lasix w / its kaliuretic effect, hold RUFUS-I/ARB, cont 2g K renal diet. If hyperkalemia persists will start veltassa. (3) Bradycardia with 31-40 beats per minute Current Visit: Yes Status: Acute Plan to address problem: rate controlled s/p TVP placement, follow cardiology recommendations. K improved with medical management, will target K to 4-5 (4) Acute systolic heart failure Current Visit: Yes Status: Acute Plan to address problem: cont IV diuresis with lasix 40mg bid, hold RUFUS-I/ARB due to hyperkalemia. Rate control as per cardiology (5) Type 2 diabetes mellitus with diabetic chronic kidney disease Current Visit: Yes Status: Acute Qualifiers: Diabetes mellitus senior living insulin use: D Chronic kidney disease stage: C Plan to address problem: glucose control as per primary attending. Subjective Date of service: 01/25/17 Principal diagnosis: Junctional bardycardia,hyperkalemia,ARF,deaf Interval history: Pt awake, alert, in NAD. communicating in writing Objective - Vital Signs Vital signs: Vital Signs - 12hr 01/24/17 01/24/17 01/24/17 22:20 22:55 23:00 Temperature Pulse Rate 68 73 60 Respiratory 16 16 20 Rate Blood Pressure 162/88 151/79 O2 Sat by Pulse 100 100 100 Oximetry 01/24/17 01/25/17 01/25/17 23:13 00:00 00:30 Temperature 99.0 F Pulse Rate 59 L 59 L 58 L Respiratory 21 19 Rate Blood Pressure 151/79 145/83 O2 Sat by Pulse 99 100 Oximetry 01/25/17 01/25/17 01/25/17 01:00 02:00 03:01 Temperature Pulse Rate 57 L 59 L 58 L Respiratory 16 20 21 Rate Blood Pressure 138/85 148/96 151/88 O2 Sat by Pulse 100 99 97 Oximetry 01/25/17 01/25/17 01/25/17 04:00 04:01 05:00 Temperature 98.8 F Pulse Rate 62 59 L Respiratory 19 21 Rate Blood Pressure 151/96 162/93 O2 Sat by Pulse 96 92 Oximetry 01/25/17 01/25/17 01/25/17 06:00 07:00 08:00 Temperature 98.3 F Pulse Rate 61 59 L Respiratory 17 18 Rate Blood Pressure 141/81 137/91 O2 Sat by Pulse 91 92 Oximetry 01/25/17 01/25/17 08:01 09:01 Temperature Pulse Rate 62 67 Respiratory 16 16 Rate Blood Pressure 146/82 152/88 O2 Sat by Pulse 99 96 Oximetry - General Appearance General appearance: well-developed, well-nourished, appears stated age EENT: ATNC, PERRL, mucous membranes moist Neck: no JVD Respiratory: Present: Clear to Ascultation Cardiology: regular, S1S2 Gastrointestinal: normal, normoactive bowel sounds Integumentary: no rash, other (no edema ) Neurologic: no focal deficit, alert and oriented x3, strength 5/5, CN 3-12 intact Psychiatric: mood/affect appropriate, cooperative - Lab 01/24/17 09:00 01/25/17 Unknown Most recent lab results Calcium 9.0 mg/dL (8.4-10.2) 01/25/17 Unknown Phosphorus 2.90 mg/dL (2.5-4.5) 01/24/17 Unknown Magnesium 1.50 mg/dL (1.7-2.3) L 01/24/17 Unknown Urine Creatinine 54.1 mg/dL (0.1-20.0) H 01/24/17 11:10 Urine Sodium 112 mEq/L 01/24/17 11:10 Urine Total Protein 6 mg/dL (5-11.8) 01/24/17 11:10
--- NOTE | 2017-01-25 12:45 | Discharge Summary ---
Providers - Providers Date of Admission: 01/22/17 14:21 Date of discharge: 01/25/17 Attending physician: MIGUELINA REGALADO 01/22/17 14:24 Consult to Physician [CONS] Routine Consulting Provider: GINA CASTILLO Reason For Exam: cardiogenic shock Place consult to:: pulmonary Notified:: yes Phone number called:: [phone] Was contact made?: Yes If yes, spoke with:: Christiano 01/22/17 14:35 Consult to Physician [CONS] Routine Consulting Provider: YUAN SAGASTUME Reason For Exam: bradycardia Place consult to:: Dr. Sagastume Notified:: yes Phone number called:: [phone] Was contact made?: Yes If yes, spoke with:: Dr Sagastume Time called:: 15:48 01/23/17 10:21 PICC Line Insertion [Consult to PICC Line RN] [CONS] Stat Reason For Exam: hypotension Type Line:: PICC 01/23/17 10:22 Consult to Physician [CONS] Routine Consulting Provider: STACEY POWELL Reason For Exam: leodan Place consult to:: Answering service @ 511 Notified:: Bozena Lyle@ 514 Phone number called:: [phone] Was contact made?: Yes If yes, spoke with:: Bozena Lyle Time called:: 05:12 Comment:: See orders 01/24/17 11:35 Speech Therapy Evaluation and Treat [CONS] Routine Reason For Exam: posible aspiration Hospitalization Condition: Serious Pertinent studies: Chest CT: b/l pulmonary infiltrates vs edema CXR, Rt shoulder XR Hospital course: This is a 56yo AAM, with past medical history of Type 2 DM, hypertension, metabolic syndrome, who initially presented to [facility] ER via EMS from home after he patient was found unresponsive. EMS found the patient to have a heart rate of 26 and they also did an Accu-Chek and found the sugar to be greater than 400. They placed him on a external pacemaker with pads. He received atropine 2 , transcutaneous pacing and was converted to transvenous pacing. Pt was also found to have significant hyperkalemia on admission with K of 5.9 along with elevated BUN/Cr at 27/1.9mg/dl. As per patient he fell on his right shoulder and woke up with shoulder pain. Discahrge diagnosis and management: 3 degree heart block He received atropine 2, transcutaneous pacing and was converted to transvenous pacing and rate was adjusted by cardiology It is suspected that it was most likely due to hyperkalemia leading to third degree heart block ACS ruled out, NSTEMI ruled out, Trop max was 0.04 2-D echo showed EF of 15-20% case also discussed with Fito, the agreed with him staying in this hospital to finish out his care transvenous pacing was discontinued and his HR remained stable No permanent pacemaker was not indicated at this time Acute respiratory failure with Hypoxia Likely due to severe bradycardia leading cardiogenic syncope continue oxygen supplement Syncope, cardiogenic due to 3 degree heart block Hyperkalemia s/p Kayexalate, now resolved, continue to monitor levels daily avoid any K sparing diuretic, RUFUS or ARB Cardiogenic shock due to 3 degree heart block Has only weaned off dopamine drip Acute on chronic systolic CHF with pulmonary venous congestion Placed IV diuresis as tolerated, optimized meds, EF 15-20% on 2 D echo ischemic work up as outpt Acute renal failure/Vasomotor nephropathy creat trended down to 1.3 today, resolved with IVF, nephrology consult placed Toxic Metabolic Encephalopathy improved, due to high K and Bradycardia, now resolved R shoulder pain/ sp fall Xray was unremarkable Hyponatremia improved with IVF replacement, Hearing impaired/Deaf - supportive care DM type 2 -managed with insulin Disposition: DC-01 TO HOME OR SELFCARE Time spent for discharge: 32 minutes Core Measure Documentation - Palliative Care Palliative Care/ Comfort Measures: Not Applicable - Core Measures Any of the following diagnoses?: none - Heart Failure Discharge Requirements RUFUS/ARB for LVSD if EF <40%: No Reason for no RUFUS/ARB: Hyperkalemia Beta danielle at discharge: No Reason for no beta danielle on DC: Heart block Exam - Physical Exam Narrative exam: General: Patient appears well in no distress HEENT: MMM, EOMI cardiac: S1-S2 heard lungs: clear to auscultation, abdomen: soft, nontender, nondistended bowel sounds positive Right shoulder tenderness extremities: no edema clubbing or cyanosis Skin: no rash or lesion Neuro: Patient is deaf, therefore communicates by writing, Psych: appropriate behavior and mood, cognition intact - Constitutional Vitals: Temp Pulse Resp BP Pulse Ox 98.3 F 67 16 152/88 98 01/25/17 08:00 01/25/17 09:01 01/25/17 09:01 01/25/17 09:01 01/25/17 10:00 Plan Activity: advance as tolerated Weight Bearing Status: Weight Bear as Tolerated Diet: diabetic Special Instructions: restrict fluid intake to (1200ml/day) Additional Instructions: F/u with supervisor 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
[2017-01-25 13:02] VITALS: BP 165/103
--- NOTE | 2017-01-25 13:08 | Progress Note ---
Assessment and Plan Junctional bradycardia secondary to hyperkalemia s/p temporary transvenous pacemaker normal TSH Hyperkalemia Acute renal failure Deafness Diabetes Hypertension Obese Cardiomyopathy, uncertain duration Echocardiogram reveals a severe cardiomyopathy with left ventricle ejection fraction 20%. F/U as an outpatient for further cardiac evaluation. Stable cardiac ndiaye. F/U with Arthur within 1 wk of discharge. Subjective Date of service: 01/25/17 Principal diagnosis: Junctional bardycardia,hyperkalemia,ARF,deaf Interval history: Patient denies chest pain and shortness of breath. Stable sinus rhythm on telemetry. Objective Vital Signs Temp Pulse Resp BP Pulse Ox 01/25/17 12:00 98.1 F 01/25/17 11:00 65 20 165/103 92 01/25/17 10:01 66 18 98/39 92 01/25/17 10:00 98 01/25/17 09:01 67 16 152/88 96 01/25/17 08:01 62 16 146/82 99 01/25/17 08:00 98.3 F 01/25/17 07:00 59 L 18 137/91 92 01/25/17 06:00 61 17 141/81 91 01/25/17 05:00 59 L 21 162/93 92 01/25/17 04:01 62 19 151/96 96 01/25/17 04:00 98.8 F 01/25/17 03:01 58 L 21 151/88 97 01/25/17 02:00 59 L 20 148/96 99 01/25/17 01:00 57 L 16 138/85 100 01/25/17 00:30 58 L 01/25/17 00:00 99.0 F 59 L 19 145/83 100 01/24/17 23:13 59 L 21 151/79 99 01/24/17 23:00 60 20 151/79 100 01/24/17 22:55 73 16 162/88 100 01/24/17 22:20 68 16 100 01/24/17 22:00 69 21 162/88 98 01/24/17 21:01 71 13 160/89 95 01/24/17 20:01 69 18 161/90 94 01/24/17 19:57 99.1 F 01/24/17 19:49 94 01/24/17 19:01 65 19 157/84 93 01/24/17 18:01 72 13 146/103 92 08/22/17 17:01 67 20 154/83 95 01/24/17 16:01 63 19 146/86 98 01/24/17 16:00 99.0 F 92 01/24/17 15:00 61 15 139/91 99 01/24/17 14:00 62 19 129/87 100 - Physical Examination General: No Apparent Distress HEENT: Positive: PERRL Cardiac: Positive: Reg Rate and Rhythm - Labs and Meds Comprehensive Metabolic Panel 01/25/17 Range/Units Unknown Sodium 135 L (137-145) mmol/L Potassium 4.2 (3.6-5.0) mmol/L Chloride 94.1 L (98-107) mmol/L Carbon Dioxide 29 (22-30) mmol/L BUN 16 (9-20) mg/dL Creatinine 1.2 (0.8-1.5) mg/dL Glucose 275 H (75-100) mg/dL Calcium 9.0 (8.4-10.2) mg/dL
== END 2017-01-25 15:41 | disposition home or self-care (01) | DRG 308 ==
LOC: ED 13:02 → CC1 14:21
PROVIDERS: ADMIT Internal Medicine; ATTEND Internal Medicine
PROC: 0BH17EZ Insertion of Endotracheal Airway into Trachea, Via Natural or Artificial Opening (ICD-10-PCS; 2017-01-22)
PROC: 5A1945Z Respiratory Ventilation, 24-96 Consecutive Hours (ICD-10-PCS; 2017-01-22)
PROC: 5A1223Z Performance of Cardiac Pacing, Continuous (ICD-10-PCS; principal; 2017-01-24)
DX: I44.2 Atrioventricular block, complete (principal); R57.0 Cardiogenic shock; J96.01 Acute respiratory failure with hypoxia; G92 Toxic encephalopathy; I50.23 Acute on chronic systolic (congestive) heart failure; N17.0 Acute kidney failure with tubular necrosis; E87.1 Hypo-osmolality and hyponatremia; I42.9 Cardiomyopathy, unspecified; R00.1 Bradycardia, unspecified; I25.10 Atherosclerotic heart disease of native coronary artery without angina pectoris; E11.9 Type 2 diabetes mellitus without complications; E87.5 Hyperkalemia; E66.9 Obesity, unspecified; H91.90 Unspecified hearing loss, unspecified ear; Z91.19 Patient's noncompliance with other medical treatment and regimen; Z82.49 Family history of ischemic heart disease and other diseases of the circulatory system; Z68.33 Body mass index [BMI] 33.0-33.9, adult
CPT/HCPCS: 33210; 36415; 71010; 71250; 80048; 80053; 80061; 80074; 81001; 82550; 82570; 82805; 82962; 83036; 83735; 83935; 84100; 84133; 84156; 84300; 84443; 84484; 85007; 85025; 85379; 85610; 85730; 93005; 93010; 93306; 94660; 94760; 99291; C1894; J0461; J1644; J1650; J1815; J1818; J1940; J2270; J3475

== ENCOUNTER 2017-02-16 19:20 | Inpatient (IN) | payer OTHER ==
[2017-02-16 20:23] LABS: Basophils % (Auto) 0.3 % (0.0-1.8); Hematocrit 36.5 % (35.5-45.6); Hemoglobin 11.7 gm/dl (11.8-15.2); Mean Corpuscular HGB Conc 32 % (32-34); Mean Corpuscular Hemoglobin 27 pg (28-32); Mean Corpuscular Volume 83 fl (84-94); Platelet Count 102 K/mm3 (140-440); Red Blood Count 4.41 M/mm3 (3.65-5.03); Red Cell Distribution Width 14.8 % (13.2-15.2); White Blood Count 13.5 K/mm3 (4.5-11.0)
[2017-02-16 20:35] LABS: INR 1.47 (0.87-1.13)
[2017-02-16 20:36] LABS: Partial Thromboplastin Time 37.8 Sec. (24.2-36.6)
[2017-02-16 20:44] LABS: BUN/Creatinine Ratio 18.33; Calcium 8.9 mg/dL (8.4-10.2); Chloride 87.4 mmol/L (98-107); Potassium 4.9 mmol/L (3.6-5.0)
[2017-02-16] MEDS ORDERED: ZOFRAN IV ONE (21:07)
[2017-02-16] MEDS ORDERED: MORPHINE IV ONE (21:07)
[2017-02-16] MEDS ORDERED: TESSALON PERLES PO ONE (21:07)
[2017-02-16] MEDS ORDERED: ASPIRIN PO ONE (21:09)
--- NOTE | 2017-02-16 21:13 | Emergency Department Report ---
ED Shortness of Breath HPI - General Chief Complaint: Dyspnea/Respdistress Stated Complaint: CHEST PAIN Time Seen by Provider: 02/16/17 20:25 Source: patient, EMS, old records reviewed (recent admission for hyperglycemia, heart block associated with hyperkalemia, and ams) Mode of arrival: Stretcher Limitations: Language Barrier - History of Present Illness Initial Comments: 56-year-old male the past medical history CHF, and some dependent diabetes, and hypertension presents to the hospital with complaints of shortness of breath 3 days. Positive dyspnea and exertion, orthopnea, PND reported. Decreased appetite without nausea, vomiting, or abdominal pain. Frequent cough that is productive of white and occasionally blood-tinged sputum. Positive headache associated with coughing. Patient denies chest pain, edema, or calf pain. Patient is deaf and his daughter is at the bedside and assisting with signing and communication. - Related Data Home Medications Medication Instructions Recorded Confirmed Last Taken Furosemide [Lasix TAB] 20 mg PO DAILY 01/22/17 01/22/17 Unknown Nitroglycerin [Nitrostat] 0.4 mg SL PRN PRN 01/22/17 01/22/17 Unknown Previous Rx's Medication Instructions Recorded Last Taken Type Insulin Detemir [Levemir] 10 units SUB-Q DAILY units 01/25/17 Unknown Rx amLODIPine [Norvasc] 5 mg PO DAILY #30 tab 01/25/17 Unknown Rx Allergies Allergy/AdvReac Type Severity Reaction Status Date / Time No Known Allergies Allergy Unverified 01/23/17 15:33 ED Review of Systems ROS: Stated complaint: CHEST PAIN Other details as noted in HPI Comment: All other systems reviewed and negative Other: Constitutional: No fevers chills Eyes: No eye pain visual changes ENT: No ear pain or throat pain Neck: Denies pain Respiratory: As per HPI Cardiovascular: Denies chest pain, palpitations, syncope GI: Denies abdominal pain, nausea, vomiting, diarrhea : Denies dysuria Musculoskeletal: Denies back pain Skin: Denies rash, lesions, erythema Neurologic: Denies numbness, weakness ED Past Medical Hx - Past Medical History Hx Congestive Heart Failure: Yes (echo 01/22/2017 EF 15-20%) Hx Diabetes: Yes Hx Deep Vein Thrombosis: No - Surgical History Hx Pacemaker: No Hx Internal Defibrillator: No - Social History Smoking Status: Never Smoker - Medications Home Medications: Home Medications Medication Instructions Recorded Confirmed Last Taken Type Furosemide [Lasix TAB] 20 mg PO DAILY 01/22/17 01/22/17 Unknown History Nitroglycerin [Nitrostat] 0.4 mg SL PRN PRN 01/22/17 01/22/17 Unknown History Insulin Detemir [Levemir] 10 units SUB-Q DAILY units 01/25/17 Unknown Rx amLODIPine [Norvasc] 5 mg PO DAILY #30 tab 01/25/17 Unknown Rx ED Physical Exam - General Limitations: Language Barrier - Other Other exam information: General: No limitations, patient is alert in no acute distress Head exam: Atraumatic, normocephalic Eyes exam: Normal appearance ENT: Moist mucous membrane, normal oropharynx Neck exam: Normal inspection, full range of motion, no meningismus nontender Respiratory exam: Diminished breath sounds, no wheezes, rales, or crackles. No accessory muscle use Cardiovascular: Normal rate and rhythm, normal heart sounds Abdomen: Soft, nondistended, and nontender, with normal bowel sounds, no rebound, or guarding Extremity: Full range of motion normal inspection no deformity, no calf tenderness or edema Back: Normal Inspection, full range of motion, no tenderness Neurologic: Alert, oriented x3, cranial nerves intact, no motor or sensory deficit Psychiatric: normal affect, normal mood Skin: Warm, dry, intact ED Course Vital Signs 02/16/17 20:07 Temperature 98.8 F Pulse Rate 54 L Respiratory 18 Rate Blood Pressure 114/62 O2 Sat by Pulse 95 Oximetry - Reevaluation(s) Reevaluation #1: 02/16/17 21:38 Morphine, Tessalon Perles, Zofran, aspirin, and insulin ordered - Consultations Consultation #1: 02/16/17 21:[address] Mcintosh he will consult. He consulted on patient during recent admission in January ED Medical Decision Making - Lab Data Result diagrams: 02/16/17 20:00 02/16/17 20:00 Lab Results 02/16/17 02/16/17 02/16/17 Range/Units 20:00 20:00 20:00 WBC 13.5 H (4.5-11.0) K/mm3 RBC 4.41 (3.65-5.03) M/mm3 Hgb 11.7 L (11.8-15.2) gm/dl Hct 36.5 (35.5-45.6) % MCV 83 L (84-94) fl MCH 27 L (28-32) pg MCHC 32 (32-34) % RDW 14.8 (13.2-15.2) % Plt Count 102 L (140-440) K/mm3 Lymph % (Auto) 8.6 L (13.4-35.0) % [place] % (Auto) 12.5 H (0.0-7.3) % Eos % (Auto) 0.0 (0.0-4.3) % Baso % (Auto) 0.3 (0.0-1.8) % Lymph # 1.2 (1.2-5.4) K/mm3 [place] # 1.7 H (0.0-0.8) K/mm3 Eos # 0.0 (0.0-0.4) K/mm3 Baso # 0.0 (0.0-0.1) K/mm3 Seg Neutrophils % 78.6 H (40.0-70.0) % Seg Neutrophils # 10.6 H (1.8-7.7) K/mm3 PT 18.6 H (12.2-14.9) Sec. INR 1.47 H (0.87-1.13) APTT 37.8 H (24.2-36.6) Sec. Sodium 127 L (137-145) mmol/L Potassium 4.9 (3.6-5.0) mmol/L Chloride 87.4 L (98-107) mmol/L Carbon Dioxide 21 L (22-30) mmol/L Anion Gap 24 mmol/L BUN 33 H (9-20) mg/dL Creatinine 1.8 H (0.8-1.5) mg/dL Estimated GFR 48 ml/min BUN/Creatinine Ratio 18.33 % Glucose 443 H (75-100) mg/dL Calcium 8.9 (8.4-10.2) mg/dL Troponin T 0.104 H* (0.00-0.029) ng/mL NT-Pro-B Natriuret Pep (0-900) pg/mL 02/16/17 Range/Units 20:00 WBC (4.5-11.0) K/mm3 RBC (3.65-5.03) M/mm3 Hgb (11.8-15.2) gm/dl Hct (35.5-45.6) % MCV (84-94) fl MCH (28-32) pg MCHC (32-34) % RDW (13.2-15.2) % Plt Count (140-440) K/mm3 Lymph % (Auto) (13.4-35.0) % [place] % (Auto) (0.0-7.3) % Eos % (Auto) (0.0-4.3) % Baso % (Auto) (0.0-1.8) % Lymph # (1.2-5.4) K/mm3 [place] # (0.0-0.8) K/mm3 Eos # (0.0-0.4) K/mm3 Baso # (0.0-0.1) K/mm3 Seg Neutrophils % (40.0-70.0) % Seg Neutrophils # (1.8-7.7) K/mm3 PT (12.2-14.9) Sec. INR (0.87-1.13) APTT (24.2-36.6) Sec. Sodium (137-145) mmol/L Potassium (3.6-5.0) mmol/L Chloride (98-107) mmol/L Carbon Dioxide (22-30) mmol/L Anion Gap mmol/L BUN (9-20) mg/dL Creatinine (0.8-1.5) mg/dL Estimated GFR ml/min BUN/Creatinine Ratio % Glucose (75-100) mg/dL Calcium (8.4-10.2) mg/dL Troponin T (0.00-0.029) ng/mL NT-Pro-B Natriuret Pep 2184 H (0-900) pg/mL - EKG Data -: EKG Interpreted by Me (first-degree heart block, anterior, inferior lateral T -wave inversions) - EKG Data When compared to previous EKG there are: changes noted (T-wave inversion is unchanged patient was in complete heart block previously 01/22/17) - Medical Decision Making Corrected sodium for glucose is 132. Insulin-dependent initiated. Nephrology consultation. Patient to be admitted for further treatment - Differential Diagnosis unstable angina, CHF, bronchitis, pneumonia, PE Critical Care Time: No Critical care attestation.: If time is entered above; I have spent that time in minutes in the direct care of this critically ill patient, excluding procedure time. ED Disposition Clinical Impression: Dyspnea, CHF (congestive heart failure), Acute renal insufficiency, Elevated troponin, Hyperglycemia, Hyponatremia Disposition: OP ADMIT IP TO THIS HOSP Is pt being admited?: Yes Condition: Stable Time of Disposition: 21:26 (Dr Lo/HOSP)
--- NOTE | 2017-02-16 22:55 | XRay Report ---
FINAL REPORT EXAM: XR CHEST 1V AP HISTORY: Shortness of breath TECHNIQUE: AP portable view of the chest. PRIORS: CT chest from 01/22/2017 FINDINGS: The heart is enlarged without change. There is a new left upper lobe peripheral infiltrate consistent with pneumonia. The bones and soft tissues are unremarkable. IMPRESSION: New left upper lobe peripheral infiltrate most consistent with pneumonia. Recommend followup chest x-ray 6-8 weeks to document resolution. Stable cardiomegaly
--- NOTE | 2017-02-16 23:26 | History and Physical Report ---
History of Present Illness Date of examination: 02/16/17 History of present illness: 56-year-old man with a history of hypertension, diabetes, cardiomyopathy, deaf/ mute comes to emergency room with complaints of shortness of breath 3 days, no cough, no edema, PND Review Of Systems: Constitutional: no weight loss Ears, eyes, nose, mouth and throat: no nasal congestion, no nasal discharge, no sinus pressure, blurry vision, diplopia Neck: No neck pain or rigidity. Cardiovascular: chest pain, orthopnea, palpitations Respiratory: +shortness of breath,no cough Gastrointestinal: abdominal pain, hematochezia Genitourinary : no dysuria, frequency , hematuria Musculoskeletal: no muscle ache Integumentary: no rash, no pruritis Neurological: no parathesias, focal weakness Endocrine: no cold or heat intolerance, no polyuria or polydipsia Hematologic/Lymphatic: no easy bruising, no easy bleeding, no gland swelling Allergic/Immunologic: no urticaria, no angioedema. PAST MEDICAL HISTORY:hypertension, diabetes, cardiomyopathy, deaf/mute PAST SURGICAL HISTORY: None FAMILY HISTORY: Hypertension SOCIAL HISTORY: Denies alcohol, tobacco or drugs Medications and Allergies Allergies Allergy/AdvReac Type Severity Reaction Status Date / Time No Known Allergies Allergy Verified 02/16/17 22:46 Home Medications Medication Instructions Recorded Confirmed Last Taken Type Furosemide [Lasix TAB] 20 mg PO DAILY 01/22/17 02/16/17 02/16/17 History Nitroglycerin [Nitrostat] 0.4 mg SL PRN PRN 01/22/17 02/16/17 02/16/17 History Insulin Detemir [Levemir] 10 units SUB-Q DAILY units 01/25/17 02/16/17 Rx amLODIPine [Norvasc] 5 mg PO DAILY #30 tab 01/25/17 02/16/17 02/16/17 Rx Active Meds: Active Medications Enoxaparin Sodium (Lovenox) 30 mg SUB-Q QDAY HUI Exam - Physical Exam Narrative exam: Gen. appearance: Patient lying in bed in no acute distress HEENT: Normocephalic/atraumatic, pupils equal round reactive to light, extra alkaline movement intact, no scleral icterus, no JVD or thyromegaly or nodule, neck is supple, mucous membrane moist, no erythema or exudate Heart: S1-S2, regular rate and rhythm Lungs: Crackles left upper lobe breathing comfortable Abdomen: Positive bowel sounds, nontender, nondistended, no organomegaly Extremities: No edema, cyanosis, clubbing Neuro:: Oriented 3 , cranial nerves II-12 intact, speech, motor intact Skin: No rash, nodules, warm dry - Constitutional Vitals: Temp Pulse Resp BP Pulse Ox 98.8 F 63 18 119/76 94 02/16/17 20:07 02/16/17 23:02 02/16/17 23:02 02/16/17 23:02 02/16/17 23:02 Results - Labs CBC & Chem 7: 02/16/17 20:00 02/16/17 20:00 Labs: Abnormal lab results 02/16/17 02/16/17 02/16/17 Range/Units 20:00 20:00 20:00 WBC 13.5 H (4.5-11.0) K/mm3 Hgb 11.7 L (11.8-15.2) gm/dl MCV 83 L (84-94) fl MCH 27 L (28-32) pg Plt Count 102 L (140-440) K/mm3 Lymph % (Auto) 8.6 L (13.4-35.0) % [place] % (Auto) 12.5 H (0.0-7.3) % [place] # 1.7 H (0.0-0.8) K/mm3 Seg Neutrophils % 78.6 H (40.0-70.0) % Seg Neutrophils # 10.6 H (1.8-7.7) K/mm3 PT 18.6 H (12.2-14.9) Sec. INR 1.47 H (0.87-1.13) APTT 37.8 H (24.2-36.6) Sec. Sodium 127 L (137-145) mmol/L Chloride 87.4 L (98-107) mmol/L Carbon Dioxide 21 L (22-30) mmol/L BUN 33 H (9-20) mg/dL Creatinine 1.8 H (0.8-1.5) mg/dL Glucose 443 H (75-100) mg/dL Troponin T 0.104 H* (0.00-0.029) ng/mL NT-Pro-B Natriuret Pep (0-900) pg/mL LDL Cholesterol Direct 33 L (50-130) mg/dL HDL Cholesterol 33 L (40-59) mg/dL 02/16/17 02/16/17 Range/Units 20:00 22:24 WBC (4.5-11.0) K/mm3 Hgb (11.8-15.2) gm/dl MCV (84-94) fl MCH (28-32) pg Plt Count (140-440) K/mm3 Lymph % (Auto) (13.4-35.0) % [place] % (Auto) (0.0-7.3) % [place] # (0.0-0.8) K/mm3 Seg Neutrophils % (40.0-70.0) % Seg Neutrophils # (1.8-7.7) K/mm3 PT (12.2-14.9) Sec. INR (0.87-1.13) APTT (24.2-36.6) Sec. Sodium (137-145) mmol/L Chloride (98-107) mmol/L Carbon Dioxide (22-30) mmol/L BUN (9-20) mg/dL Creatinine (0.8-1.5) mg/dL Glucose (75-100) mg/dL Troponin T 0.097 H (0.00-0.029) ng/mL NT-Pro-B Natriuret Pep 2184 H (0-900) pg/mL LDL Cholesterol Direct (50-130) mg/dL HDL Cholesterol (40-59) mg/dL - Imaging and Cardiology EKG: image reviewed Chest x-ray: image reviewed Assessment and Plan Assessment Hospital-acquired pneumonia Acute renal insufficiency Cardiomyopathy, EF 20% Hypertension Diabetes Thrombocytopenia Admit to medicine Start IV Zosyn, Levaquin, nebulized treatment Consult renal, check fingersticks and initiate insulin sliding scale Due to prophylaxis with SCD
[2017-02-17] MEDS ORDERED: TYLENOL PO PRN (01:26)
[2017-02-17] MEDS ORDERED: DULCOLAX PR PRN (01:26)
[2017-02-17] MEDS ORDERED: ZOFRAN IV PRN (01:26)
[2017-02-17] MEDS ORDERED: D50W (25GM) Syringe IV PRN (01:26)
[2017-02-17] MEDS ORDERED: PROVENTIL IH PRN (01:26)
[2017-02-17] MEDS ORDERED: MILK OF MAGNESIA PO PRN (01:26)
--- NOTE | 2017-02-17 07:09 | Admit Criteria Form ---
Admission Criteria Documentation: HEART FAILURE: COMMON COMPLICATIONS Clinical Indications for Inpatient Care (mcgrath/check or initial the applicable condition/criteria): Ongoing inpatient care may be indicated for heart failure with 1 or more of the following (1)(2)(3)(4)(5)(6)(7)(8): [ ]I. New-onset heart failure [ ]II. Acute cardiac ischemia causing or associated with failure [ ]III. Ongoing need for care for primary condition requiring frequent therapy adjustments because of changes in cardiac function (eg, drug dosage changes for drugs that are renally metabolized) [x ]IV. Complications of heart failure, including 1 or more of the following: [ ]a) Hemodynamic instability [ ]b) Pericardial effusion [ ]c) Symptomatic pleural effusion(16) [ ]d) Hypoxemia [ ]e) Tachypnea [x ]f) Dyspnea [ ]g) Syncope [ ]h) Altered mental status [ ]i) Acute renal insufficiency that is severe (reduction of more than 50% in estimated glomerular filtration rate from baseline) or progressive (reduction of more than 25% in estimated glomerular filtration rate from baseline, with creatinine continuing to rise) [ ]j) Debilitating anasarca (eg tissue breakdown with infection, inability to void due to edema)(E) (17) [ ]k) Clinically significant metabolic abnormalities due to heart failure (e.g., new-onset metabolic acidosis) Extended stay may be needed until ALL of the following are present(1)(3)(18)(41) (55): [ ]a) Hemodynamic stability [ ]b) Stable and effective diuretic regimen established (or patient on stable dialysis regimen if in chronic renal failure) [ ]c) Volume status acceptable on oral medication [ ]d) Breathing comfortably at rest [ ]e) Saturation of arterial oxygen greater than 90% or at acceptable baseline [ ]f) Pulmonary edema absent or improved [ ]g) Peripheral or sacral edema absent or improved [ ]h) Renal function stable and manageable at a lower level of care [ ]i) Complications (e.g., pleural effusion) resolved or manageable at a lower level of care [ ]j) Patient or caregiver has received written discharge instructions or educational material addressing activity level, diet, discharge medications, follow-up appointment, weight monitoring, and what to do if symptoms worsen. (56)(57)(58) The original [facility] [employer] content created by Ayden Doyle has been revised. The portions of the content which have been revised are identified through the use of italic text or in bold, and Ayden Doyle has neither reviewed nor approved the modified material.All other unmodified content is copyright [facility]. Please see references footnoted in the original [facility] edition 2017 Admission Criteria Met: Yes
[2017-02-17] MEDS: ZOSYN/NS 4.5GM/100ML 4.5 GM/100 ML VIAL IV SCH ×3 (07:55→18:06)
[2017-02-17] MEDS ORDERED: LEVEMIR SUB-Q SCH (10:00)
[2017-02-17] MEDS ORDERED: LOVENOX SUB-Q SCH (10:00)
[2017-02-17] MEDS: NORVASC PO SCH (10:39)
[2017-02-17] MEDS: LEVAQUIN 750MG/150ML 750 MG/150 ML BAG IV SCH (10:39)
[2017-02-17] MEDS: LASIX PO SCH (10:39)
[2017-02-17] MEDS: HEPARIN SUB-Q SCH ×2 (14:12→21:10)
--- NOTE | 2017-02-17 15:21 | Consultation ---
History of Present Illness - Reason for Consult Consult date: 02/17/17 acute renal failure, chronic renal failure, hyponatremia Requesting physician: AAKASH NAGY - History of Present Illness This is a 56yo AAM, with past medical history of Type 2 DM, hypertension, chronic systolic HF with LVEF 15-20%, CKD stage 2, known to me from previous hospitalization when he was admitted for hypoglycemia and 3rd degree heart block. At that time patient was found to have hyperkalemia and acute kidney injury with BUN/Cr at 27/1.9mg, however improved with hemodynamic stabilization on transvenous pacing. Cr was 1.3mg/dl prior to discharge. Patient now presents to [facility] ER with complaints of shortness of breath 3 days, along with dyspnea and exertion, orthopnea, PND, frequent cough with occasionally blood-tinged sputum. Patient also reports decreased appetite without nausea, vomiting, or abdominal pain. labs showed elevated BUN/Cr at 33/1.8mg/dl along with significant hyponatremia with Na at 127. Renal consult requested for management of INDIGO and electrolyte imbalance. Denies recent NSAIDs, or IV contrast exposure. Patient seen and examined in ER, is awake, alert, in no acute respiratory distress. pt is deaf and communicates in writing. Currently undergoing Echocardiogram. Past History Past Medical History: diabetes, heart failure, hypertension, renal failure Past Surgical History: Other (Rt ankle surgery ) Social history: denies: smoking, alcohol abuse, prescription drug abuse Family history: hypertension Medications and Allergies Allergies Allergy/AdvReac Type Severity Reaction Status Date / Time No Known Allergies Allergy Verified 02/16/17 22:46 Home Medications Medication Instructions Recorded Confirmed Last Taken Type Furosemide [Lasix TAB] 20 mg PO DAILY 01/22/17 02/16/17 02/16/17 History Nitroglycerin [Nitrostat] 0.4 mg SL PRN PRN 01/22/17 02/16/17 02/16/17 History Insulin Detemir [Levemir] 10 units SUB-Q DAILY units 01/25/17 02/16/17 Rx amLODIPine [Norvasc] 5 mg PO DAILY #30 tab 01/25/17 02/16/17 02/16/17 Rx Active Meds: Active Medications Acetaminophen (Tylenol) 650 mg PO Q4H PRN PRN Reason: Pain MILD(1-3)/Fever >100.5/ROSAS Albuterol (Proventil) 2.5 mg IH Q3HRT PRN PRN Reason: Shortness Of Breath Amlodipine Besylate (Norvasc) 5 mg PO DAILY [facility] Last Admin: 02/17/17 10:39 Dose: 5 mg Bisacodyl (Dulcolax) 10 mg [place] QDAY PRN PRN Reason: Constipation unrelieved by MOM Dextrose (D50w (25gm) Syringe) 50 ml IV PRN PRN PRN Reason: Hypoglycemia Furosemide (Lasix) 20 mg PO DAILY [facility] Last Admin: 02/17/17 10:39 Dose: 20 mg Heparin Sodium (Porcine) (Heparin) 5,000 unit SUB-Q Q8HR [facility] Last Admin: 02/17/17 14:12 Dose: 5,000 unit Levofloxacin/Dextrose (Levaquin 750mg/150ml) 750 mg in 150 mls @ 100 mls/hr IV Q24HR HUI PRN Reason: Protocol Last Admin: 02/17/17 10:39 Dose: 100 mls/hr Piperacillin Sod/Tazobactam Sod (Zosyn/Ns 4.5gm/100ml) 4.5 gm in 100 mls @ 200 mls/hr IV Q6HR HUI PRN Reason: Protocol Last Infusion: 02/17/17 14:15 Dose: Infused Insulin Aspart (Novolog) 0 units SUB-Q ACHS [facility] PRN Reason: Protocol Insulin Detemir (Levemir) 10 units SUB-Q DAILY [facility] Last Admin: 02/17/17 10:22 Dose: 10 units Magnesium Hydroxide (Milk Of Magnesia) 30 ml PO Q4H PRN PRN Reason: Constipation Ondansetron HCl (Zofran) 4 mg IV Q8H PRN PRN Reason: N/V unrelieved by Reglan Review of Systems All systems: negative Constitutional: weakness, malaise Cardiovascular: orthopnea, shortness of breath, dyspnea on exertion, paroxysmal nocturnal dyspnea Respiratory: cough with sputum Gastrointestinal: nausea Exam - Vital Signs Vital signs: Vital Signs Temp Pulse Resp BP Pulse Ox 98.8 F 54 L 18 114/62 95 02/16/17 20:07 02/16/17 20:07 02/16/17 20:07 02/16/17 20:07 02/16/17 20:07 - General Appearance General appearance: well-developed, well-nourished, appears stated age, other ( deaf/mute ) Neck: Present: neck supple Respiratory: Decreased Breath Sounds Heart: regular, S1S2 Gastrointestinal: Present: normoactive bowel sounds Integumentary: no rash, other (no edema ) Neurologic: no focal deficit, alert and oriented x3, strength 5/5, CN 3-12 intact Psychiatric: mood/affect appropriate, cooperative Results - Lab Results 02/16/17 20:00 02/16/17 20:00 Most recent lab results Calcium 8.9 mg/dL (8.4-10.2) 02/16/17 20:00 Laboratory Tests 02/16/17 02/16/17 02/16/17 20:00 20:00 20:00 WBC 13.5 H RBC 4.41 PT 18.6 H INR 1.47 H APTT 37.8 H POC Glucose Calcium 8.9 Troponin T 0.104 H* NT-Pro-B Natriuret Pep Triglycerides 62 Cholesterol 78 LDL Cholesterol Direct 33 L HDL Cholesterol 33 L Cholesterol/HDL Ratio 2.36 02/16/17 02/17/17 02/17/17 20:00 03:00 13:34 WBC RBC PT INR APTT POC Glucose 430 H Calcium Troponin T 0.100 H NT-Pro-B Natriuret Pep 2184 H Triglycerides Cholesterol LDL Cholesterol Direct HDL Cholesterol Cholesterol/HDL Ratio Assessment and Plan - Patient Problems (1) Acute renal insufficiency Current Visit: Yes Status: Acute Plan to address problem: acute kidney injury most likely due to pre-renal azotemia in the setting of pneumonia, uncontrolled glucose. check UA, urine lytes, urine protein/Cr ratio. Gentle hydration with IV NS at 50ml/hr (2) Pneumonia Current Visit: Yes Status: Acute Qualifiers: Pneumonia type: P Aspiration pneumonia type: A Laterality: L Lung location: L Plan to address problem: CXR reveals CAROLYNN pneumonia. cont ABX treatment with levaquin, zosyn. dose for current GFR. (3) Hyperglycemia Current Visit: Yes Status: Acute Plan to address problem: glucose control as per primary attending (4) Hyponatremia Current Visit: Yes Status: Acute Plan to address problem: likely pseudohyponatremia in the setting of hyperglycemia. will recheck BMP after adequate glucose control. Cont gentle IV NS (5) Chronic systolic heart failure Current Visit: Yes Status: Acute Plan to address problem: currently compensated. will consider RUFUS-I once eGFR is in steady state. (6) Type 2 diabetes mellitus with diabetic chronic kidney disease Current Visit: No Status: Chronic Qualifiers: Diabetes mellitus fdc insulin use: D Chronic kidney disease stage: stage 2 (mild)
[2017-02-17] MEDS: NOVOLOG SUB-Q SCH ×2 (16:18→21:59)
--- NOTE | 2017-02-17 16:46 | Progress Note ---
Assessment and Plan Assessment and plan: 1. Sepsis secondary to pneumonia likely hospital-acquired Cultures obtained Started on IV antibiotics dosed for renal function and IV fluids 2. Acute renal failure Likely secondary to vasomotor nephropathy Nephrology consulted and additional workup in progress Gentle hydration 3. Acute on chronic systolic heart failure/Cardiomyopathy Echo pending 4. Hypertension Currently on amlodipine Monitor BP 5. Diabetes Blood sugars significantly elevated Reason long-acting insulin along with SSI to assess insulin requirements 6. Hyponatremia Likely pseudohyponatremia due to hyperglycemia Monitor 7. Thrombocytopenia Possible secondary to sepsis Monitor 8. DVT/GI prophylaxis History Interval history: SOB, nauseated, trowing up Hospitalist Physical - Constitutional Vitals: Temp Pulse Resp BP Pulse Ox 98.9 F 64 18 130/103 85 02/17/17 00:30 02/17/17 14:30 02/17/17 14:30 02/17/17 07:30 02/17/17 14:30 General appearance: Present: mild distress, obese - EENT Eyes: Present: PERRL, EOM intact ENT: other (deaf, mute) - Neck Neck: Absent: enlarged thyroid, masses or JVD, carotid bruits - Respiratory Respiratory effort: labored Respiratory: bilateral: diminished, rhonchi, negative: wheezing - Cardiovascular Rhythm: other (tachycardia) Heart Sounds: Present: S1 & S2. Absent: systolic murmur - Extremities Extremities: no ischemia - Abdominal General gastrointestinal: soft, non-tender, non-distended, normal bowel sounds, other (abdomen obese, protuberant) - Psychiatric Psychiatric: appropriate mood/affect - Neurologic Neurologic: CNII-XII intact, no focal deficits Results - Labs CBC & Chem 7: 02/20/17 06:44 02/20/17 06:44 Labs: Laboratory Last Values WBC 13.5 K/mm3 (4.5-11.0) H 02/16/17 20:00 RBC 4.41 M/mm3 (3.65-5.03) 02/16/17 20:00 Hgb 11.7 gm/dl (11.8-15.2) L 02/16/17 20:00 Hct 36.5 % (35.5-45.6) 02/16/17 20:00 MCV 83 fl (84-94) L 02/16/17 20:00 MCH 27 pg (28-32) L 02/16/17 20:00 MCHC 32 % (32-34) 02/16/17 20:00 RDW 14.8 % (13.2-15.2) 02/16/17 20:00 Plt Count 102 K/mm3 (140-440) L 02/16/17 20:00 Lymph % (Auto) 8.6 % (13.4-35.0) L 02/16/17 20:00 [place] % (Auto) 12.5 % (0.0-7.3) H 02/16/17 20:00 Eos % (Auto) 0.0 % (0.0-4.3) 02/16/17 20:00 Baso % (Auto) 0.3 % (0.0-1.8) 02/16/17 20:00 Lymph # 1.2 K/mm3 (1.2-5.4) 02/16/17 20:00 [place] # 1.7 K/mm3 (0.0-0.8) H 02/16/17 20:00 Eos # 0.0 K/mm3 (0.0-0.4) 02/16/17 20:00 Baso # 0.0 K/mm3 (0.0-0.1) 02/16/17 20:00 Seg Neutrophils % 78.6 % (40.0-70.0) H 02/16/17 20:00 Seg Neutrophils # 10.6 K/mm3 (1.8-7.7) H 02/16/17 20:00 PT 18.6 Sec. (12.2-14.9) H 02/16/17 20:00 INR 1.47 (0.87-1.13) H 02/16/17 20:00 APTT 37.8 Sec. (24.2-36.6) H 02/16/17 20:00 Sodium 127 mmol/L (137-145) L 02/16/17 20:00 Potassium 4.9 mmol/L (3.6-5.0) 02/16/17 20:00 Chloride 87.4 mmol/L (98-107) L 02/16/17 20:00 Carbon Dioxide 21 mmol/L (22-30) L 02/16/17 20:00 Anion Gap 24 mmol/L 02/16/17 20:00 BUN 33 mg/dL (9-20) H 02/16/17 20:00 Creatinine 1.8 mg/dL (0.8-1.5) H 02/16/17 20:00 Estimated GFR 48 ml/min 02/16/17 20:00 BUN/Creatinine Ratio 18.33 % 02/16/17 20:00 Glucose 443 mg/dL (75-100) H 02/16/17 20:00 POC Glucose 382 (70-105) H 02/17/17 15:59 Calcium 8.9 mg/dL (8.4-10.2) 02/16/17 20:00 Troponin T 0.100 ng/mL (0.00-0.029) H 02/17/17 03:00 NT-Pro-B Natriuret Pep 2184 pg/mL (0-900) H 02/16/17 20:00 Triglycerides 62 mg/dL (2-149) 02/16/17 20:00 Cholesterol 78 mg/dL (50-199) 02/16/17 20:00 LDL Cholesterol Direct 33 mg/dL (50-130) L 02/16/17 20:00 HDL Cholesterol 33 mg/dL (40-59) L 02/16/17 20:00 Cholesterol/HDL Ratio 2.36 % 02/16/17 20:00
[2017-02-17] MEDS: NACL 0.9% 1000 ML 1,000 ML IV SCH (18:07)
[2017-02-18] MEDS: HEPARIN SUB-Q SCH ×3 (05:25→21:02)
[2017-02-18] MEDS: ZOSYN/NS 4.5GM/100ML 4.5 GM/100 ML VIAL IV SCH ×3 (05:25→12:31)
[2017-02-18 05:33] LABS: Hemoglobin 10.8 gm/dl (11.8-15.2); Mean Corpuscular HGB Conc 33 % (32-34); Mean Corpuscular Hemoglobin 27 pg (28-32); Mean Corpuscular Volume 83 fl (84-94); Red Blood Count 3.99 M/mm3 (3.65-5.03); Red Cell Distribution Width 14.7 % (13.2-15.2); White Blood Count 7.8 K/mm3 (4.5-11.0)
[2017-02-18 05:34] LABS: Platelet Count 99 K/mm3 (140-440)
[2017-02-18 05:53] LABS: BUN/Creatinine Ratio 21.36; Calcium 8.6 mg/dL (8.4-10.2); Potassium 5.3 mmol/L (3.6-5.0)
[2017-02-18 06:28] LABS: Basophils % (Manual) 0 % (0.0-1.8); Blastocytes % (Manual) 0 %; Eosinophils % (Manual) 0 % (0.0-4.3)
[2017-02-18 06:29] LABS: Anisocytosis 1+; Hypochromasia 1+; Large Platelets Few; Ovalocytes Few; Spherocytes Few; Target Cells Rare
[2017-02-18 06:30] LABS: Diff Status Complete; Platelet Estimate Consistent w Auto
[2017-02-18] MEDS: LEVAQUIN 750MG/150ML 750 MG/150 ML BAG IV SCH (10:23)
[2017-02-18] MEDS: NORVASC PO SCH (10:23)
[2017-02-18] MEDS: LASIX PO SCH (10:23)
[2017-02-18] MEDS: NOVOLOG SUB-Q SCH ×4 (10:23→22:13)
[2017-02-18] MEDS ORDERED: KIONEX PO ONE (13:38)
--- NOTE | 2017-02-18 15:09 | Progress Note ---
Assessment and Plan - Patient Problems (1) Acute kidney injury superimposed on chronic kidney disease Current Visit: Yes Status: Acute Plan to address problem: Chronic kidney disease presumably secondary to diabetic nephropathy/ hypertensive nephrosclerosis. Acute kidney injury possibly pronounced tenderness secondary to sepsis and volume depletion with hyperglycemia at Hospital to diuresis. Kidney function is still a bit worse. Continue to monitor electrolytes and renal function (2) Hypertensive chronic kidney disease with stage 1 through stage 4 chronic kidney disease, or unspecified chronic kidney disease Current Visit: Yes Status: Acute Plan to address problem: Follow-up blood pressure on current medications (3) Chronic systolic heart failure Current Visit: Yes Status: Acute Plan to address problem: Diuretics on hold. Monitor closely (4) Hyponatremia Current Visit: Yes Status: Acute Plan to address problem: Hypovolemic on presentation. 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 Blood sugar management by primary attending Subjective Date of service: 02/18/17 Interval history: Patient seen lying in bed. at the bedside. He has no complaints. He feels better but not great Objective - Exam Narrative Exam: Middle-aged -N[place]ien lying In bed in no acute distress HEENT: NCAT, pink oral mucous membrane Neck: Supple, no venous distention CVS: S1S2 RRR with no murmur, rub or gallop Chest: Bilateral rhonchi Abdomen: Protuberant, soft, nontender, no organomegaly, bowel sounds are present Extremities: No edema Neuro: Awake, alert no focal deficits - Vital Signs Vital signs: Vital Signs - 12hr 02/18/17 02/18/17 02/18/17 04:26 07:41 07:45 Temperature 97.9 F 99.4 F Pulse Rate 62 61 94 H Respiratory 18 20 Rate Blood Pressure 103/47 Blood Pressure 120/72 [Right] O2 Sat by Pulse 95 98 98 Oximetry 02/18/17 02/18/17 10:00 12:18 Temperature Pulse Rate 63 Respiratory Rate Blood Pressure 119/77 Blood Pressure [Right] O2 Sat by Pulse 97 96 Oximetry - Lab 02/18/17 05:08 02/18/17 05:08 Most recent lab results Calcium 8.6 mg/dL (8.4-10.2) 02/18/17 05:08
[2017-02-18] MEDS: LEVEMIR SUB-Q SCH (15:23)
--- NOTE | 2017-02-18 19:18 | Progress Note ---
Assessment and Plan Assessment and plan: 1. Sepsis secondary to pneumonia likely hospital-acquired Cultures obtained Continue IV antibiotics dosed for renal function and IV fluids 2. Acute renal failure Likely secondary to vasomotor nephropathy Nephrology consulted and additional workup in progress Gentle hydration 3. Acute on chronic systolic heart failure/Cardiomyopathy Echo showing decreased LV function EF 30-35%, diastolic dysfunction and moderate pulmonary hypertension Not on BB diet history of AV block Not on ACEI due to renal insufficiency 4. Hypertension Currently on amlodipine Monitor BP 5. Diabetes Blood sugars significantly elevated On long-acting insulin along with SSI to assess insulin requirements 6. Hyponatremia Likely pseudohyponatremia due to hyperglycemia Monitor 7. Thrombocytopenia Possible secondary to sepsis Monitor 8. DVT/GI prophylaxis History Interval history: feeling better, SOB improved Hospitalist Physical - Constitutional Vitals: Temp Pulse Resp BP Pulse Ox 98.3 F 62 22 132/83 95 02/18/17 16:29 02/18/17 16:29 02/18/17 16:29 02/18/17 16:29 02/18/17 16:29 General appearance: Present: no acute distress, obese - EENT Eyes: Present: PERRL, EOM intact ENT: other (deaf, mute) - Neck Neck: Present: supple. Absent: enlarged thyroid, masses or JVD - Respiratory Respiratory effort: normal (at rest) Respiratory: bilateral: diminished (bibasilar), rhonchi, negative: wheezing - Cardiovascular Rhythm: regular Heart Sounds: Present: S1 & S2. Absent: systolic murmur - Extremities Extremities: no ischemia - Abdominal General gastrointestinal: soft, non-tender, non-distended, normal bowel sounds - Psychiatric Psychiatric: appropriate mood/affect - Neurologic Neurologic: CNII-XII intact, no focal deficits Results - Labs CBC & Chem 7: 02/20/17 06:44 02/20/17 06:44 Labs: Laboratory Last Values WBC 7.8 K/mm3 (4.5-11.0) 02/18/17 05:08 RBC 3.99 M/mm3 (3.65-5.03) 02/18/17 05:08 Hgb 10.8 gm/dl (11.8-15.2) L 02/18/17 05:08 Hct 33.0 % (35.5-45.6) L 02/18/17 05:08 MCV 83 fl (84-94) L 02/18/17 05:08 MCH 27 pg (28-32) L 02/18/17 05:08 MCHC 33 % (32-34) 02/18/17 05:08 RDW 14.7 % (13.2-15.2) 02/18/17 05:08 Plt Count 99 K/mm3 (140-440) L 02/18/17 05:08 Lymph % (Auto) 8.6 % (13.4-35.0) L 02/16/17 20:00 [place] % (Auto) 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 02/18/17 05:08 Eos % (Auto) 0.0 % (0.0-4.3) 02/16/17 20:00 Baso % (Auto) 0.3 % (0.0-1.8) 02/16/17 20:00 Lymph # 1.2 K/mm3 (1.2-5.4) 02/16/17 20:00 [place] # 1.7 K/mm3 (0.0-0.8) H 02/16/17 20:00 Eos # 0.0 K/mm3 (0.0-0.4) 02/16/17 20:00 Baso # 0.0 K/mm3 (0.0-0.1) 02/16/17 20:00 Add Manual Diff Complete 02/18/17 05:08 Total Counted 100 02/18/17 05:08 Seg Neutrophils % 78.6 % (40.0-70.0) H 02/16/17 20:00 Seg Neuts % (Manual) 58.0 % (40.0-70.0) 02/18/17 05:08 Band Neutrophils % 23.0 % 02/18/17 05:08 Lymphocytes % (Manual) 7.0 % (13.4-35.0) L 02/18/17 05:08 Reactive Lymphs % (Man) 0 % 02/18/17 05:08 Monocytes % (Manual) 12.0 % (0.0-7.3) H 02/18/17 05:08 Eosinophils % (Manual) 0 % (0.0-4.3) 02/18/17 05:08 Basophils % (Manual) 0 % (0.0-1.8) 02/18/17 05:08 Metamyelocytes % 0 % 02/18/17 05:08 Myelocytes % 0 % 02/18/17 05:08 Promyelocytes % 0 % 02/18/17 05:08 Blast Cells % 0 % 02/18/17 05:08 Nucleated RBC % Not Reportable 02/18/17 05:08 Seg Neutrophils # 10.6 K/mm3 (1.8-7.7) H 02/16/17 20:00 Seg Neutrophils # Man 4.5 K/mm3 (1.8-7.7) 02/18/17 05:08 Band Neutrophils # 1.8 K/mm3 02/18/17 05:08 Lymphocytes # (Manual) 0.5 K/mm3 (1.2-5.4) L 02/18/17 05:08 Abs React Lymphs (Man) 0.0 K/mm3 02/18/17 05:08 Monocytes # (Manual) 0.9 K/mm3 (0.0-0.8) H 02/18/17 05:08 Eosinophils # (Manual) 0.0 K/mm3 (0.0-0.4) 02/18/17 05:08 Basophils # (Manual) 0.0 K/mm3 (0.0-0.1) 02/18/17 05:08 Metamyelocytes # 0.0 K/mm3 02/18/17 05:08 Myelocytes # 0.0 K/mm3 02/18/17 05:08 Promyelocytes # 0.0 K/mm3 02/18/17 05:08 Blast Cells # 0.0 K/mm3 02/18/17 05:08 WBC Morphology Not Reportable 02/18/17 05:08 Hypersegmented Neuts Not Reportable 02/18/17 05:08 Hyposegmented Neuts Not Reportable 02/18/17 05:08 Hypogranular Neuts Not Reportable 02/18/17 05:08 Smudge Cells Not Reportable 02/18/17 05:08 Toxic Granulation Not Reportable 02/18/17 05:08 Toxic Vacuolation Not Reportable 02/18/17 05:08 Dohle Bodies Not Reportable 02/18/17 05:08 Pelger-Huet Anomaly Not Reportable 02/18/17 05:08 Vivek Rods Not Reportable 02/18/17 05:08 Platelet Estimate Consistent w auto 02/18/17 05:08 Clumped Platelets Not Reportable 02/18/17 05:08 Plt Clumps, EDTA Not Reportable 02/18/17 05:08 Large Platelets Few 02/18/17 05:08 Giant Platelets Not Reportable 02/18/17 05:08 Platelet Satelliting Not Reportable 02/18/17 05:08 Plt Morphology Comment Not Reportable 02/18/17 05:08 RBC Morphology Not Reportable 02/18/17 05:08 Dimorphic RBCs Not Reportable 02/18/17 05:08 Polychromasia Not Reportable 02/18/17 05:08 Hypochromasia 1+ 02/18/17 05:08 Poikilocytosis Not Reportable 02/18/17 05:08 Anisocytosis 1+ 02/18/17 05:08 Microcytosis Not Reportable 02/18/17 05:08 Macrocytosis Not Reportable 02/18/17 05:08 Spherocytes Few 02/18/17 05:08 Pappenheimer Bodies Not Reportable 02/18/17 05:08 Sickle Cells Not Reportable 02/18/17 05:08 Target Cells Rare 02/18/17 05:08 Tear Drop Cells Not Reportable 02/18/17 05:08 Ovalocytes Few 02/18/17 05:08 Helmet Cells Not Reportable 02/18/17 05:08 Villarreal-Lugoff Bodies Not Reportable 02/18/17 05:08 [place] Rings Not Reportable 02/18/17 05:08 [place] Cells Not Reportable 02/18/17 05:08 Bite Cells Not Reportable 02/18/17 05:08 Crenated Cell Not Reportable 02/18/17 05:08 Elliptocytes Not Reportable 02/18/17 05:08 Acanthocytes (Spur) Not Reportable 02/18/17 05:08 Rouleaux Not Reportable 02/18/17 05:08 Hemoglobin C Crystals Not Reportable 02/18/17 05:08 Schistocytes Not Reportable 02/18/17 05:08 Malaria parasites Not Reportable 02/18/17 05:08 Miguel Bodies Not Reportable 02/18/17 05:08 Hem Pathologist Commnt No 02/18/17 05:08 PT 18.6 Sec. (12.2-14.9) H 02/16/17 20:00 INR 1.47 (0.87-1.13) H 02/16/17 20:00 APTT 37.8 Sec. (24.2-36.6) H 02/16/17 20:00 Sodium 127 mmol/L (137-145) L 02/18/17 05:08 Potassium 5.3 mmol/L (3.6-5.0) H 02/18/17 05:08 Chloride 89.0 mmol/L (98-107) L 02/18/17 05:08 Carbon Dioxide 22 mmol/L (22-30) 02/18/17 05:08 Anion Gap 21 mmol/L 02/18/17 05:08 BUN 47 mg/dL (9-20) H 02/18/17 05:08 Creatinine 2.2 mg/dL (0.8-1.5) H 02/18/17 05:08 Estimated GFR 38 ml/min 02/18/17 05:08 BUN/Creatinine Ratio 21.36 % 02/18/17 05:08 Glucose 365 mg/dL (75-100) H 02/18/17 05:08 POC Glucose 282 (70-105) H 02/18/17 16:29 Calcium 8.6 mg/dL (8.4-10.2) 02/18/17 05:08 Troponin T 0.100 ng/mL (0.00-0.029) H 02/17/17 03:00 NT-Pro-B Natriuret Pep 2184 pg/mL (0-900) H 02/16/17 20:00 Triglycerides 62 mg/dL (2-149) 02/16/17 20:00 Cholesterol 78 mg/dL (50-199) 02/16/17 20:00 LDL Cholesterol Direct 33 mg/dL (50-130) L 02/16/17 20:00 HDL Cholesterol 33 mg/dL (40-59) L 02/16/17 20:00 Cholesterol/HDL Ratio 2.36 % 02/16/17 20:00
[2017-02-18] MEDS: ZOSYN/NS 3.375GM/50ML 3.375 GM/50 ML BAG IV SCH (20:59)
[2017-02-18] MEDS: NACL 0.9% 1000 ML 1,000 ML IV SCH (20:59)
[2017-02-18] MEDS ORDERED: ZOSYN/NS 4.5GM/100ML 4.5 GM/100 ML VIAL IV SCH (22:00)
[2017-02-19] MEDS: ZOSYN/NS 3.375GM/50ML 3.375 GM/50 ML BAG IV SCH ×4 (04:19→22:25)
[2017-02-19] MEDS: HEPARIN SUB-Q SCH ×3 (05:09→22:18)
[2017-02-19 06:12] LABS: Hematocrit 32.7 % (35.5-45.6); Hemoglobin 10.9 gm/dl (11.8-15.2); Mean Corpuscular HGB Conc 34 % (32-34); Mean Corpuscular Hemoglobin 27 pg (28-32); Mean Corpuscular Volume 81 fl (84-94); Red Blood Count 4.03 M/mm3 (3.65-5.03); Red Cell Distribution Width 14.7 % (13.2-15.2); White Blood Count 7.2 K/mm3 (4.5-11.0)
[2017-02-19 06:15] LABS: Platelet Count 88 K/mm3 (140-440)
[2017-02-19 06:18] LABS: Albumin 3.4 g/dL (3.9-5); Albumin/Globulin Ratio 0.9 %; Bilirubin,Total 2.5 mg/dL (0.1-1.2); Calcium 8.9 mg/dL (8.4-10.2); Chloride 88.5 mmol/L (98-107); Magnesium 2.1 mg/dL (1.7-2.3); Phosphorous 2.9 mg/dL (2.5-4.5); Total Protein 7.2 g/dL (6.3-8.2)
[2017-02-19 07:38] LABS: Blastocytes % (Manual) 0 %
[2017-02-19 07:39] LABS: Anisocytosis 1+; Diff Status Complete; Elliptocytes Few; Hypochromasia 1+; Large Platelets Rare; Ovalocytes Few
[2017-02-19 07:40] LABS: Platelet Estimate Consistent w Auto
[2017-02-19] MEDS: NOVOLOG SUB-Q SCH ×4 (09:45→22:24)
[2017-02-19] MEDS: NORVASC PO SCH (09:54)
[2017-02-19] MEDS: LASIX PO SCH (09:54)
[2017-02-19] MEDS: LEVEMIR SUB-Q SCH ×2 (10:08→15:11)
[2017-02-19] MEDS ORDERED: VANCOMYCIN 2,000 MG in NACL 0.9% 500 ML 500 ML IV ONE ×2 (12:45→19:00)
[2017-02-19] MEDS ORDERED: VANCOMYCIN PHARMACY TO DOSE IV SCH (13:00)
--- NOTE | 2017-02-19 14:44 | Progress Note ---
Assessment and Plan - Patient Problems (1) Acute kidney injury superimposed on chronic kidney disease Current Visit: Yes Status: Acute Plan to address problem: Chronic kidney disease presumably secondary to diabetic nephropathy/ hypertensive nephrosclerosis. Acute kidney injury possibly pronounced tenderness secondary to sepsis and volume depletion with hyperglycemia at Hospital to diuresis. Kidney function is a bit better. Continue to monitor electrolytes and renal function (2) Hypertensive chronic kidney disease with stage 1 through stage 4 chronic kidney disease, or unspecified chronic kidney disease Current Visit: Yes Status: Acute Plan to address problem: Follow-up blood pressure on current medications (3) Chronic systolic heart failure Current Visit: Yes Status: Acute Plan to address problem: Diuretics on hold. Monitor closely (4) Hyponatremia Current Visit: Yes Status: Acute Plan to address problem: Hypovolemic on presentation. 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 Blood sugar management by primary attending (8) Hemoptysis Current Visit: Yes Status: Acute Plan to address problem: These may be related to bronchitis/pneumonia but will get a CT scan of the chest. Given kidney function, will get one without contrast Subjective Date of service: 02/19/17 Interval history: Patient seen lying in bed. Communicating by writing. He has no complaints. He has had some episodes of hemoptysis Objective - Exam Narrative Exam: Middle-aged -Gabonese lying In bed in no acute distress HEENT: NCAT, pink oral mucous membrane Neck: Supple, no venous distention CVS: S1S2 RRR with no murmur, rub or gallop Chest: Bilateral rhonchi Abdomen: Protuberant, soft, nontender, no organomegaly, bowel sounds are present Extremities: No edema Neuro: Awake, alert no focal deficits - Vital Signs Vital signs: Vital Signs - 12hr 02/19/17 02/19/17 02/19/17 04:26 08:00 08:24 Temperature 99.8 F H Pulse Rate 70 83 Respiratory 20 Rate Blood Pressure 162/89 O2 Sat by Pulse 95 93 Oximetry 02/19/17 02/19/17 08:36 09:54 Temperature 101.7 F H Pulse Rate 71 84 Respiratory 22 Rate Blood Pressure 140/85 O2 Sat by Pulse 97 Oximetry - Lab 02/19/17 05:33 02/19/17 05:33 Most recent lab results Calcium 8.9 mg/dL (8.4-10.2) 02/19/17 05:33 Phosphorus 2.90 mg/dL (2.5-4.5) 02/19/17 05:33 Magnesium 2.10 mg/dL (1.7-2.3) 02/19/17 05:33
--- NOTE | 2017-02-19 17:48 | Cat Scan Report ---
FINAL REPORT PROCEDURE: CT CHEST WO CON TECHNIQUE: Computerized axial tomography of the chest was performed without contrast material. This study is performed without intravenous contrast and the sensitivity for pathology, including neoplasms, adenopathy, abscess, pulmonary embolism and aortic dissection, is reduced. HISTORY: hemoptysis COMPARISON: 01/22/2017 TECHNICAL QUALITY: Satisfactory. FINDINGS: Heart and pericardium: The heart is enlarged. No pericardial effusion is present. Thoracic aorta: Normal caliber. Pulmonary vasculature: Normal. Lymph nodes: There is a stable enlarged right paratracheal lymph node, measuring up to 18 millimeters short axis. Lungs: There is new dense consolidation in the left upper lobe abutting the fissure, with air bronchograms, compatible with pneumonia. Central airways appear patent. Lower lobe ground-glass opacities seen previously have resolved. Pleural space: No effusion, thickening, or pneumothorax. Musculoskeletal structures: No significant abnormality. Upper abdominal structures: Left adrenal hyperplasia. IMPRESSION: Left upper lobe airspace consolidation is compatible with pneumonia. Recommend follow-up to resolution to exclude underlying disease process. Cardiomegaly.
--- NOTE | 2017-02-19 18:36 | Progress Note ---
Assessment and Plan Assessment and plan: 1. Sepsis secondary to pneumonia likely hospital-acquired Cultures obtained Continue IV antibiotics dosed for renal function and IV fluids 2. Acute renal failure Likely secondary to vasomotor nephropathy Nephrology consulted and additional workup in progress Gentle hydration 3. Acute on chronic systolic heart failure/Cardiomyopathy Echo showing decreased LV function EF 30-35%, diastolic dysfunction and moderate pulmonary hypertension Not on BB diet history of AV block Not on ACEI due to renal insufficiency 4. Hypertension Currently on amlodipine Monitor BP 5. Pancreatitis Nausea, vomiting Lipase slightly elevated Triglycerides within normal limits Check RUQ US to assess for gallstones 6. Diabetes Blood sugars significantly elevated Adjust long-acting insulin dose; continue SSI to assess insulin requirements 7. Hyponatremia Likely pseudohyponatremia due to hyperglycemia Monitor 7. Thrombocytopenia Possible secondary to sepsis Monitor 8. DVT/GI prophylaxis History Interval history: nauseated, trowing up; SOB improved Hospitalist Physical - Constitutional Vitals: Temp Pulse Resp BP Pulse Ox 101.7 F H 84 22 140/85 97 02/19/17 08:36 02/19/17 09:54 02/19/17 08:36 02/19/17 08:36 02/19/17 08:36 General appearance: Present: no acute distress, obese - EENT Eyes: Present: PERRL, EOM intact ENT: other (deaf, mute, communicating in writing) - Respiratory Respiratory effort: normal Respiratory: bilateral: diminished, negative: rhonchi, wheezing - Cardiovascular Rhythm: regular Heart Sounds: Present: S1 & S2. Absent: systolic murmur - Extremities Extremities: no ischemia - Abdominal General gastrointestinal: soft, tender, normal bowel sounds, other (abdomen obese, protuberant) Localized gastrointestinal: tender: epigastric periumbilical - Psychiatric Psychiatric: cooperative - Neurologic Neurologic: CNII-XII intact, no focal deficits Results - Labs CBC & Chem 7: 02/20/17 06:44 02/20/17 06:44 Labs: Laboratory Last Values WBC 7.2 K/mm3 (4.5-11.0) 02/19/17 05:33 RBC 4.03 M/mm3 (3.65-5.03) 02/19/17 05:33 Hgb 10.9 gm/dl (11.8-15.2) L 02/19/17 05:33 Hct 32.7 % (35.5-45.6) L 02/19/17 05:33 MCV 81 fl (84-94) L 02/19/17 05:33 MCH 27 pg (28-32) L 02/19/17 05:33 MCHC 34 % (32-34) 02/19/17 05:33 RDW 14.7 % (13.2-15.2) 02/19/17 05:33 Plt Count 88 K/mm3 (140-440) L 02/19/17 05:33 Lymph % (Auto) 8.6 % (13.4-35.0) L 02/16/17 20:00 [place] % (Auto) Recruitment Assistant 02/19/17 05:33 Eos % (Auto) 0.0 % (0.0-4.3) 02/16/17 20:00 Baso % (Auto) 0.3 % (0.0-1.8) 02/16/17 20:00 Lymph # 1.2 K/mm3 (1.2-5.4) 02/16/17 20:00 [place] # 1.7 K/mm3 (0.0-0.8) H 02/16/17 20:00 Eos # 0.0 K/mm3 (0.0-0.4) 02/16/17 20:00 Baso # 0.0 K/mm3 (0.0-0.1) 02/16/17 20:00 Add Manual Diff Complete 02/19/17 05:33 Total Counted 100 02/19/17 05:33 Seg Neutrophils % 78.6 % (40.0-70.0) H 02/16/17 20:00 Seg Neuts % (Manual) 63.0 % (40.0-70.0) 02/19/17 05:33 Band Neutrophils % 16.0 % 02/19/17 05:33 Lymphocytes % (Manual) 10.0 % (13.4-35.0) L 02/19/17 05:33 Reactive Lymphs % (Man) 0 % 02/19/17 05:33 Monocytes % (Manual) 8.0 % (0.0-7.3) H 02/19/17 05:33 Eosinophils % (Manual) 0 % (0.0-4.3) 02/18/17 05:08 Basophils % (Manual) 0 % (0.0-1.8) 02/18/17 05:08 Metamyelocytes % 3.0 % 02/19/17 05:33 Myelocytes % 0 % 02/19/17 05:33 Promyelocytes % 0 % 02/19/17 05:33 Blast Cells % 0 % 02/19/17 05:33 Nucleated RBC % Not Reportable 02/19/17 05:33 Seg Neutrophils # 10.6 K/mm3 (1.8-7.7) H 02/16/17 20:00 Seg Neutrophils # Man 4.5 K/mm3 (1.8-7.7) 02/19/17 05:33 Band Neutrophils # 1.2 K/mm3 02/19/17 05:33 Lymphocytes # (Manual) 0.7 K/mm3 (1.2-5.4) L 02/19/17 05:33 Abs React Lymphs (Man) 0.0 K/mm3 02/19/17 05:33 Monocytes # (Manual) 0.6 K/mm3 (0.0-0.8) 02/19/17 05:33 Eosinophils # (Manual) 0.0 K/mm3 (0.0-0.4) 02/19/17 05:33 Basophils # (Manual) 0.0 K/mm3 (0.0-0.1) 02/19/17 05:33 Metamyelocytes # 0.2 K/mm3 02/19/17 05:33 Myelocytes # 0.0 K/mm3 02/19/17 05:33 Promyelocytes # 0.0 K/mm3 02/19/17 05:33 Blast Cells # 0.0 K/mm3 02/19/17 05:33 WBC Morphology Not Reportable 02/19/17 05:33 Hypersegmented Neuts Not Reportable 02/19/17 05:33 Hyposegmented Neuts Not Reportable 02/19/17 05:33 Hypogranular Neuts Not Reportable 02/19/17 05:33 Smudge Cells Not Reportable 02/19/17 05:33 Toxic Granulation Not Reportable 02/19/17 05:33 Toxic Vacuolation Not Reportable 02/19/17 05:33 Dohle Bodies Not Reportable 02/19/17 05:33 Pelger-Huet Anomaly Not Reportable 02/19/17 05:33 Vivek Rods Not Reportable 02/19/17 05:33 Platelet Estimate Consistent w auto 02/19/17 05:33 Clumped Platelets Not Reportable 02/19/17 05:33 Plt Clumps, EDTA Not Reportable 02/19/17 05:33 Large Platelets Rare 02/19/17 05:33 Giant Platelets Not Reportable 02/19/17 05:33 Platelet Satelliting Not Reportable 02/19/17 05:33 Plt Morphology Comment Not Reportable 02/19/17 05:33 RBC Morphology Not Reportable 02/19/17 05:33 Dimorphic RBCs Not Reportable 02/19/17 05:33 Polychromasia Not Reportable 02/19/17 05:33 Hypochromasia 1+ 02/19/17 05:33 Poikilocytosis Not Reportable 02/19/17 05:33 Anisocytosis 1+ 02/19/17 05:33 Microcytosis Not Reportable 02/19/17 05:33 Macrocytosis Not Reportable 02/19/17 05:33 Spherocytes Not Reportable 02/19/17 05:33 Pappenheimer Bodies Not Reportable 02/19/17 05:33 Sickle Cells Not Reportable 02/19/17 05:33 Target Cells Not Reportable 02/19/17 05:33 Tear Drop Cells Not Reportable 02/19/17 05:33 Ovalocytes Few 02/19/17 05:33 Helmet Cells Not Reportable 02/19/17 05:33 Villar[place] Bodies Not Reportable 02/19/17 05:33 [place] Rings Not Reportable 02/19/17 05:33 [place] Cells Not Reportable 02/19/17 05:33 Bite Cells Not Reportable 02/19/17 05:33 Crenated Cell Not Reportable 02/19/17 05:33 Elliptocytes Few 02/19/17 05:33 Acanthocytes (Spur) Not Reportable 02/19/17 05:33 Rouleaux Not Reportable 02/19/17 05:33 Hemoglobin C Crystals Not Reportable 02/19/17 05:33 Schistocytes Not Reportable 02/19/17 05:33 Malaria parasites Not Reportable 02/19/17 05:33 Miguel Bodies Not Reportable 02/19/17 05:33 Hem Pathologist Commnt No 02/19/17 05:33 PT 18.6 Sec. (12.2-14.9) H 02/16/17 20:00 INR 1.47 (0.87-1.13) H 02/16/17 20:00 APTT 37.8 Sec. (24.2-36.6) H 02/16/17 20:00 Sodium 130 mmol/L (137-145) L 02/19/17 05:33 Potassium 5.0 mmol/L (3.6-5.0) 02/19/17 05:33 Chloride 88.5 mmol/L (98-107) L 02/19/17 05:33 Carbon Dioxide 25 mmol/L (22-30) 02/19/17 05:33 Anion Gap 22 mmol/L 02/19/17 05:33 BUN 42 mg/dL (9-20) H 02/19/17 05:33 Creatinine 2.0 mg/dL (0.8-1.5) H 02/19/17 05:33 Estimated GFR 42 ml/min 02/19/17 05:33 BUN/Creatinine Ratio 21.00 % 02/19/17 05:33 Glucose 223 mg/dL (75-100) H 02/19/17 05:33 POC Glucose 222 (70-105) H 02/19/17 12:27 Calcium 8.9 mg/dL (8.4-10.2) 02/19/17 05:33 Phosphorus 2.90 mg/dL (2.5-4.5) 02/19/17 05:33 Magnesium 2.10 mg/dL (1.7-2.3) 02/19/17 05:33 Total Bilirubin 2.50 mg/dL (0.1-1.2) H 02/19/17 05:33 AST 52 units/L (5-40) H 02/19/17 05:33 ALT 28 units/L (7-56) 02/19/17 05:33 Alkaline Phosphatase 182 units/L (35-129) H 02/19/17 05:33 Troponin T 0.100 ng/mL (0.00-0.029) H 02/17/17 03:00 NT-Pro-B Natriuret Pep 2184 pg/mL (0-900) H 02/16/17 20:00 Total Protein 7.2 g/dL (6.3-8.2) 02/19/17 05:33 Albumin 3.4 g/dL (3.9-5) L 02/19/17 05:33 Albumin/Globulin Ratio 0.9 % 02/19/17 05:33 Triglycerides 62 mg/dL (2-149) 02/16/17 20:00 Cholesterol 78 mg/dL (50-199) 02/16/17 20:00 LDL Cholesterol Direct 33 mg/dL (50-130) L 02/16/17 20:00 HDL Cholesterol 33 mg/dL (40-59) L 02/16/17 20:00 Cholesterol/HDL Ratio 2.36 % 02/16/17 20:00
[2017-02-20] MEDS: ZOSYN/NS 3.375GM/50ML 3.375 GM/50 ML BAG IV SCH ×2 (03:26→10:47)
[2017-02-20] MEDS: HEPARIN SUB-Q SCH ×2 (05:38→16:11)
[2017-02-20 07:56] LABS: Hematocrit 33.3 % (35.5-45.6); Hemoglobin 11.2 gm/dl (11.8-15.2); Mean Corpuscular HGB Conc 34 % (32-34); Mean Corpuscular Hemoglobin 27 pg (28-32); Mean Corpuscular Volume 82 fl (84-94); Platelet Count 102 K/mm3 (140-440); Red Blood Count 4.08 M/mm3 (3.65-5.03); White Blood Count 5.8 K/mm3 (4.5-11.0)
[2017-02-20 08:12] LABS: BUN/Creatinine Ratio 18.82; Calcium 8.6 mg/dL (8.4-10.2); Chloride 90.7 mmol/L (98-107); Potassium 4.5 mmol/L (3.6-5.0)
--- NOTE | 2017-02-20 08:51 | Progress Note ---
Assessment and Plan - Patient Problems (1) Acute kidney injury superimposed on chronic kidney disease Current Visit: Yes Status: Acute Plan to address problem: Chronic kidney disease presumably secondary to diabetic nephropathy/ hypertensive nephrosclerosis. Acute kidney injury probably prerenal azotemia secondary to sepsis and volume depletion with hyperglycemia and Osmotic diuresis. Kidney function is improving. Continue to monitor electrolytes and renal function (2) Hypertensive chronic kidney disease with stage 1 through stage 4 chronic kidney disease, or unspecified chronic kidney disease Current Visit: Yes Status: Acute Plan to address problem: Follow-up blood pressure on current medications (3) Chronic systolic heart failure Current Visit: Yes Status: Acute Plan to address problem: Diuretics on hold. Monitor closely (4) Hyponatremia Current Visit: Yes Status: Acute Plan to address problem: Hypovolemic on presentation. Sodium improving (5) Pneumonia Current Visit: Yes Status: Acute Qualifiers: Pneumonia type: P Aspiration pneumonia type: A Laterality: L Lung location: L Plan to address problem: Continue antibiotics but adjust doses based on kidney function (6) Hyperkalemia Current Visit: No Status: Acute Plan to address problem: Potassium is improved (7) Type 2 diabetes mellitus with diabetic chronic kidney disease Current Visit: No Status: Chronic Qualifiers: Diabetes mellitus residential insulin use: D Chronic kidney disease stage: stage 2 (mild) Plan to address problem: Follow blood sugars on current medications. Blood sugar management by primary attending (8) Hemoptysis Current Visit: Yes Status: Acute Plan to address problem: CT chest only showed pneumonia. Continue antibiotics Subjective Date of service: 02/20/17 Principal diagnosis: chronic kidney disease with acute kidney injury Interval history: Patient seen lying in bed. Communicating by writing. He has no complaints. Still having episodes of hemoptysis. Breathing is fine he indicates Objective - Exam Narrative Exam: Middle-aged -Mongolian lying In bed in no acute distress HEENT: NCAT, pink oral mucous membrane Neck: Supple, no venous distention CVS: S1S2 RRR with no murmur, rub or gallop Chest: Bilateral rhonchi Abdomen: Protuberant, soft, nontender, no organomegaly, bowel sounds are present Extremities: No edema Neuro: Awake, alert no focal deficits - Vital Signs Vital signs: Vital Signs - 12hr 02/20/17 02/20/17 04:00 08:31 Pulse Rate 69 O2 Sat by Pulse 97 Oximetry - Lab 02/20/17 06:44 02/20/17 06:44 Most recent lab results Calcium 8.6 mg/dL (8.4-10.2) 02/20/17 06:44 Phosphorus 2.90 mg/dL (2.5-4.5) 02/19/17 05:33 Magnesium 2.10 mg/dL (1.7-2.3) 02/19/17 05:33
[2017-02-20] MEDS: LEVEMIR SUB-Q SCH (10:00)
[2017-02-20] MEDS ORDERED: LEVAQUIN 750MG/150ML 750 MG/150 ML BAG IV SCH (10:00)
[2017-02-20 10:20] LABS: Basophils % (Manual) 0 % (0.0-1.8); Blastocytes % (Manual) 0 %; Eosinophils % (Manual) 0 % (0.0-4.3)
[2017-02-20 10:21] LABS: Anisocytosis 1+; Burr Cells 1+; Diff Status Complete; Elliptocytes Rare; Ovalocytes Few; Platelet Estimate Appears Decreased
[2017-02-20] MEDS: NORVASC PO SCH (10:44)
[2017-02-20] MEDS: LASIX PO SCH (10:45)
[2017-02-20] MEDS: NOVOLOG SUB-Q SCH ×4 (10:46→23:27)
[2017-02-20] MEDS: ZOSYN/NS 4.5GM/100ML 4.5 GM/100 ML VIAL IV SCH (15:50)
[2017-02-20] MEDS ORDERED: VANCOMYCIN 1,750 MG in NACL 0.9% 500 ML 500 ML IV SCH (19:00)
[2017-02-21] MEDS: ZOSYN/NS 4.5GM/100ML 4.5 GM/100 ML VIAL IV SCH ×4 (00:25→22:19)
[2017-02-21] MEDS: NACL 0.9% 1000 ML 1,000 ML IV SCH (00:26)
[2017-02-21 06:16] LABS: Hematocrit 33.1 % (35.5-45.6); Hemoglobin 11.1 gm/dl (11.8-15.2); Mean Corpuscular HGB Conc 34 % (32-34); Mean Corpuscular Hemoglobin 28 pg (28-32); Mean Corpuscular Volume 82 fl (84-94); Platelet Count 131 K/mm3 (140-440); Red Blood Count 4.05 M/mm3 (3.65-5.03); Red Cell Distribution Width 15.4 % (13.2-15.2); White Blood Count 7.1 K/mm3 (4.5-11.0)
[2017-02-21 06:29] LABS: Anion Gap 17 mmol/L; BUN/Creatinine Ratio 20.76; Blood Urea Nitrogen 27 mg/dL (9-20); Calcium 8.5 mg/dL (8.4-10.2); Carbon Dioxide 27 mmol/L (22-30); Chloride 96.7 mmol/L (98-107); Glucose 120 mg/dL (75-100); Lipase 111 units/L (13-60); Potassium 4.4 mmol/L (3.6-5.0); Sodium 136 mmol/L (137-145)
[2017-02-21] MEDS: HEPARIN SUB-Q SCH ×4 (06:49→22:21)
[2017-02-21 07:28] LABS: Anisocytosis 1+; Basophils % (Manual) 0 % (0.0-1.8); Blastocytes % (Manual) 0 %; Eosinophils % (Manual) 0 % (0.0-4.3); Hypochromasia 1+
[2017-02-21 07:29] LABS: Diff Status Complete; Large Platelets Few; Platelet Estimate Consistent w Auto
[2017-02-21] MEDS: NOVOLOG SUB-Q SCH ×4 (07:30→22:50)
--- NOTE | 2017-02-21 08:26 | Progress Note ---
Assessment and Plan - Patient Problems (1) Acute kidney injury superimposed on chronic kidney disease Current Visit: Yes Status: Acute Plan to address problem: Chronic kidney disease presumably secondary to diabetic nephropathy/ hypertensive nephrosclerosis. Acute kidney injury probably prerenal azotemia secondary to sepsis and volume depletion with hyperglycemia and Osmotic diuresis. Kidney function is improving slowly. Continue to monitor electrolytes and renal function (2) Hypertensive chronic kidney disease with stage 1 through stage 4 chronic kidney disease, or unspecified chronic kidney disease Current Visit: Yes Status: Acute Plan to address problem: Follow-up blood pressure on current medications (3) Chronic systolic heart failure Current Visit: Yes Status: Acute Plan to address problem: Diuretics on hold. Monitor closely (4) Hyponatremia Current Visit: Yes Status: Acute Plan to address problem: Hypovolemic on presentation. 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 Blood sugar management by primary attending (8) Hemoptysis Current Visit: Yes Status: Acute Plan to address problem: CT chest only showed pneumonia. Continue antibiotics Subjective Date of service: 02/21/17 Principal diagnosis: chronic kidney disease with acute kidney injury Interval history: Patient seen lying in bed. Communicating by writing. He has no complaints. Still having episodes of hemoptysis. Objective - Exam Narrative Exam: Middle-aged -Slovenian lying In bed in no acute distress HEENT: NCAT, pink oral mucous membrane Neck: Supple, no venous distention CVS: S1S2 RRR with no murmur, rub or gallop Chest: Bilateral rhonchi but improved Abdomen: Protuberant, soft, nontender, no organomegaly, bowel sounds are present Extremities: No edema Neuro: Awake, alert no focal deficits - Vital Signs Vital signs: Vital Signs - 12hr 02/20/17 02/21/17 02/21/17 21:51 00:30 04:24 Temperature 98.5 F 98.4 F Pulse Rate 61 65 Respiratory 20 20 Rate Blood Pressure 118/67 123/80 O2 Sat by Pulse 98 97 99 Oximetry - Lab 02/21/17 05:28 02/21/17 05:28 Most recent lab results Calcium 8.5 mg/dL (8.4-10.2) 02/21/17 05:28 Phosphorus 2.90 mg/dL (2.5-4.5) 02/19/17 05:33 Magnesium 2.10 mg/dL (1.7-2.3) 02/19/17 05:33
--- NOTE | 2017-02-21 09:31 | Ultrasound Report ---
RIGHT UPPER QUADRANT ULTRASOUND: HISTORY: Nausea and vomiting. Technique: Transabdominal ultrasound imaging with Doppler interrogation. FINDINGS: No comparison. The liver is normal size, contour and echotexture. No parenchymal disease or focal mass is identified. No perihepatic ascites. There are numerous tiny shadowing gallstones within the gallbladder. A mild degree of sludge is also identified within the gallbladder. No evidence for gallbladder distention, wall thickening or surrounding fluid. The CBD measures 3.6 mm. The right kidney measures 12.6 cm in length. The right renal parenchyma is echogenic consistent with medical renal disease. No focal renal lesion or hydronephrosis. The pancreas is obscured. The proximal aorta is normal caliber measuring 2.1 cm. IMPRESSION: Cholelithiasis. No secondary findings of acute cholecystitis. Echogenic right kidney consistent with medical renal disease.
[2017-02-21] MEDS: LASIX PO SCH (10:01)
[2017-02-21] MEDS: NORVASC PO SCH (10:01)
[2017-02-21] MEDS: LEVAQUIN 750MG/150ML 750 MG/150 ML BAG IV SCH (10:04)
[2017-02-21] MEDS: LEVEMIR SUB-Q SCH (10:15)
[2017-02-21] MEDS: VANCOMYCIN 1,750 MG in NACL 0.9% 500 ML 500 ML IV SCH ×2 (11:00→22:20)
--- NOTE | 2017-02-21 11:53 | Consultation ---
History of Present Illness Consult date: 02/21/17 Reason for consult: pneumonia (hemoptysis) History of present illness: Called to evaluate case of a 56-year-old -[place] male, who was admitted 5 days ago to the hospital with history of cough and pneumonia. 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 The patient was previously admitted due to cardiomyopathy with low ejection fraction, third- degree AV block. The patient was discharged but came back with the above symptoms. Probably with general malaise and some leukocytosis on presentation. He also started with hemoptysis for the past 4 days and had a noncontrast CT scan which showed left upper lobe airspace consolidation consistent with pneumonia. He has acute on chronic kidney disease which had been on follow-up with nephrology. Currently he feels better, although still coughing significant amounts of sputum with some blood at the bedside. Daily amount has not been measured. WBC monitoring noted below; Laboratory Tests 02/16/17 02/18/17 02/21/17 20:00 05:08 05:28 WBC 13.5 H 7.1 Hgb 11.1 L Hct 33.1 L Band Neutrophils % 23.0 6.0 Past History Past Medical History: diabetes, heart failure, hypertension, renal failure Past Surgical History: Other (Rt ankle surgery ) Social history: denies: smoking, alcohol abuse, prescription drug abuse Family history: hypertension Medications and Allergies Allergies Allergy/AdvReac Type Severity Reaction Status Date / Time No Known Allergies Allergy Verified 02/16/17 22:46 Home Medications Medication Instructions Recorded Confirmed Last Taken Type Furosemide [Lasix TAB] 20 mg PO DAILY 01/22/17 02/16/17 02/16/17 History Nitroglycerin [Nitrostat] 0.4 mg SL PRN PRN 01/22/17 02/16/17 02/16/17 History Insulin Detemir [Levemir] 10 units SUB-Q DAILY units 01/25/17 02/16/17 Rx amLODIPine [Norvasc] 5 mg PO DAILY #30 tab 01/25/17 02/16/17 02/16/17 Rx Active Meds: Active Medications Acetaminophen (Tylenol) 650 mg PO Q4H PRN PRN Reason: Pain MILD(1-3)/Fever >100.5/ROSAS Last Admin: 02/19/17 19:30 Dose: 650 mg Albuterol (Proventil) 2.5 mg IH Q3HRT PRN PRN Reason: Shortness Of Breath Amlodipine Besylate (Norvasc) 5 mg PO DAILY [facility] Last Admin: 02/21/17 10:01 Dose: 5 mg Bisacodyl (Dulcolax) 10 mg CA QDAY PRN PRN Reason: Constipation unrelieved by MOM Dextrose (D50w (25gm) Syringe) 50 ml IV PRN PRN PRN Reason: Hypoglycemia Furosemide (Lasix) 20 mg PO DAILY [facility] Last Admin: 02/21/17 10:01 Dose: 20 mg Heparin Sodium (Porcine) (Heparin) 5,000 unit SUB-Q Q8HR [facility] Last Admin: 02/21/17 06:55 Dose: 5,000 unit Sodium Chloride (Nacl 0.9% 1000 Ml) 1,000 mls @ 50 mls/hr IV DIRECT [facility] Last Admin: 02/21/17 00:26 Dose: 50 mls/hr Levofloxacin/Dextrose (Levaquin 750mg/150ml) 750 mg in 150 mls @ 100 mls/hr IV Q24HR [facility] PRN Reason: Protocol Last Admin: 02/21/17 10:04 Dose: 100 mls/hr Piperacillin Sod/Tazobactam Sod (Zosyn/Ns 4.5gm/100ml) 4.5 gm in 100 mls @ 200 mls/hr IV Q8HR [facility] Last Admin: 02/21/17 06:48 Dose: 200 mls/hr Vancomycin HCl 1,750 mg/ (Sodium Chloride) 517.5 mls @ 333.333 mls/hr IV Q12HR [facility] Insulin Aspart (Novolog) 0 units SUB-Q ACHS [facility] PRN Reason: Protocol Last Admin: 02/20/17 23:27 Dose: 2 units Insulin Detemir (Levemir) 25 units SUB-Q DAILY [facility] Last Admin: 02/21/17 10:15 Dose: 25 units Magnesium Hydroxide (Milk Of Magnesia) 30 ml PO Q4H PRN PRN Reason: Constipation Ondansetron HCl (Zofran) 4 mg IV Q8H PRN PRN Reason: N/V unrelieved by Reglan Vancomycin HCl (Vancomycin Pharmacy To Dose) 1 each IV PKCONSULT [facility] PRN Reason: Protocol Review of Systems Constitutional: fever, fatigue, malaise, no chills, no sweats, no weakness Cardiovascular: orthopnea, palpitations, no chest pain, no rapid/irregular heart beat, no edema, no syncope, no shortness of breath, no dyspnea on exertion Respiratory: hemoptysis, no shortness of breath, no dyspnea on exertion Gastrointestinal: no abdominal pain, no nausea, no vomiting, no diarrhea, no constipation Rectal: no pain Musculoskeletal: no neck stiffness, no neck pain, no shooting arm pain Integumentary: deferred Neurological: no head injury, no transient paralysis, no paralysis, no weakness , no parathesias, no numbness Psychiatric: no anxiety, no memory loss Hematologic/Lymphatic: no easy bruising, no easy bleeding, no lymphadenopathy, no lymphedema, no thrombophilia Allergic/Immunologic: no urticaria Physical Examination Vital signs: Vital Signs Temp Pulse Resp BP Pulse Ox 98.8 F 54 L 18 114/62 95 02/16/17 20:07 02/16/17 20:07 02/16/17 20:07 02/16/17 20:07 02/16/17 20:07 General appearance: no acute distress, alert Eyes: non-icteric ENT: oropharynx moist Neck: supple, no lymphadenopathy Effort: normal Ascultation: Bilateral: rhonchi Cardiovascular: regular rate and rhythm Gastrointestinal: normoactive bowel sounds, non-distended Integumentary: normal Extremities: no cyanosis Musculoskeletal: no deformities normal mental status, non-focal exam mood appropriate, affect normal Results - Laboratory Findings CBC and BMP: 02/21/17 05:28 02/21/17 05:28 PT/INR, D-dimer PT 18.6 Sec. (12.2-14.9) H 02/16/17 20:00 INR 1.47 (0.87-1.13) H 02/16/17 20:00 Abnormal lab findings: Abnormal Labs 02/17/17 02/17/17 02/17/17 03:00 07:56 10:49 Hgb Hct MCV MCH RDW Plt Count Lymphocytes % (Manual) Monocytes % (Manual) Lymphocytes # (Manual) Monocytes # (Manual) Sodium Potassium Chloride BUN Creatinine Glucose POC Glucose 313 H 370 H Iron TIBC Total Bilirubin AST Alkaline Phosphatase Troponin T 0.100 H Albumin Lipase 02/17/17 02/17/17 02/17/17 13:34 14:23 15:59 Hgb Hct MCV MCH RDW Plt Count Lymphocytes % (Manual) Monocytes % (Manual) Lymphocytes # (Manual) Monocytes # (Manual) Sodium Potassium Chloride BUN Creatinine Glucose POC Glucose 430 H 366 H 382 H Iron TIBC Total Bilirubin AST Alkaline Phosphatase Troponin T Albumin Lipase 02/17/17 02/17/17 02/18/17 18:12 21:32 05:08 Hgb 10.8 L Hct 33.0 L MCV 83 L MCH 27 L RDW Plt Count 99 L Lymphocytes % (Manual) 7.0 L Monocytes % (Manual) 12.0 H Lymphocytes # (Manual) 0.5 L Monocytes # (Manual) 0.9 H Sodium Potassium Chloride BUN Creatinine Glucose POC Glucose 434 H 333 H Iron TIBC Total Bilirubin AST Alkaline Phosphatase Troponin T Albumin Lipase 02/18/17 02/18/17 02/18/17 05:08 07:40 12:15 Hgb Hct MCV MCH RDW Plt Count Lymphocytes % (Manual) Monocytes % (Manual) Lymphocytes # (Manual) Monocytes # (Manual) Sodium 127 L Potassium 5.3 H Chloride 89.0 L BUN 47 H Creatinine 2.2 H Glucose 365 H POC Glucose 315 H 350 H Iron TIBC Total Bilirubin AST Alkaline Phosphatase Troponin T Albumin Lipase 02/18/17 02/18/17 02/19/17 16:29 22:07 05:33 Hgb 10.9 L Hct 32.7 L MCV 81 L MCH 27 L RDW Plt Count 88 L Lymphocytes % (Manual) 10.0 L Monocytes % (Manual) 8.0 H Lymphocytes # (Manual) 0.7 L Monocytes # (Manual) Sodium Potassium Chloride BUN Creatinine Glucose POC Glucose 282 H 232 H Iron TIBC Total Bilirubin AST Alkaline Phosphatase Troponin T Albumin Lipase 02/19/17 02/19/17 02/19/17 05:33 08:35 12:27 Hgb Hct MCV MCH RDW Plt Count Lymphocytes % (Manual) Monocytes % (Manual) Lymphocytes # (Manual) Monocytes # (Manual) Sodium 130 L Potassium Chloride 88.5 L BUN 42 H Creatinine 2.0 H Glucose 223 H POC Glucose 233 H 222 H Iron TIBC Total Bilirubin 2.50 H AST 52 H Alkaline Phosphatase 182 H Troponin T Albumin 3.4 L Lipase 02/19/17 02/19/17 02/20/17 17:02 20:50 06:44 Hgb 11.2 L Hct 33.3 L MCV 82 L MCH 27 L RDW Plt Count 102 L Lymphocytes % (Manual) Monocytes % (Manual) 14.0 H Lymphocytes # (Manual) 0.8 L Monocytes # (Manual) Sodium Potassium Chloride BUN Creatinine Glucose POC Glucose 208 H 273 H Iron TIBC Total Bilirubin AST Alkaline Phosphatase Troponin T Albumin Lipase 02/20/17 02/20/17 02/20/17 06:44 06:44 08:02 Hgb Hct MCV MCH RDW Plt Count Lymphocytes % (Manual) Monocytes % (Manual) Lymphocytes # (Manual) Monocytes # (Manual) Sodium 130 L Potassium Chloride 90.7 L BUN 32 H Creatinine 1.7 H Glucose 226 H POC Glucose 231 H Iron 21 L TIBC 224 L Total Bilirubin AST Alkaline Phosphatase Troponin T Albumin Lipase 106 H 02/20/17 02/20/17 02/20/17 13:01 17:41 22:08 Hgb Hct MCV MCH RDW Plt Count Lymphocytes % (Manual) Monocytes % (Manual) Lymphocytes # (Manual) Monocytes # (Manual) Sodium Potassium Chloride BUN Creatinine Glucose POC Glucose 245 H 183 H 180 H Iron TIBC Total Bilirubin AST Alkaline Phosphatase Troponin T Albumin Lipase 02/21/17 02/21/17 05:28 05:28 Hgb 11.1 L Hct 33.1 L MCV 82 L MCH RDW 15.4 H Plt Count 131 L Lymphocytes % (Manual) Monocytes % (Manual) 14.0 H Lymphocytes # (Manual) 1.0 L Monocytes # (Manual) 1.0 H Sodium 136 L Potassium Chloride 96.7 L BUN 27 H Creatinine Glucose 120 H POC Glucose Iron TIBC Total Bilirubin AST Alkaline Phosphatase Troponin T Albumin Lipase 111 H - Diagnostic Findings Chest x-ray: report reviewed CT scan - chest: report reviewed, image reviewed Assessment and Plan Hospital-acquired pneumonia. CT scan consistent with airspace consolidation possible necrotizing pneumonia. Hemoptysis. Most likely secondary to pneumonia at this point. Acute on chronic kidney injury Cardiomyopathy, CHF with low ejection fraction [place] Recommendations Continue Levaquin,vanco and adjust to renal clearance/GFR Sputum culture and Gram stain Monitor hemoptysis output that measured daily. Out of bed as tolerated DVT prophylaxis
--- NOTE | 2017-02-21 12:03 | Progress Note ---
Assessment and Plan Assessment and plan: Sepsis secondary to pneumonia likely hospital-acquired Cultures obtained Continue IV antibiotics dosed for renal function Pneumonia. CT chest showed left upper lobe pneumonia. Consult pulmonology Hemoptysis due to Pneumonia. hemoptysis is mild. Acute renal failure Likely secondary to vasomotor nephropathy Nephrology consulted and additional workup in progress Creatinine 1.3 today Acute on chronic systolic heart failure/Cardiomyopathy Echo showing decreased LV function EF 30-35%, diastolic dysfunction and moderate pulmonary hypertension Not on BB because of history of AV block Not on ACEI due to renal insufficiency Hypertension Currently on amlodipine Blood pressure stable Pancreatitis Nausea, vomiting Lipase slightly elevated Triglycerides within normal limits Diabetes mellitus type 2 Blood sugars uncontrolled but improving. Continue Levemir 25Units subcut daily. Hyponatremia Likely pseudohyponatremia due to hyperglycemia Monitor Thrombocytopenia Possibly secondary to sepsis Platelet count improving 131 today DVT prophylaxis with Heparin History Interval history: Coughing up sputum with some blood, shortness of breath Hospitalist Physical - Physical exam Narrative exam: Gen Appearance: Not in acute distress, obese HEENT: hearing impaired Neck: supple, no JVD Lungs: Coarse breath sounds, no wheeze Heart: S1 and S2 regular, no murmurs, rubs or gallop Abdomen: Soft , non tender, non distended, normal bowel sounds Extremity: No edema, no clubbing or cyanosis Neuro : Awake,alert, oriented, moves all extremities, cannot talk - Constitutional Vitals: Temp Pulse Resp BP Pulse Ox 98.3 F 65 18 121/76 97 02/21/17 09:59 02/21/17 10:01 02/21/17 09:59 02/21/17 10:01 02/21/17 10:00 General appearance: Present: no acute distress, obese Results - Labs CBC & Chem 7: 02/21/17 05:28 02/21/17 05:28 Labs: Laboratory Last Values WBC 7.1 K/mm3 (4.5-11.0) 02/21/17 05:28 RBC 4.05 M/mm3 (3.65-5.03) 02/21/17 05:28 Hgb 11.1 gm/dl (11.8-15.2) L 02/21/17 05:28 Hct 33.1 % (35.5-45.6) L 02/21/17 05:28 MCV 82 fl (84-94) L 02/21/17 05:28 MCH 28 pg (28-32) 02/21/17 05:28 MCHC 34 % (32-34) 02/21/17 05:28 RDW 15.4 % (13.2-15.2) H 02/21/17 05:28 Plt Count 131 K/mm3 (140-440) L 02/21/17 05:28 Lymph % (Auto) 8.6 % (13.4-35.0) L 02/16/17 20:00 [place] % (Auto) Customer Care Team Coach 02/21/17 05:28 Eos % (Auto) 0.0 % (0.0-4.3) 02/16/17 20:00 Baso % (Auto) 0.3 % (0.0-1.8) 02/16/17 20:00 Lymph # 1.2 K/mm3 (1.2-5.4) 02/16/17 20:00 [place] # 1.7 K/mm3 (0.0-0.8) H 02/16/17 20:00 Eos # 0.0 K/mm3 (0.0-0.4) 02/16/17 20:00 Baso # 0.0 K/mm3 (0.0-0.1) 02/16/17 20:00 Add Manual Diff Complete 02/21/17 05:28 Total Counted 100 02/21/17 05:28 Seg Neutrophils % 78.6 % (40.0-70.0) H 02/16/17 20:00 Seg Neuts % (Manual) 66.0 % (40.0-70.0) 02/21/17 05:28 Band Neutrophils % 6.0 % 02/21/17 05:28 Lymphocytes % (Manual) 14.0 % (13.4-35.0) 02/21/17 05:28 Reactive Lymphs % (Man) 0 % 02/21/17 05:28 Monocytes % (Manual) 14.0 % (0.0-7.3) H 02/21/17 05:28 Eosinophils % (Manual) 0 % (0.0-4.3) 02/21/17 05:28 Basophils % (Manual) 0 % (0.0-1.8) 02/21/17 05:28 Metamyelocytes % 0 % 02/21/17 05:28 Myelocytes % 0 % 02/21/17 05:28 Promyelocytes % 0 % 02/21/17 05:28 Blast Cells % 0 % 02/21/17 05:28 Nucleated RBC % Not Reportable 02/21/17 05:28 Seg Neutrophils # 10.6 K/mm3 (1.8-7.7) H 02/16/17 20:00 Seg Neutrophils # Man 4.7 K/mm3 (1.8-7.7) 02/21/17 05:28 Band Neutrophils # 0.4 K/mm3 02/21/17 05:28 Lymphocytes # (Manual) 1.0 K/mm3 (1.2-5.4) L 02/21/17 05:28 Abs React Lymphs (Man) 0.0 K/mm3 02/21/17 05:28 Monocytes # (Manual) 1.0 K/mm3 (0.0-0.8) H 02/21/17 05:28 Eosinophils # (Manual) 0.0 K/mm3 (0.0-0.4) 02/21/17 05:28 Basophils # (Manual) 0.0 K/mm3 (0.0-0.1) 02/21/17 05:28 Metamyelocytes # 0.0 K/mm3 02/21/17 05:28 Myelocytes # 0.0 K/mm3 02/21/17 05:28 Promyelocytes # 0.0 K/mm3 02/21/17 05:28 Blast Cells # 0.0 K/mm3 02/21/17 05:28 WBC Morphology Not Reportable 02/21/17 05:28 Hypersegmented Neuts Not Reportable 02/21/17 05:28 Hyposegmented Neuts Not Reportable 02/21/17 05:28 Hypogranular Neuts Not Reportable 02/21/17 05:28 Smudge Cells Not Reportable 02/21/17 05:28 Toxic Granulation Not Reportable 02/21/17 05:28 Toxic Vacuolation Not Reportable 02/21/17 05:28 Dohle Bodies Not Reportable 02/21/17 05:28 Pelger-Huet Anomaly Not Reportable 02/21/17 05:28 Vivek Rods Not Reportable 02/21/17 05:28 Platelet Estimate Consistent w auto 02/21/17 05:28 Clumped Platelets Not Reportable 02/21/17 05:28 Plt Clumps, EDTA Not Reportable 02/21/17 05:28 Large Platelets Few 02/21/17 05:28 Giant Platelets Not Reportable 02/21/17 05:28 Platelet Satelliting Not Reportable 02/21/17 05:28 Plt Morphology Comment Not Reportable 02/21/17 05:28 RBC Morphology Not Reportable 02/21/17 05:28 Dimorphic RBCs Not Reportable 02/21/17 05:28 Polychromasia Not Reportable 02/21/17 05:28 Hypochromasia 1+ 02/21/17 05:28 Poikilocytosis Not Reportable 02/21/17 05:28 Anisocytosis 1+ 02/21/17 05:28 Microcytosis Not Reportable 02/21/17 05:28 Macrocytosis Not Reportable 02/21/17 05:28 Spherocytes Not Reportable 02/21/17 05:28 Pappenheimer Bodies Not Reportable 02/21/17 05:28 Sickle Cells Not Reportable 02/21/17 05:28 Target Cells Not Reportable 02/21/17 05:28 Tear Drop Cells Not Reportable 02/21/17 05:28 Ovalocytes Not Reportable 02/21/17 05:28 Helmet Cells Not Reportable 02/21/17 05:28 [place] Bodies Not Reportable 02/21/17 05:28 [place] Rings Not Reportable 02/21/17 05:28 [place] Cells Not Reportable 02/21/17 05:28 Bite Cells Not Reportable 02/21/17 05:28 Crenated Cell Not Reportable 02/21/17 05:28 Elliptocytes Not Reportable 02/21/17 05:28 Acanthocytes (Spur) Not Reportable 02/21/17 05:28 Rouleaux Not Reportable 02/21/17 05:28 Hemoglobin C Crystals Not Reportable 02/21/17 05:28 Schistocytes Not Reportable 02/21/17 05:28 Malaria parasites Not Reportable 02/21/17 05:28 Miguel Bodies Not Reportable 02/21/17 05:28 Hem Pathologist Commnt No 02/21/17 05:28 PT 18.6 Sec. (12.2-14.9) H 02/16/17 20:00 INR 1.47 (0.87-1.13) H 02/16/17 20:00 APTT 37.8 Sec. (24.2-36.6) H 02/16/17 20:00 Sodium 136 mmol/L (137-145) L 02/21/17 05:28 Potassium 4.4 mmol/L (3.6-5.0) 02/21/17 05:28 Chloride 96.7 mmol/L (98-107) L 02/21/17 05:28 Carbon Dioxide 27 mmol/L (22-30) 02/21/17 05:28 Anion Gap 17 mmol/L 02/21/17 05:28 BUN 27 mg/dL (9-20) H 02/21/17 05:28 Creatinine 1.3 mg/dL (0.8-1.5) 02/21/17 05:28 Estimated GFR > 60 ml/min 02/21/17 05:28 BUN/Creatinine Ratio 20.76 % 02/21/17 05:28 Glucose 120 mg/dL (75-100) H 02/21/17 05:28 POC Glucose 180 (70-105) H 02/20/17 22:08 Calcium 8.5 mg/dL (8.4-10.2) 02/21/17 05:28 Phosphorus 2.90 mg/dL (2.5-4.5) 02/19/17 05:33 Magnesium 2.10 mg/dL (1.7-2.3) 02/19/17 05:33 Iron 21 ug/dL (49-181) L 02/20/17 06:44 TIBC 224 mcg/dL (250-450) L 02/20/17 06:44 Total Bilirubin 2.50 mg/dL (0.1-1.2) H 02/19/17 05:33 AST 52 units/L (5-40) H 02/19/17 05:33 ALT 28 units/L (7-56) 02/19/17 05:33 Alkaline Phosphatase 182 units/L (35-129) H 02/19/17 05:33 Troponin T 0.100 ng/mL (0.00-0.029) H 02/17/17 03:00 NT-Pro-B Natriuret Pep 2184 pg/mL (0-900) H 02/16/17 20:00 Total Protein 7.2 g/dL (6.3-8.2) 02/19/17 05:33 Albumin 3.4 g/dL (3.9-5) L 02/19/17 05:33 Albumin/Globulin Ratio 0.9 % 02/19/17 05:33 Triglycerides 62 mg/dL (2-149) 02/16/17 20:00 Cholesterol 78 mg/dL (50-199) 02/16/17 20:00 LDL Cholesterol Direct 33 mg/dL (50-130) L 02/16/17 20:00 HDL Cholesterol 33 mg/dL (40-59) L 02/16/17 20:00 Cholesterol/HDL Ratio 2.36 % 02/16/17 20:00 Amylase 61 units/L (27-131) 02/20/17 06:44 Lipase 111 units/L (13-60) H 02/21/17 05:28
[2017-02-22] MEDS: ZOSYN/NS 4.5GM/100ML 4.5 GM/100 ML VIAL IV SCH ×3 (06:05→21:33)
[2017-02-22] MEDS: HEPARIN SUB-Q SCH ×3 (06:06→21:34)
[2017-02-22 07:24] LABS: Hematocrit 33.4 % (35.5-45.6); Hemoglobin 10.8 gm/dl (11.8-15.2); Mean Corpuscular HGB Conc 32 % (32-34); Mean Corpuscular Hemoglobin 26 pg (28-32); Mean Corpuscular Volume 82 fl (84-94); Platelet Count 158 K/mm3 (140-440); Red Blood Count 4.07 M/mm3 (3.65-5.03); Red Cell Distribution Width 15.2 % (13.2-15.2); White Blood Count 6.5 K/mm3 (4.5-11.0)
[2017-02-22 07:43] LABS: Anion Gap 14 mmol/L; BUN/Creatinine Ratio 16.92; Blood Urea Nitrogen 22 mg/dL (9-20); Calcium 8.6 mg/dL (8.4-10.2); Carbon Dioxide 27 mmol/L (22-30); Chloride 98.8 mmol/L (98-107); Glucose 144 mg/dL (75-100); Potassium 4.2 mmol/L (3.6-5.0); Sodium 136 mmol/L (137-145)
[2017-02-22] MEDS: NOVOLOG SUB-Q SCH ×4 (08:23→21:41)
[2017-02-22] MEDS: LEVEMIR SUB-Q SCH (09:06)
[2017-02-22] MEDS: LEVAQUIN 750MG/150ML 750 MG/150 ML BAG IV SCH (09:06)
[2017-02-22] MEDS: NORVASC PO SCH (09:06)
[2017-02-22] MEDS: LASIX PO SCH (09:06)
[2017-02-22] MEDS: VANCOMYCIN 1,750 MG in NACL 0.9% 500 ML 500 ML IV SCH ×2 (11:53→21:34)
--- NOTE | 2017-02-22 13:21 | Progress Note ---
Assessment and Plan Hospital-acquired pneumonia. CT scan consistent with airspace consolidation possible necrotizing pneumonia.Improving Hemoptysis. Most likely secondary to pneumonia at this point.Improving Acute on chronic kidney injury Cardiomyopathy, CHF with low ejection fraction [place] Recommendations Complete ABX Check sputum culture and Gram stain Monitor hemoptysis Out of bed as tolerated DVT prophylaxis Subjective Date of service: 02/22/17 Principal diagnosis: chronic kidney disease with acute kidney injury Interval history: Improved cough.No hemoptysis.Feels better.Daughter translating at bedside Objective Vital Signs - 12hr 02/22/17 02/22/17 02/22/17 04:47 09:06 10:24 Temperature 98.3 F Pulse Rate 64 64 Respiratory 20 Rate Blood Pressure 123/74 Blood Pressure 123/74 [Right] O2 Sat by Pulse 93 95 Oximetry Constitutional: no acute distress, alert Eyes: non-icteric ENT: oropharynx moist Neck: supple, no lymphadenopathy Effort: normal Ascultation: Bilateral: clear, diminished breath sounds Cardiovascular: regular rate and rhythm Gastrointestinal: normoactive bowel sounds, non-distended Integumentary: normal Extremities: no cyanosis Neurologic: normal mental status, non-focal exam Psychiatric: mood appropriate, affect normal CBC and BMP: 02/22/17 07:04 02/22/17 07:04 ABG, PT/INR, D-dimer: PT/INR, D-dimer PT 18.6 Sec. (12.2-14.9) H 02/16/17 20:00 INR 1.47 (0.87-1.13) H 02/16/17 20:00 Abnormal lab findings: Abnormal Labs 02/17/17 02/17/17 02/17/17 03:00 07:56 10:49 Hgb Hct MCV MCH RDW Plt Count Lymphocytes % (Manual) Monocytes % (Manual) Lymphocytes # (Manual) Monocytes # (Manual) Sodium Potassium Chloride BUN Creatinine Glucose POC Glucose 313 H 370 H Iron TIBC Total Bilirubin AST Alkaline Phosphatase Troponin T 0.100 H Albumin Lipase 02/17/17 02/17/17 02/17/17 13:34 14:23 15:59 Hgb Hct MCV MCH RDW Plt Count Lymphocytes % (Manual) Monocytes % (Manual) Lymphocytes # (Manual) Monocytes # (Manual) Sodium Potassium Chloride BUN Creatinine Glucose POC Glucose 430 H 366 H 382 H Iron TIBC Total Bilirubin AST Alkaline Phosphatase Troponin T Albumin Lipase 02/17/17 02/17/17 02/18/17 18:12 21:32 05:08 Hgb 10.8 L Hct 33.0 L MCV 83 L MCH 27 L RDW Plt Count 99 L Lymphocytes % (Manual) 7.0 L Monocytes % (Manual) 12.0 H Lymphocytes # (Manual) 0.5 L Monocytes # (Manual) 0.9 H Sodium Potassium Chloride BUN Creatinine Glucose POC Glucose 434 H 333 H Iron TIBC Total Bilirubin AST Alkaline Phosphatase Troponin T Albumin Lipase 02/18/17 02/18/17 02/18/17 05:08 07:40 12:15 Hgb Hct MCV MCH RDW Plt Count Lymphocytes % (Manual) Monocytes % (Manual) Lymphocytes # (Manual) Monocytes # (Manual) Sodium 127 L Potassium 5.3 H Chloride 89.0 L BUN 47 H Creatinine 2.2 H Glucose 365 H POC Glucose 315 H 350 H Iron TIBC Total Bilirubin AST Alkaline Phosphatase Troponin T Albumin Lipase 02/18/17 02/18/17 02/19/17 16:29 22:07 05:33 Hgb 10.9 L Hct 32.7 L MCV 81 L MCH 27 L RDW Plt Count 88 L Lymphocytes % (Manual) 10.0 L Monocytes % (Manual) 8.0 H Lymphocytes # (Manual) 0.7 L Monocytes # (Manual) Sodium Potassium Chloride BUN Creatinine Glucose POC Glucose 282 H 232 H Iron TIBC Total Bilirubin AST Alkaline Phosphatase Troponin T Albumin Lipase 02/19/17 02/19/17 02/19/17 05:33 08:35 12:27 Hgb Hct MCV MCH RDW Plt Count Lymphocytes % (Manual) Monocytes % (Manual) Lymphocytes # (Manual) Monocytes # (Manual) Sodium 130 L Potassium Chloride 88.5 L BUN 42 H Creatinine 2.0 H Glucose 223 H POC Glucose 233 H 222 H Iron TIBC Total Bilirubin 2.50 H AST 52 H Alkaline Phosphatase 182 H Troponin T Albumin 3.4 L Lipase 02/19/17 02/19/17 02/20/17 17:02 20:50 06:44 Hgb 11.2 L Hct 33.3 L MCV 82 L MCH 27 L RDW Plt Count 102 L Lymphocytes % (Manual) Monocytes % (Manual) 14.0 H Lymphocytes # (Manual) 0.8 L Monocytes # (Manual) Sodium Potassium Chloride BUN Creatinine Glucose POC Glucose 208 H 273 H Iron TIBC Total Bilirubin AST Alkaline Phosphatase Troponin T Albumin Lipase 02/20/17 02/20/17 02/20/17 06:44 06:44 08:02 Hgb Hct MCV MCH RDW Plt Count Lymphocytes % (Manual) Monocytes % (Manual) Lymphocytes # (Manual) Monocytes # (Manual) Sodium 130 L Potassium Chloride 90.7 L BUN 32 H Creatinine 1.7 H Glucose 226 H POC Glucose 231 H Iron 21 L TIBC 224 L Total Bilirubin AST Alkaline Phosphatase Troponin T Albumin Lipase 106 H 02/20/17 02/20/17 02/20/17 13:01 17:41 22:08 Hgb Hct MCV MCH RDW Plt Count Lymphocytes % (Manual) Monocytes % (Manual) Lymphocytes # (Manual) Monocytes # (Manual) Sodium Potassium Chloride BUN Creatinine Glucose POC Glucose 245 H 183 H 180 H Iron TIBC Total Bilirubin AST Alkaline Phosphatase Troponin T Albumin Lipase 02/21/17 02/21/17 02/21/17 05:28 05:28 10:17 Hgb 11.1 L Hct 33.1 L MCV 82 L MCH RDW 15.4 H Plt Count 131 L Lymphocytes % (Manual) Monocytes % (Manual) 14.0 H Lymphocytes # (Manual) 1.0 L Monocytes # (Manual) 1.0 H Sodium 136 L Potassium Chloride 96.7 L BUN 27 H Creatinine Glucose 120 H POC Glucose 202 H Iron TIBC Total Bilirubin AST Alkaline Phosphatase Troponin T Albumin Lipase 111 H 02/21/17 02/21/17 02/21/17 12:32 17:11 21:58 Hgb Hct MCV MCH RDW Plt Count Lymphocytes % (Manual) Monocytes % (Manual) Lymphocytes # (Manual) Monocytes # (Manual) Sodium Potassium Chloride BUN Creatinine Glucose POC Glucose 187 H 146 H 223 H Iron TIBC Total Bilirubin AST Alkaline Phosphatase Troponin T Albumin Lipase 02/22/17 02/22/17 02/22/17 07:04 07:04 08:23 Hgb 10.8 L Hct 33.4 L MCV 82 L MCH 26 L RDW Plt Count Lymphocytes % (Manual) Monocytes % (Manual) Lymphocytes # (Manual) Monocytes # (Manual) Sodium 136 L Potassium Chloride BUN 22 H Creatinine Glucose 144 H POC Glucose 165 H Iron TIBC Total Bilirubin AST Alkaline Phosphatase Troponin T Albumin Lipase 02/22/17 12:42 Hgb Hct MCV MCH RDW Plt Count Lymphocytes % (Manual) Monocytes % (Manual) Lymphocytes # (Manual) Monocytes # (Manual) Sodium Potassium Chloride BUN Creatinine Glucose POC Glucose 203 H Iron TIBC Total Bilirubin AST Alkaline Phosphatase Troponin T Albumin Lipase
--- NOTE | 2017-02-22 15:24 | Progress Note ---
Assessment and Plan - Patient Problems (1) Acute kidney injury superimposed on chronic kidney disease Current Visit: Yes Status: Acute Plan to address problem: Chronic kidney disease presumably secondary to diabetic nephropathy/ hypertensive nephrosclerosis. Acute kidney injury probably prerenal azotemia secondary to sepsis and volume depletion with hyperglycemia and Osmotic diuresis. Kidney function continues to improve. Continue to monitor electrolytes and renal function (2) Hypertensive chronic kidney disease with stage 1 through stage 4 chronic kidney disease, or unspecified chronic kidney disease Current Visit: Yes Status: Acute Plan to address problem: Follow-up blood pressure on current medications (3) Chronic systolic heart failure Current Visit: Yes Status: Acute Plan to address problem: Diuretics on hold. Monitor closely (4) Hyponatremia Current Visit: Yes Status: Acute Plan to address problem: Hypovolemic on presentation. 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 Blood sugar management by primary attending (8) Hemoptysis Current Visit: Yes Status: Acute Plan to address problem: CT chest only showed pneumonia. Hemoptysis is resolving. Continue antibiotics Subjective Date of service: 02/22/17 Principal diagnosis: chronic kidney disease with acute kidney injury Interval history: Patient seen lying in bed. Communicating by writing. He has no complaints. Still having episodes of hemoptysis but it is much better now. Objective - Exam Narrative Exam: Middle-aged -[place] lying In bed in no acute distress HEENT: NCAT, pink oral mucous membrane Neck: Supple, no venous distention CVS: S1S2 RRR with no murmur, rub or gallop Chest: Bilateral rhonchi but improved Abdomen: Protuberant, soft, nontender, no organomegaly, bowel sounds are present Extremities: No edema Neuro: Awake, alert no focal deficits - Vital Signs Vital signs: Vital Signs - 12hr 02/22/17 02/22/17 02/22/17 04:47 09:06 10:24 Temperature 98.3 F Pulse Rate 64 64 Respiratory 20 Rate Blood Pressure 123/74 Blood Pressure 123/74 [Right] O2 Sat by Pulse 93 95 Oximetry - Lab 02/22/17 07:04 02/22/17 07:04 Most recent lab results Calcium 8.6 mg/dL (8.4-10.2) 02/22/17 07:04 Phosphorus 2.90 mg/dL (2.5-4.5) 02/19/17 05:33 Magnesium 2.10 mg/dL (1.7-2.3) 02/19/17 05:33
--- NOTE | 2017-02-22 17:18 | Progress Note ---
Assessment and Plan Assessment and plan: Sepsis secondary to pneumonia likely hospital-acquired Cultures obtained Continue IV antibiotics dosed for renal function Pneumonia. CT chest showed left upper lobe pneumonia. Consulted pulmonology and he was evaluated by Dr. Vega Hemoptysis due to Pneumonia. Hemoptysis is improving, blood-tinged sputum. Acute renal failure Likely secondary to vasomotor nephropathy Nephrology consulted and additional workup in progress Creatinine 1.3 today Acute on chronic systolic heart failure/Cardiomyopathy Echo showing decreased LV function EF 30-35%, diastolic dysfunction and moderate pulmonary hypertension Not on BB because of history of AV block Not on ACEI due to renal insufficiency Hypertension Currently on amlodipine Blood pressure stable Pancreatitis Nausea, vomiting Lipase slightly elevated Triglycerides within normal limits Diabetes mellitus type 2 Blood sugars uncontrolled but improving. Continue Levemir 25Units subcut daily. Serum Glucose 144 this morning Hyponatremia Likely pseudohyponatremia due to hyperglycemia Monitor Thrombocytopenia Possibly secondary to sepsis Platelet count improving 158 today DVT prophylaxis with Heparin. Mute/deafness. I discussed with patient at bedside. Likely discharge home tomorrow. History Interval history: Coughing up less blood tinged sputum less shortness of breath Hospitalist Physical - Physical exam Narrative exam: Gen Appearance: Not in acute distress, obese HEENT: hearing impaired Neck: supple, no JVD Lungs: Coarse breath sounds, no wheeze Heart: S1 and S2 regular, no murmurs, rubs or gallop Abdomen: Soft , non tender, non distended, normal bowel sounds Extremity: No edema, no clubbing or cyanosis Neuro : Awake,alert, oriented, moves all extremities, mute,deaf - Constitutional Vitals: Temp Pulse Resp BP Pulse Ox 98.3 F 71 20 123/74 95 02/22/17 04:47 02/22/17 14:00 02/22/17 04:47 02/22/17 09:06 02/22/17 10:24 General appearance: Present: no acute distress, obese Results - Labs CBC & Chem 7: 02/22/17 07:04 02/22/17 07:04 Labs: Laboratory Last Values WBC 6.5 K/mm3 (4.5-11.0) 02/22/17 07:04 RBC 4.07 M/mm3 (3.65-5.03) 02/22/17 07:04 Hgb 10.8 gm/dl (11.8-15.2) L 02/22/17 07:04 Hct 33.4 % (35.5-45.6) L 02/22/17 07:04 MCV 82 fl (84-94) L 02/22/17 07:04 MCH 26 pg (28-32) L 02/22/17 07:04 MCHC 32 % (32-34) 02/22/17 07:04 RDW 15.2 % (13.2-15.2) 02/22/17 07:04 Plt Count 158 K/mm3 (140-440) 02/22/17 07:04 Lymph % (Auto) 8.6 % (13.4-35.0) L 02/16/17 20:00 [place]uel % (Auto) Conductor Symphonic Orchestra 02/21/17 05:28 Eos % (Auto) 0.0 % (0.0-4.3) 02/16/17 20:00 Baso % (Auto) 0.3 % (0.0-1.8) 02/16/17 20:00 Lymph # 1.2 K/mm3 (1.2-5.4) 02/16/17 20:00 Deuel # 1.7 K/mm3 (0.0-0.8) H 02/16/17 20:00 Eos # 0.0 K/mm3 (0.0-0.4) 02/16/17 20:00 Baso # 0.0 K/mm3 (0.0-0.1) 02/16/17 20:00 Add Manual Diff Complete 02/21/17 05:28 Total Counted 100 02/21/17 05:28 Seg Neutrophils % 78.6 % (40.0-70.0) H 02/16/17 20:00 Seg Neuts % (Manual) 66.0 % (40.0-70.0) 02/21/17 05:28 Band Neutrophils % 6.0 % 02/21/17 05:28 Lymphocytes % (Manual) 14.0 % (13.4-35.0) 02/21/17 05:28 Reactive Lymphs % (Man) 0 % 02/21/17 05:28 Monocytes % (Manual) 14.0 % (0.0-7.3) H 02/21/17 05:28 Eosinophils % (Manual) 0 % (0.0-4.3) 02/21/17 05:28 Basophils % (Manual) 0 % (0.0-1.8) 02/21/17 05:28 Metamyelocytes % 0 % 02/21/17 05:28 Myelocytes % 0 % 02/21/17 05:28 Promyelocytes % 0 % 02/21/17 05:28 Blast Cells % 0 % 02/21/17 05:28 Nucleated RBC % Not Reportable 02/21/17 05:28 Seg Neutrophils # 10.6 K/mm3 (1.8-7.7) H 02/16/17 20:00 Seg Neutrophils # Man 4.7 K/mm3 (1.8-7.7) 02/21/17 05:28 Band Neutrophils # 0.4 K/mm3 02/21/17 05:28 Lymphocytes # (Manual) 1.0 K/mm3 (1.2-5.4) L 02/21/17 05:28 Abs React Lymphs (Man) 0.0 K/mm3 02/21/17 05:28 Monocytes # (Manual) 1.0 K/mm3 (0.0-0.8) H 02/21/17 05:28 Eosinophils # (Manual) 0.0 K/mm3 (0.0-0.4) 02/21/17 05:28 Basophils # (Manual) 0.0 K/mm3 (0.0-0.1) 02/21/17 05:28 Metamyelocytes # 0.0 K/mm3 02/21/17 05:28 Myelocytes # 0.0 K/mm3 02/21/17 05:28 Promyelocytes # 0.0 K/mm3 02/21/17 05:28 Blast Cells # 0.0 K/mm3 02/21/17 05:28 WBC Morphology Not Reportable 02/21/17 05:28 Hypersegmented Neuts Not Reportable 02/21/17 05:28 Hyposegmented Neuts Not Reportable 02/21/17 05:28 Hypogranular Neuts Not Reportable 02/21/17 05:28 Smudge Cells Not Reportable 02/21/17 05:28 Toxic Granulation Not Reportable 02/21/17 05:28 Toxic Vacuolation Not Reportable 02/21/17 05:28 Dohle Bodies Not Reportable 02/21/17 05:28 Pelger-Huet Anomaly Not Reportable 02/21/17 05:28 Vivek Rods Not Reportable 02/21/17 05:28 Platelet Estimate Consistent w auto 02/21/17 05:28 Clumped Platelets Not Reportable 02/21/17 05:28 Plt Clumps, EDTA Not Reportable 02/21/17 05:28 Large Platelets Few 02/21/17 05:28 Giant Platelets Not Reportable 02/21/17 05:28 Platelet Satelliting Not Reportable 02/21/17 05:28 Plt Morphology Comment Not Reportable 02/21/17 05:28 RBC Morphology Not Reportable 02/21/17 05:28 Dimorphic RBCs Not Reportable 02/21/17 05:28 Polychromasia Not Reportable 02/21/17 05:28 Hypochromasia 1+ 02/21/17 05:28 Poikilocytosis Not Reportable 02/21/17 05:28 Anisocytosis 1+ 02/21/17 05:28 Microcytosis Not Reportable 02/21/17 05:28 Macrocytosis Not Reportable 02/21/17 05:28 Spherocytes Not Reportable 02/21/17 05:28 Pappenheimer Bodies Not Reportable 02/21/17 05:28 Sickle Cells Not Reportable 02/21/17 05:28 Target Cells Not Reportable 02/21/17 05:28 Tear Drop Cells Not Reportable 02/21/17 05:28 Ovalocytes Not Reportable 02/21/17 05:28 Helmet Cells Not Reportable 02/21/17 05:28 Villarreal-Brockway Bodies Not Reportable 02/21/17 05:28 [place] Rings Not Reportable 02/21/17 05:28 [place] Cells Not Reportable 02/21/17 05:28 Bite Cells Not Reportable 02/21/17 05:28 Crenated Cell Not Reportable 02/21/17 05:28 Elliptocytes Not Reportable 02/21/17 05:28 Acanthocytes (Spur) Not Reportable 02/21/17 05:28 Rouleaux Not Reportable 02/21/17 05:28 Hemoglobin C Crystals Not Reportable 02/21/17 05:28 Schistocytes Not Reportable 02/21/17 05:28 Malaria parasites Not Reportable 02/21/17 05:28 Miguel Bodies Not Reportable 02/21/17 05:28 Hem Pathologist Commnt No 02/21/17 05:28 PT 18.6 Sec. (12.2-14.9) H 02/16/17 20:00 INR 1.47 (0.87-1.13) H 02/16/17 20:00 APTT 37.8 Sec. (24.2-36.6) H 02/16/17 20:00 Sodium 136 mmol/L (137-145) L 02/22/17 07:04 Potassium 4.2 mmol/L (3.6-5.0) 02/22/17 07:04 Chloride 98.8 mmol/L (98-107) 02/22/17 07:04 Carbon Dioxide 27 mmol/L (22-30) 02/22/17 07:04 Anion Gap 14 mmol/L 02/22/17 07:04 BUN 22 mg/dL (9-20) H 02/22/17 07:04 Creatinine 1.3 mg/dL (0.8-1.5) 02/22/17 07:04 Estimated GFR > 60 ml/min 02/22/17 07:04 BUN/Creatinine Ratio 16.92 % 02/22/17 07:04 Glucose 144 mg/dL (75-100) H 02/22/17 07:04 POC Glucose 203 (70-105) H 02/22/17 12:42 Calcium 8.6 mg/dL (8.4-10.2) 02/22/17 07:04 Phosphorus 2.90 mg/dL (2.5-4.5) 02/19/17 05:33 Magnesium 2.10 mg/dL (1.7-2.3) 02/19/17 05:33 Iron 21 ug/dL (49-181) L 02/20/17 06:44 TIBC 224 mcg/dL (250-450) L 02/20/17 06:44 Total Bilirubin 2.50 mg/dL (0.1-1.2) H 02/19/17 05:33 AST 52 units/L (5-40) H 02/19/17 05:33 ALT 28 units/L (7-56) 02/19/17 05:33 Alkaline Phosphatase 182 units/L (35-129) H 02/19/17 05:33 Troponin T 0.100 ng/mL (0.00-0.029) H 02/17/17 03:00 NT-Pro-B Natriuret Pep 2184 pg/mL (0-900) H 02/16/17 20:00 Total Protein 7.2 g/dL (6.3-8.2) 02/19/17 05:33 Albumin 3.4 g/dL (3.9-5) L 02/19/17 05:33 Albumin/Globulin Ratio 0.9 % 02/19/17 05:33 Triglycerides 62 mg/dL (2-149) 02/16/17 20:00 Cholesterol 78 mg/dL (50-199) 02/16/17 20:00 LDL Cholesterol Direct 33 mg/dL (50-130) L 02/16/17 20:00 HDL Cholesterol 33 mg/dL (40-59) L 02/16/17 20:00 Cholesterol/HDL Ratio 2.36 % 02/16/17 20:00 Amylase 61 units/L (27-131) 02/20/17 06:44 Lipase 111 units/L (13-60) H 02/21/17 05:28
[2017-02-23] MEDS: ZOSYN/NS 4.5GM/100ML 4.5 GM/100 ML VIAL IV SCH (05:50)
[2017-02-23] MEDS: HEPARIN SUB-Q SCH (05:51)
[2017-02-23] MEDS: NACL 0.9% 1000 ML 1,000 ML IV SCH (08:02)
[2017-02-23] MEDS: NOVOLOG SUB-Q SCH ×2 (08:30→12:54)
[2017-02-23 09:51] VITALS: BP 138/81
--- NOTE | 2017-02-23 10:03 | Progress Note ---
Assessment and Plan - Patient Problems (1) Acute kidney injury superimposed on chronic kidney disease Current Visit: Yes Status: Acute Plan to address problem: Chronic kidney disease presumably secondary to diabetic nephropathy/ hypertensive nephrosclerosis. Acute kidney injury probably prerenal azotemia secondary to sepsis and volume depletion with hyperglycemia and Osmotic diuresis. Kidney function continues to improve. No labs today. Continue to monitor electrolytes and renal function (2) Hypertensive chronic kidney disease with stage 1 through stage 4 chronic kidney disease, or unspecified chronic kidney disease Current Visit: Yes Status: Acute Plan to address problem: Follow-up blood pressure on current medications (3) Chronic systolic heart failure Current Visit: Yes Status: Acute Plan to address problem: Diuretics on hold. Monitor closely (4) Hyponatremia Current Visit: Yes Status: Acute Plan to address problem: Hypovolemic on presentation. Sodium has improved back to normal (5) Pneumonia Current Visit: Yes Status: Acute Qualifiers: Pneumonia type: P Aspiration pneumonia type: A Laterality: L Lung location: L Plan to address problem: Continue antibiotics appropriately dosed to kidney function (6) Hyperkalemia Current Visit: No Status: Acute Plan to address problem: Potassium is normal (7) Type 2 diabetes mellitus with diabetic chronic kidney disease Current Visit: No Status: Chronic Qualifiers: Diabetes mellitus senior care insulin use: D Chronic kidney disease stage: stage 2 (mild) Plan to address problem: Follow blood sugars on current medications. Blood sugar management by primary attending (8) Hemoptysis Current Visit: Yes Status: Acute Plan to address problem: CT chest only showed pneumonia. Hemoptysis is resolving. Continue antibiotics Subjective Date of service: 02/23/17 Principal diagnosis: chronic kidney disease with acute kidney injury Interval history: Patient seen lying in bed. Communicating by writing. He has no complaints. He is doing much better Objective - Exam Narrative Exam: Middle-aged -[place] lying In bed in no acute distress HEENT: NCAT, pink oral mucous membrane Neck: Supple, no venous distention CVS: S1S2 RRR with no murmur, rub or gallop Chest: Bilateral rhonchi but improved Abdomen: Protuberant, soft, nontender, no organomegaly, bowel sounds are present Extremities: No edema Neuro: Awake, alert no focal deficits - Vital Signs Vital signs: Vital Signs - 12hr 02/22/17 02/23/17 02/23/17 22:00 01:31 05:13 Temperature 98.4 F 98.5 F Pulse Rate 64 67 Respiratory 18 20 18 Rate Blood Pressure Blood Pressure 126/82 151/91 [Right] O2 Sat by Pulse 97 95 Oximetry 02/23/17 02/23/17 02/23/17 07:58 08:00 08:27 Temperature 98.0 F Pulse Rate 70 66 Respiratory 20 20 Rate Blood Pressure 138/81 Blood Pressure [Right] O2 Sat by Pulse 97 98 Oximetry - Lab 02/22/17 07:04 02/22/17 07:04 Most recent lab results Calcium 8.6 mg/dL (8.4-10.2) 02/22/17 07:04 Phosphorus 2.90 mg/dL (2.5-4.5) 02/19/17 05:33 Magnesium 2.10 mg/dL (1.7-2.3) 02/19/17 05:33
[2017-02-23] MEDS: LEVAQUIN 750MG/150ML 750 MG/150 ML BAG IV SCH (10:18)
[2017-02-23] MEDS: LEVEMIR SUB-Q SCH (10:19)
[2017-02-23] MEDS: LASIX PO SCH (10:19)
[2017-02-23] MEDS: NORVASC PO SCH (10:19)
--- NOTE | 2017-02-23 11:38 | Progress Note ---
Assessment and Plan Hospital-acquired pneumonia. CT scan consistent with airspace consolidation possible necrotizing pneumonia.afebrile Hemoptysis. Almost completely resolved Acute on chronic kidney injury Cardiomyopathy, CHF with low ejection fraction Deaf-mute Recommendations Complete ABX, we recommend a minimum of 7 days. He can be switched over to oral antibiotics once the patient is without fever for 24-48 hrs. Sputum culture thus far negative Out of bed as tolerated DVT prophylaxis Outpatient chest x-ray follow-up in 6 weeks. Subjective Date of service: 02/23/17 Principal diagnosis: chronic kidney disease with acute kidney injury Interval history: Report cough has diminished substantially. No fever reported. No respiratory complaints Objective Vital Signs - 12hr 02/23/17 02/23/17 02/23/17 01:31 05:13 07:58 Temperature 98.4 F 98.5 F Pulse Rate 64 67 Respiratory 20 18 20 Rate Blood Pressure Blood Pressure 126/82 151/91 [Right] O2 Sat by Pulse 97 95 97 Oximetry 02/23/17 02/23/17 08:00 08:27 Temperature 98.0 F Pulse Rate 70 66 Respiratory 20 Rate Blood Pressure 138/81 Blood Pressure [Right] O2 Sat by Pulse 98 Oximetry Constitutional: no acute distress, alert Eyes: non-icteric ENT: oropharynx moist Neck: supple, no lymphadenopathy, no JVD Effort: normal Ascultation: Bilateral: clear, diminished breath sounds Cardiovascular: regular rate and rhythm Gastrointestinal: normoactive bowel sounds, non-distended Integumentary: normal Extremities: no cyanosis Neurologic: normal mental status, non-focal exam, other (deaf-mute) Psychiatric: mood appropriate, affect normal CBC and BMP: 02/22/17 07:04 02/22/17 07:04 ABG, PT/INR, D-dimer: PT/INR, D-dimer PT 18.6 Sec. (12.2-14.9) H 02/16/17 20:00 INR 1.47 (0.87-1.13) H 02/16/17 20:00 Abnormal lab findings: Abnormal Labs 02/17/17 02/17/17 02/17/17 03:00 07:56 10:49 Hgb Hct MCV MCH RDW Plt Count Lymphocytes % (Manual) Monocytes % (Manual) Lymphocytes # (Manual) Monocytes # (Manual) Sodium Potassium Chloride BUN Creatinine Glucose POC Glucose 313 H 370 H Iron TIBC Total Bilirubin AST Alkaline Phosphatase Troponin T 0.100 H Albumin Lipase Vancomycin Trough 02/17/17 02/17/17 02/17/17 13:34 14:23 15:59 Hgb Hct MCV MCH RDW Plt Count Lymphocytes % (Manual) Monocytes % (Manual) Lymphocytes # (Manual) Monocytes # (Manual) Sodium Potassium Chloride BUN Creatinine Glucose POC Glucose 430 H 366 H 382 H Iron TIBC Total Bilirubin AST Alkaline Phosphatase Troponin T Albumin Lipase Vancomycin Trough 02/17/17 02/17/17 02/18/17 18:12 21:32 05:08 Hgb 10.8 L Hct 33.0 L MCV 83 L MCH 27 L RDW Plt Count 99 L Lymphocytes % (Manual) 7.0 L Monocytes % (Manual) 12.0 H Lymphocytes # (Manual) 0.5 L Monocytes # (Manual) 0.9 H Sodium Potassium Chloride BUN Creatinine Glucose POC Glucose 434 H 333 H Iron TIBC Total Bilirubin AST Alkaline Phosphatase Troponin T Albumin Lipase Vancomycin Trough 02/18/17 02/18/17 02/18/17 05:08 07:40 12:15 Hgb Hct MCV MCH RDW Plt Count Lymphocytes % (Manual) Monocytes % (Manual) Lymphocytes # (Manual) Monocytes # (Manual) Sodium 127 L Potassium 5.3 H Chloride 89.0 L BUN 47 H Creatinine 2.2 H Glucose 365 H POC Glucose 315 H 350 H Iron TIBC Total Bilirubin AST Alkaline Phosphatase Troponin T Albumin Lipase Vancomycin Trough 02/18/17 02/18/17 02/19/17 16:29 22:07 05:33 Hgb 10.9 L Hct 32.7 L MCV 81 L MCH 27 L RDW Plt Count 88 L Lymphocytes % (Manual) 10.0 L Monocytes % (Manual) 8.0 H Lymphocytes # (Manual) 0.7 L Monocytes # (Manual) Sodium Potassium Chloride BUN Creatinine Glucose POC Glucose 282 H 232 H Iron TIBC Total Bilirubin AST Alkaline Phosphatase Troponin T Albumin Lipase Vancomycin Trough 02/19/17 02/19/17 02/19/17 05:33 08:35 12:27 Hgb Hct MCV MCH RDW Plt Count Lymphocytes % (Manual) Monocytes % (Manual) Lymphocytes # (Manual) Monocytes # (Manual) Sodium 130 L Potassium Chloride 88.5 L BUN 42 H Creatinine 2.0 H Glucose 223 H POC Glucose 233 H 222 H Iron TIBC Total Bilirubin 2.50 H AST 52 H Alkaline Phosphatase 182 H Troponin T Albumin 3.4 L Lipase Vancomycin Trough 02/19/17 02/19/17 02/20/17 17:02 20:50 06:44 Hgb 11.2 L Hct 33.3 L MCV 82 L MCH 27 L RDW Plt Count 102 L Lymphocytes % (Manual) Monocytes % (Manual) 14.0 H Lymphocytes # (Manual) 0.8 L Monocytes # (Manual) Sodium Potassium Chloride BUN Creatinine Glucose POC Glucose 208 H 273 H Iron TIBC Total Bilirubin AST Alkaline Phosphatase Troponin T Albumin Lipase Vancomycin Trough 02/20/17 02/20/17 02/20/17 06:44 06:44 08:02 Hgb Hct MCV MCH RDW Plt Count Lymphocytes % (Manual) Monocytes % (Manual) Lymphocytes # (Manual) Monocytes # (Manual) Sodium 130 L Potassium Chloride 90.7 L BUN 32 H Creatinine 1.7 H Glucose 226 H POC Glucose 231 H Iron 21 L TIBC 224 L Total Bilirubin AST Alkaline Phosphatase Troponin T Albumin Lipase 106 H Vancomycin Trough 02/20/17 02/20/17 02/20/17 13:01 17:41 22:08 Hgb Hct MCV MCH RDW Plt Count Lymphocytes % (Manual) Monocytes % (Manual) Lymphocytes # (Manual) Monocytes # (Manual) Sodium Potassium Chloride BUN Creatinine Glucose POC Glucose 245 H 183 H 180 H Iron TIBC Total Bilirubin AST Alkaline Phosphatase Troponin T Albumin Lipase Vancomycin Trough 02/21/17 02/21/17 02/21/17 05:28 05:28 10:17 Hgb 11.1 L Hct 33.1 L MCV 82 L MCH RDW 15.4 H Plt Count 131 L Lymphocytes % (Manual) Monocytes % (Manual) 14.0 H Lymphocytes # (Manual) 1.0 L Monocytes # (Manual) 1.0 H Sodium 136 L Potassium Chloride 96.7 L BUN 27 H Creatinine Glucose 120 H POC Glucose 202 H Iron TIBC Total Bilirubin AST Alkaline Phosphatase Troponin T Albumin Lipase 111 H Vancomycin Trough 02/21/17 02/21/17 02/21/17 12:32 17:11 21:58 Hgb Hct MCV MCH RDW Plt Count Lymphocytes % (Manual) Monocytes % (Manual) Lymphocytes # (Manual) Monocytes # (Manual) Sodium Potassium Chloride BUN Creatinine Glucose POC Glucose 187 H 146 H 223 H Iron TIBC Total Bilirubin AST Alkaline Phosphatase Troponin T Albumin Lipase Vancomycin Trough 09/02/22/17 02/22/17 07:04 07:04 08:23 Hgb 10.8 L Hct 33.4 L MCV 82 L MCH 26 L RDW Plt Count Lymphocytes % (Manual) Monocytes % (Manual) Lymphocytes # (Manual) Monocytes # (Manual) Sodium 136 L Potassium Chloride BUN 22 H Creatinine Glucose 144 H POC Glucose 165 H Iron TIBC Total Bilirubin AST Alkaline Phosphatase Troponin T Albumin Lipase Vancomycin Trough 02/22/17 02/22/17 02/22/17 12:42 17:26 21:00 Hgb Hct MCV MCH RDW Plt Count Lymphocytes % (Manual) Monocytes % (Manual) Lymphocytes # (Manual) Monocytes # (Manual) Sodium Potassium Chloride BUN Creatinine Glucose POC Glucose 203 H 187 H Iron TIBC Total Bilirubin AST Alkaline Phosphatase Troponin T Albumin Lipase Vancomycin Trough 26.3 H 02/22/17 02/23/17 21:25 10:04 Hgb Hct MCV MCH RDW Plt Count Lymphocytes % (Manual) Monocytes % (Manual) Lymphocytes # (Manual) Monocytes # (Manual) Sodium Potassium Chloride BUN Creatinine Glucose POC Glucose 147 H 196 H Iron TIBC Total Bilirubin AST Alkaline Phosphatase Troponin T Albumin Lipase Vancomycin Trough
--- NOTE | 2017-02-23 12:00 | Discharge Summary ---
Providers - Providers Date of Admission: 02/16/17 22:53 Date of discharge: 02/23/17 Attending physician: PALOMO DALTON 02/21/17 09:58 Consult to Physician [CONS] Routine Consulting Provider: GINA CASTILLO Reason For Exam: Hemoptysis,Pneumonia [facility] consult to:: Dr. Castillo Notified:: Triniyt WARREN Phone number called:: Was contact made?: Yes If yes, spoke with:: Nicolasa-Office Time called:: 10:56 Primary care physician: WORD PROCESSING SUPERVISOR Hospitalization Condition: Fair Disposition: DC-01 TO HOME OR SELFCARE Core Measure Documentation - Palliative Care Palliative Care/ Comfort Measures: Not Applicable - Core Measures Any of the following diagnoses?: none Exam - Constitutional Vitals: Temp Pulse Resp BP Pulse Ox 98.0 F 66 20 138/81 98 02/23/17 08:27 02/23/17 08:27 02/23/17 08:27 02/23/17 08:27 02/23/17 08:27 Plan Activity: advance as tolerated Diet: low fat, low cholesterol, low salt, diabetic Additional Instructions: 1.Follow up with PCP in 1 week. 2.Follow up with Pulmonology in 1 week. 3.Follow up with cardiology in 1 week. 4.Repeat Chest Xray in 6 weeks to be followed by PCP at [facility] Follow up with: PRIMARY MD RAINER [Primary Care Provider] - 3-5 Days Forms: Discharge Signature Page Prescriptions: Benzonatate [Tessalon Perles] 100 mg PO Q8HR PRN #20 capsule PRN Reason: Cough Insulin Detemir [Levemir] 20 units SUB-Q DAILY #1 vial Levofloxacin [Levaquin] 750 mg PO QDAY #7 tablet
== END 2017-02-23 14:00 | disposition home or self-care (01) | DRG 871 ==
LOC: ED 19:20 → 4A 22:53
PROVIDERS: ADMIT Internal Medicine; ATTEND Internal Medicine
DX: A41.9 Sepsis, unspecified organism (principal); J18.9 Pneumonia, unspecified organism; K85.90 Acute pancreatitis without necrosis or infection, unspecified; E87.1 Hypo-osmolality and hyponatremia; I42.9 Cardiomyopathy, unspecified; I50.22 Chronic systolic (congestive) heart failure; N17.9 Acute kidney failure, unspecified; I25.10 Atherosclerotic heart disease of native coronary artery without angina pectoris; Y95 Nosocomial condition; D69.6 Thrombocytopenia, unspecified; I13.10 Hypertensive heart and chronic kidney disease without heart failure, with stage 1 through stage 4 chronic kidney disease, or unspecified chronic kidney disease; N18.2 Chronic kidney disease, stage 2 (mild); E11.22 Type 2 diabetes mellitus with diabetic chronic kidney disease; E87.5 Hyperkalemia; Z79.899 Other long term (current) drug therapy; Z79.4 Long term (current) use of insulin; Z82.49 Family history of ischemic heart disease and other diseases of the circulatory system
CPT/HCPCS: 36415; 71010; 71250; 76705; 80048; 80053; 80061; 80202; 82150; 82962; 83550; 83690; 83735; 83880; 84100; 84484; 85007; 85025; 85027; 85610; 85730; 87040; 87070; 87205; 93005; 93010; 93306; 94760; 96372; 96374; 96375; J1644; J1815; J1818; J1956; J2270; J2405; J2543; J3370; J7030; J7040